=== PATIENT | female | born 1975 | race Caucasian/White ===

== ENCOUNTER 2017-04-19 20:14 | Emergency (ER) | payer OTHER ==
[~2017-04-19] VITALS: Ht 172.7 cm; Wt 62.1 kg
[2017-04-19 21:21] LABS: BASO # 0.1 x10^3/uL (0.0-0.2); BASO % 1 % (0-3); EOS % 0 % (0-3); HEMOGLOBIN 13.7 g/dL (12.0-15.5); LYMPH # 2.3 x10^3/uL (1.0-4.8); LYMPH % 20 % (24-48); MEAN CORPUSCULAR HEMOGLOBIN 33 pg (25-35); MEAN CORPUSCULAR HGB CONC 34 g/dL (31-37); MEAN CORPUSCULAR VOLUME 97 fL (79-100); MONO % 4 % (0-9); NEUT % 74 % (31-73); PLATELET COUNT 229 x10^3/uL (140-400); RED BLOOD COUNT 4.11 x10^6/uL (3.50-5.40); RED CELL DISTRIBUTION WIDTH 12.5 % (11.5-14.5); WHITE BLOOD COUNT 11.5 x10^3/uL (4.0-11.0)
[2017-04-19 21:38] LABS: ALBUMIN 4.2 g/dL (3.4-5.0); ALBUMIN/GLOBULIN RATIO 1.5 (1.0-1.7); CALCIUM 8.5 mg/dL (8.5-10.1); CREATININE 0.9 mg/dL (0.6-1.0); GFR 69.3; TOTAL BILIRUBIN 0.8 mg/dL (0.2-1.0)
[2017-04-19 21:40] LABS: POTASSIUM 2.9 mmol/L (3.5-5.1)
[2017-04-19] MEDS ORDERED: POTASSIUM CHLORIDE 20 MEQ TABLET.ER. PO ONE (21:45)
--- NOTE | 2017-04-19 21:47 | RAD ---
CT scan of the head without contrast 04/19/2017 Clinical History: Syncope. Technique: Unenhanced, contiguous, 5 mm axial sections were obtained through the head. One or more of the following individualized dose reduction techniques were utilized for this study: 1. Automated exposure control. 2. Adjustment of the mA and/or kV according to patient size. 3. Use of iterative reconstruction technique. Findings: The ventricles and sulci are within normal limits in size and configuration. No focal area of abnormal attenuation is seen involving the brain parenchyma. No extra-axial fluid collection is seen. No skull fracture is seen. Impression: Negative study. Electronically signed by: Charlie Ramirez MD (04/19/2017 9:43 PM) [facility]
--- NOTE | 2017-04-19 22:17 | PHYS DOC ---
Past Medical History Past Medical History: Asthma Past Surgical History: No Surgical History Alcohol Use: Heavy Drug Use: None Adult General Chief Complaint Chief Complaint: SYNCOPE HPI HPI Patient is a 42 year old female who presents here today secondary to syncopal episode. Family reports that she was drinking alcohol today proximally 6-8 beers and passed out while she was sitting in a chair and hit her head on the concrete. Patient denies any history of hypertension diabetes liver longer kidney pals. Patient reports she does have a history of asthma. Patient denies any history of coronary disease or strokes in the past. Patient denies any prior surgeries. Patient reports she does smoke and occasionally drinks no drugs. Patient's last period was approximately 2 weeks ago. Patient has any fevers shakes chills nausea vomiting diarrhea chest pain terns breath abdominal pain dysuria frequency or urgency. Patient denies any C-spine L-spine or T- spine tenderness. Family reports that she fell down and hit her head and became lucid approximately 10 seconds after she hit her head. Patient reports she currently feels back to baseline and is requesting a CAT scan. Review of Systems Review of Systems Constitutional: Denies fever or chills Eyes: Denies change in visual acuity, redness, or eye pain All other review systems are negative except as documented in the history of present illness portion. Current Medications Current Medications Current Medications Medications (Trade) Dose Ordered Sig/Alysia Start Time Stop Time Status Last Admin Dose Admin Potassium Chloride (Klor-Con) 40 meq 1X ONCE 04/19/17 21:45 04/19/17 21:46 DC Allergies Allergies Allergies Coded Allergies Type Severity Reaction Last Updated Verified amoxicillin Allergy Intermediate Nausea and Vomiting 04/19/17 Yes clavulanic acid Allergy Intermediate Nausea and Vomiting 04/19/17 Yes Physical Exam Physical Exam Constitutional: Well developed, well nourished, no acute distress, non-toxic appearance. [] HENT: Normocephalic, atraumatic, bilateral external ears normal, oropharynx moist, no oral exudates, nose normal. [] Eyes: PERRLA, EOMI, conjunctiva normal, no discharge. [] Neck: Normal range of motion, no tenderness, supple, no stridor. [] Cardiovascular:Heart rate regular rhythm, no murmur [] Lungs & Thorax: Bilateral breath sounds clear to auscultation [] Abdomen: Bowel sounds normal, soft, no tenderness, no masses, no pulsatile masses. [] Skin: Warm, dry, no erythema, no rash. [] Back: No tenderness, no CVA tenderness. [] Extremities: No tenderness, no cyanosis, no clubbing, ROM intact, no edema. [] Neurologic: Alert and oriented X 3, normal motor function, normal sensory function, no focal deficits noted. [] Psychologic: Affect normal, judgement normal, mood normal. [] Current Patient Data Vital Signs Vital Signs Date Time Temp Pulse Resp B/P (MAP) Pulse Ox O2 Delivery O2 Flow Rate FiO2 04/19/17 20:47 98 16 113/63 (80) 97 04/19/17 20:17 97.5 Room Air 97.5 Lab Values Laboratory Tests Test 04/19/17 20:30 White Blood Count 11.5 x10^3/uL (4.0-11.0) H Red Blood Count 4.11 x10^6/uL (3.50-5.40) Hemoglobin 13.7 g/dL (12.0-15.5) Hematocrit 40.0 % (36.0-47.0) Mean Corpuscular Volume 97 fL (79-100) Mean Corpuscular Hemoglobin 33 pg (25-35) Mean Corpuscular Hemoglobin Concent 34 g/dL (31-37) Red Cell Distribution Width 12.5 % (11.5-14.5) Platelet Count 229 x10^3/uL (140-400) Neutrophils (%) (Auto) 74 % (31-73) H Lymphocytes (%) (Auto) 20 % (24-48) L Monocytes (%) (Auto) 4 % (0-9) Eosinophils (%) (Auto) 0 % (0-3) Basophils (%) (Auto) 1 % (0-3) Neutrophils # (Auto) 8.5 x10^3uL (1.8-7.7) H Lymphocytes # (Auto) 2.3 x10^3/uL (1.0-4.8) Monocytes # (Auto) 0.5 x10^3/uL (0.0-1.1) Eosinophils # (Auto) 0.0 x10^3/uL (0.0-0.7) Basophils # (Auto) 0.1 x10^3/uL (0.0-0.2) Sodium Level 134 mmol/L (136-145) L Potassium Level 2.9 mmol/L (3.5-5.1) *L Chloride Level 97 mmol/L (98-107) L Carbon Dioxide Level 22 mmol/L (21-32) Anion Gap 15 (6-14) H Blood Urea Nitrogen 6 mg/dL (7-20) L Creatinine 0.9 mg/dL (0.6-1.0) Estimated GFR (Cockcroft-Gault) 69.3 BUN/Creatinine Ratio 7 (6-20) Glucose Level 87 mg/dL (70-99) Calcium Level 8.5 mg/dL (8.5-10.1) Total Bilirubin 0.8 mg/dL (0.2-1.0) Aspartate Amino Transferase (AST) 16 U/L (15-37) Alanine Aminotransferase (ALT) 18 U/L (14-59) Alkaline Phosphatase 38 U/L (46-116) L Troponin I Quantitative < 0.017 ng/mL (0.000-0.055) Total Protein 7.0 g/dL (6.4-8.2) Albumin 4.2 g/dL (3.4-5.0) Albumin/Globulin Ratio 1.5 (1.0-1.7) Ethyl Alcohol Level 257 mg/dL (0-10) H Laboratory Tests 04/19/17 20:30 Laboratory Tests 04/19/17 20:30 EKG EKG [] Radiology/Procedures Radiology/Procedures []EKG reveals normal sinus rhythm at [address]-T wave abnormalities with no evidence of STEMI. Interpreted by NIKKO Menchaca CT scan of the head reveals no acute pathology. Course & Med Decision Making Course & Med Decision Making Pertinent Labs and Imaging studies reviewed. (See chart for details) []This is a 42-year-old female who presents here today after syncopal episode most likely secondary to alcohol intoxication. Patient's workup in ER has been unremarkable except for hypokalemia. Patient was repleted in the ED with by mouth potassium. Patient is CT scan of her head which was normal. Patient's CBC and chemistry were also unremarkable other than hypokalemia. Patient's alcohol level was elevated. Patient will be discharged home in stable condition with family who are sober and feel comfortable taking her home and will be we'll observe her at home. Kvng Disclaimer Dragon Disclaimer This electronic medical record was generated, in whole or in part, using a voice recognition dictation system. Departure Departure Impression: Primary Impression: Alcohol intoxication Additional Impressions: Head trauma Hypokalemia Disposition: HOME, SELF-CARE Condition: STABLE Referrals: NEREYDA CLAY MD (PCP) Problem Qualifiers ENMA HUNTER MD Apr 19, 2017 22:17
[2017-04-19 23:00] VITALS: BP 103/60
--- NOTE | 2017-04-20 12:48 | EKG ---
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
== END 2017-04-19 23:11 | disposition home or self-care (01) ==
LOC: ER 20:14
DX: S09.90XA Unspecified injury of head, initial encounter (principal); E87.6 Hypokalemia; F10.129 Alcohol abuse with intoxication, unspecified; J45.909 Unspecified asthma, uncomplicated; Y90.8 Blood alcohol level of 240 mg/100 ml or more; Z88.8 Allergy status to other drugs, medicaments and biological substances; Z88.1 Allergy status to other antibiotic agents; W07.XXXA Fall from chair, initial encounter; Y93.89 Activity, other specified; Y92.89 Other specified places as the place of occurrence of the external cause; Y99.8 Other external cause status
CPT/HCPCS: 36415; 70450; 80053; 84484; 85025; 93005; 99285; G0480

== ENCOUNTER → 2017-05-14 | Outpatient (CLI) | payer OTHER ==
[2017-04-19 23:00] VITALS: BP 103/60
--- NOTE | 2017-05-14 16:35 | CARD ---
APPROVED REPORT EXAM: Two-dimensional and M-mode echocardiogram with Doppler and color Doppler. Other Information Quality : Good INDICATION Syncope 2D DIMENSIONS Left Atrium(2D)3.0 (1.6-4.0cm)IVSd1.0 (0.7-1.1cm) Aortic Root(2D)2.6 (2.0-3.7cm)LVDd4.4 (3.9-5.9cm) LVOT Diameter1.9 (1.8-2.4cm)PWd1.0 (0.7-1.1cm) LVDs3.0 (2.5-4.0cm)FS (%) 32.2 % SV53.8 mlLVEF(%)60.5 (>50%) Aortic Valve AoV Peak Marcos.141.3cm/sAoV VTI29.0cm AO Peak GR.8.0mmHgLVOT Peak Marcos.123.2cm/s AO Mean GR.5mmHgAVA (VMAX)2.60cm2 PETER (VTI)2.50cm2 Mitral Valve MV E Heqfedmx22.5cm/sMV DECEL NTCC529qj MV A Yqwbtuit65.3cm/sE/A Ratio1.3 Tricuspid Valve TR P. Tpkjlyos868xk/sRAP CDEOOVRC3jmWj TR Peak Gr.65lcUyXKNF23usUa LEFT VENTRICLE The left ventricle is normal size. There is normal left ventricular wall thickness. Left ventricle sy stolic function is normal. The Ejection Fraction is 55-60%. There is normal LV segmental wall motion. The left ventricular diastolic function and filling is normal for age. RIGHT VENTRICLE The right ventricle is normal size. The right ventricular systolic function is normal. ATRIA The left atrium size is normal. The right atrium size is normal. The interatrial septum is intact wit h no evidence for an atrial septal defect or patent foramen ovale as noted on 2-D or Doppler imaging. AORTIC VALVE The aortic valve is normal in structure and function. Doppler and Color Flow revealed no significant aortic regurgitation. There is no significant aortic valvular stenosis. MITRAL VALVE The mitral valve is normal in structure and function. There is no evidence of mitral valve prolapse. There is no mitral valve stenosis. Doppler and Color Flow revealed no mitral valve regurgitation note d. TRICUSPID VALVE The tricuspid valve is normal in structure and function. Doppler and Color Flow revealed mild tricusp id regurgitation. PULMONIC VALVE The pulmonary valve is normal in structure and function. Doppler and Color Flow revealed no pulmonic valvular regurgitation. There is no pulmonic valvular stenosis. GREAT VESSELS The aortic root is normal in size. The ascending aorta is normal in size. The IVC is normal in size a nd collapses >50% with inspiration. PERICARDIAL EFFUSION There is no pleural effusion. There is no evidence of significant pericardial effusion. Critical Notification Critical Value: No <Conclusion> Left ventricle systolic function is normal. The Ejection Fraction is 55-60%. There is normal LV segmental wall motion. Doppler and Color Flow revealed mild tricuspid regurgitation. There is no evidence of significant pericardial effusion.
== END | disposition home or self-care (01) ==
LOC: ECHO 09:48
PROVIDERS: ATTEND Family Medicine
DX: I07.1 Rheumatic tricuspid insufficiency (principal); R55 Syncope and collapse
CPT/HCPCS: 93306

== ENCOUNTER → 2019-06-09 | Day surgery (SDC) | payer OTHER ==
[~2019-06-09] MED LIST: ALBU2.5V8 INH; BUDE10.2 IH; CETI10TA22 PO; IV RINGERS,LACTATED 1000ML 1,000 ML IV SCH; LIDOCAINE 1% PF 2 ML VIAL. ID PRN; LIDOCAINE 2% PF 5 ML VIAL. ONE; MIDAZOLAM HCL/PF 2 MG/2 ML VIAL. IV PRN; PROPOFOL 40 ML IV ONE; fentaNYL PF VIAL 100 MCG/2 ML VIAL IV PRN
[2019-06-09 08:27] VITALS: BP 104/57
--- NOTE | 2019-06-10 15:07 | PATHOLOGY ---
[facility] Accession Number: [id number] . 01 Material submitted: . rectosigmoid junction - BIOPSY RECTO-SIGMOID MASS . 01 Clinical history: . Abnormal CT scan, diarrhea, rectal bleeding . 02 Diagnosis: Colorectal biopsies, rectosigmoid mass: - ADENOCARCINOMA, MODERATELY DIFFERENTIATED. . (JPM:michael; 06/10/2019) S 06/10/2019 0919 Local . 02 Comment: Sections of the rectosigmoid mass biopsy reveal multiple segments of colonic mucosa. There focally appear to be malignant glands infiltrating a reactive desmoplastic stroma. The remaining biopsy segments reveal colonic glands showing focal hyperplastic changes with focally admixed dysplastic glands showing high-grade dysplasia. The morphologic findings are supportive of the diagnosis of a moderately differentiated colorectal adenocarcinoma. The case is also examined by Dr. Lundberg, who concurs with the diagnosis. (JPM:michael; 06/10/2019) . 02 Electronically signed: . Maximus Chahal MD, Pathologist NPI- [id number] . 01 Gross description: . The specimen is received in formalin, labeled "Indu Contreras, biopsy recto-sigmoid mass", are few irregular fragments of florez soft tissue measuring 0.5 x 0.4 x 0.1 cm in aggregate. Entirely submitted in A1. ([facility]; 06/09/2019) [facility] 06/09/2019 1838 Local . 02 Pathologist provided ICD-10: C19 . 02 CPT . 357712 Specimen Comment: A courtesy copy of this report has been sent to [phone], [phone] Specimen Comment: [id number] Specimen Comment: Report sent to / DR CARDONA Performed at: [address] [place] [address] [address], [place], [place] [id number] MD Miguel Angel Radford MD Phone: [phone] Performed at: [address] [id number] MD Maximus Chahal MD Phone: [phone]
== END ==
LOC: ENDOS 06:25
PROVIDERS: ATTEND Internal Medicine Gastroenterology
DX: K92.1 Melena (principal); C19 Malignant neoplasm of rectosigmoid junction; K64.0 First degree hemorrhoids; J45.909 Unspecified asthma, uncomplicated; K21.9 Gastro-esophageal reflux disease without esophagitis; F15.90 Other stimulant use, unspecified, uncomplicated; Z88.1 Allergy status to other antibiotic agents; Z88.8 Allergy status to other drugs, medicaments and biological substances; Z72.89 Other problems related to lifestyle; Z98.51 Tubal ligation status
CPT/HCPCS: 45331; 45335; 81025; 88305; J2001; J2704

== ENCOUNTER 2019-06-21 05:38 | Inpatient (IN) | payer OTHER ==
[~2019-06-21] VITALS: Ht 172.7 cm; Wt 66.5 kg
[~2019-06-21 05:38] MED LIST changes: +FLUT9.9S NS; -IV RINGERS,LACTATED 1000ML 1,000 ML IV SCH; -LIDOCAINE 1% PF 2 ML VIAL. ID PRN; -LIDOCAINE 2% PF 5 ML VIAL. ONE; -MIDAZOLAM HCL/PF 2 MG/2 ML VIAL. IV PRN; -PROPOFOL 40 ML IV ONE; -fentaNYL PF VIAL 100 MCG/2 ML VIAL IV PRN
[2019-06-21] MEDS ORDERED: ACETAMINOPHEN 500 MG TABLET PO PRN (06:00)
[2019-06-21] MEDS ORDERED: ceFAZolin 1GM IVPB FOR OMNI 1 GM/50 ML BAG IV ONE (07:00)
[2019-06-21] MEDS ORDERED: ONDANSETRON PF 4 MG/2 ML VIAL. IV PRN (07:00)
[2019-06-21] MEDS ORDERED: fentaNYL PF VIAL 100 MCG/2 ML VIAL IV PRN (07:00)
[2019-06-21] MEDS ORDERED: PROCHLORPERAZINE 10 MG/2 ML VIAL. IV PRN (07:00)
[2019-06-21] MEDS ORDERED: LIDOCAINE 1% PF 2 ML VIAL. ID PRN (07:00)
[2019-06-21] MEDS ORDERED: IV RINGERS,LACTATED 1000ML 1,000 ML IV SCH (07:00)
[2019-06-21] MEDS ORDERED: ONDANSETRON PF 4 MG/2 ML VIAL. ONE (07:20)
[2019-06-21] MEDS ORDERED: FAMOTIDINE 20 MG/2 ML VIAL ONE (07:20)
[2019-06-21] MEDS ORDERED: PROPOFOL 20 ML IV ONE (07:20)
[2019-06-21] MEDS ORDERED: DEXAMETHASONE SOD PHOS 4 MG/ML VIAL ONE (07:20)
[2019-06-21] MEDS ORDERED: fentaNYL PF VIAL 100 MCG/2 ML VIAL ONE ×3 (07:21→09:48)
[2019-06-21] MEDS ORDERED: MIDAZOLAM HCL/PF 2 MG/2 ML VIAL. ONE (07:21)
[2019-06-21] MEDS ORDERED: ROCURONIUM 50 MG/5 ML VIAL. ONE (07:21)
[2019-06-21] MEDS ORDERED: KETAMINE HCL IN NACL, ISO-OSM 50 MG/5 ML SYRINGE ONE (07:56)
[2019-06-21] MEDS ORDERED: NEOSTIGMINE METHYLSULFATE 5 MG/5 ML SYRINGE. ONE (08:57)
[2019-06-21] MEDS ORDERED: GLYCOPYRROLATE 1 MG/5 ML VIAL. ONE (08:58)
--- NOTE | 2019-06-21 09:20 | PDOC4 ---
Operative Note Operative Note Date: 06/21/2019 Preoperative diagnosis colorectal cancer rectosigmoid junction Postoperative diagnosis: Same Procedure: Sigmoid colon resection with low anterior stapled anastomosis Surgeon: Merrick Telephoto Installer surgeon: Michael Dictation: Patient is a 44-year-old female who underwent colonoscopy for rectal bleeding was found to have a nearly obstructing colon mass at the rectosigmoid junction biopsy showing adenocarcinoma of the colon. The procedure of sigmoid colon resection with anastomosis was explained to the patient in detail risks benefits were also discussed including bleeding infection inability to heal anastomosis with leakage with possible necessary second operation. Alternatives to this procedure also discussed with the patient who seemed to understand and gave both verbal and written consent had procedure performed. Patient was taken to the operating room placed in supine position general anesthesia was initiated once patient was sleep and intubated she is placed in low lithotomy positioning her peritoneum was prepped and draped usual sterile fashion using Betadine solution and her abdomen was prepped and draped in usual sterile fashion using ChloraPrep. A midline incision was made from the pubic symphysis to just below the umbilicus is carried down through the subcutaneous tissue using electrocautery divided hemostasis down to the fascia fashion was opened with cautery and the peritoneum was further open electrocautery. On examining the abd omen the tumor could be felt right at the rectosigmoid junction just beneath the peritoneal reflection no metastatic disease was grossly visualized. Bookwalter was placed in the left colon was freed up from the left abdominal wall along the white line of Toldt with electrocautery. The left ureter was visualized and protected laterally the impact LigaSure was used to ligate and transect the posterior attachments to the rectum. A contour stapler was used to staple and transect the proximal colon. The distal rectosigmoid area was freed up from its attachments anteriorly laterally and posteriorly the right ureter was also visualized and protected laterally once there was plenty of length distal to the tumor a contour stapler again was used to staple and transect the distal rectum. Specimen sent for pathology. At this point Dr. Rodriguez went below to the peritoneum and a pursestring was placed on the proximal colon as well as a 29 mm anvil within the proximal colon and the pursestring suture was then tied. Using a EEA stapler this was placed through the rectum and the ample with the proximal colon was placed onto the EEA stapler this was tightened and fired. There were 2 good [address]nuts completely circumferential. Dr. Rodriguez then placed a proctoscope and insufflated the rectum and sigmoid colon there were no bubbles noted within the saline solution within the abdomen this was then suctioned dry. The abdomen again was irrigated and suctioned dry and the peritoneum was closed with a 2-0 running Vicryl suture and the fascia was closed with a looped 0 PDS. The subcutaneous layers closed running 2-0 Vicryl and the skin was approximate for septic and a Monocryl Mastisol Steri-Strips and island dressing were applied. Patient was awakened and bated operating room taken to recovery in stable condition all sponge instrument needle counts listed as correct estimated blood loss 20 mL ANDRES RIVERA MD Jun 21, 2019 09:20
[2019-06-21] MEDS ORDERED: SEVOFLURANE > 120 MINUTES. IH ONE (09:21)
[2019-06-21] MEDS ORDERED: oxyCODONE/APAP 5/325 1 TAB TABLET PO PRN (09:30)
[2019-06-21] MEDS ORDERED: 0.9 % SODIUM CHLORIDE 10 ML DISP.SYRIN. IV PRN (09:30)
[2019-06-21] MEDS: fentaNYL PF VIAL 100 MCG/2 ML VIAL IV PRN ×2 (09:53→10:07)
[2019-06-21] MEDS ORDERED: MORPHINE SULFATE 2 MG/ML VIAL. ONE (10:15)
[2019-06-21] MEDS: MORPHINE SULFATE 2 MG/ML VIAL. IV PRN ×6 (10:19→22:54)
[2019-06-21] MEDS ORDERED: HYDROmorphone 2 MG/ML VIAL ONE (10:36)
[2019-06-21] MEDS: HYDROmorphone 2 MG/ML VIAL IV PRN ×3 (10:40→11:03)
[2019-06-21] MEDS: IV DEXTROSE 5%-LACT RINGERS 1,000 ML IV SCH ×2 (11:52→23:48)
[2019-06-21] MEDS: KETOROLAC 15 MG/ML VIAL. IV SCH ×3 (11:52→23:48)
[2019-06-21 12:24] VITALS: BP 100/45
[2019-06-21 12:45] VITALS: BP 100/49
[2019-06-21] MEDS ORDERED: ceFAZolin SODIUM 1 GM in IV DEXTROSE 5% 50 ML IV SCH (14:00)
[2019-06-21 15:00] VITALS: BP 100/45
[2019-06-21] MEDS: ceFAZolin SODIUM IV Push 1 GM VIAL. IVP SCH ×2 (16:23→23:48)
[2019-06-21 19:00] VITALS: BP 98/41
[2019-06-21 23:00] VITALS: BP 90/40
[2019-06-21 23:55] VITALS: BP 92/54
[2019-06-22 03:00] VITALS: BP 90/48
[2019-06-22] MEDS: MORPHINE SULFATE 2 MG/ML VIAL. IV PRN ×4 (04:01→16:01)
[2019-06-22 04:11] LABS: BASO % 0 % (0-3); EOS % 0 % (0-3); HEMOGLOBIN 10.9 g/dL (12.0-15.5); LYMPH # 1.5 x10^3/uL (1.0-4.8); LYMPH % 18 % (24-48); MEAN CORPUSCULAR HEMOGLOBIN 33 pg (25-35); MEAN CORPUSCULAR HGB CONC 34 g/dL (31-37); MEAN CORPUSCULAR VOLUME 96 fL (79-100); MONO # 0.5 x10^3/uL (0.0-1.1); MONO % 6 % (0-9); NEUT % 75 % (31-73); PLATELET COUNT 209 x10^3/uL (140-400); RED BLOOD COUNT 3.33 x10^6/uL (3.50-5.40); RED CELL DISTRIBUTION WIDTH 12.3 % (11.5-14.5)
[2019-06-22] MEDS: KETOROLAC 15 MG/ML VIAL. IV SCH ×3 (06:13→17:23)
[2019-06-22 07:00] VITALS: BP 94/51
[2019-06-22] MEDS: ceFAZolin SODIUM IV Push 1 GM VIAL. IVP SCH (07:24)
--- NOTE | 2019-06-22 09:12 | PDOC ---
DONALD JHAVERI PILOT SUPERVISOR 06/22/19 0912: SURGICAL PROGRESS NOTE Subjective no flatus hungry, pain Vital Signs Vital Signs Date Time Temp Pulse Resp B/P (MAP) Pulse Ox O2 Delivery O2 Flow Rate FiO2 06/22/19 07:56 16 Room Air 06/22/19 07:00 98.1 67 94/51 (65) 96 98.1 06/22/19 03:00 2.0 I&O Intake and Output 06/22/19 07:00 Intake Total 2655 ml Output Total 580 ml Balance 2075 ml Intake IV Total 2655 ml Output Urine Total 550 ml Estimated Blood Loss 30 ml PATIENT HAS A NIETO: Yes (dc today) General: Alert, Oriented X3, Cooperative Abdomen: Soft, Other (dressing dry) Labs Laboratory Tests Test 06/21/19 06:08 06/22/19 03:35 Bedside Urine HCG, Qualitative Hcg negative (Negative) White Blood Count 8.0 x10^3/uL (4.0-11.0) Red Blood Count 3.33 x10^6/uL (3.50-5.40) Hemoglobin 10.9 g/dL (12.0-15.5) Hematocrit 32.0 % (36.0-47.0) Mean Corpuscular Volume 96 fL (79-100) Mean Corpuscular Hemoglobin 33 pg (25-35) Mean Corpuscular Hemoglobin Concent 34 g/dL (31-37) Red Cell Distribution Width 12.3 % (11.5-14.5) Platelet Count 209 x10^3/uL (140-400) Neutrophils (%) (Auto) 75 % (31-73) Lymphocytes (%) (Auto) 18 % (24-48) Monocytes (%) (Auto) 6 % (0-9) Eosinophils (%) (Auto) 0 % (0-3) Basophils (%) (Auto) 0 % (0-3) Neutrophils # (Auto) 6.0 x10^3/uL (1.8-7.7) Lymphocytes # (Auto) 1.5 x10^3/uL (1.0-4.8) Monocytes # (Auto) 0.5 x10^3/uL (0.0-1.1) Eosinophils # (Auto) 0.0 x10^3/uL (0.0-0.7) Basophils # (Auto) 0.0 x10^3/uL (0.0-0.2) Laboratory Tests Test 06/22/19 03:35 White Blood Count 8.0 x10^3/uL (4.0-11.0) Red Blood Count 3.33 x10^6/uL (3.50-5.40) Hemoglobin 10.9 g/dL (12.0-15.5) Hematocrit 32.0 % (36.0-47.0) Mean Corpuscular Volume 96 fL (79-100) Mean Corpuscular Hemoglobin 33 pg (25-35) Mean Corpuscular Hemoglobin Concent 34 g/dL (31-37) Red Cell Distribution Width 12.3 % (11.5-14.5) Platelet Count 209 x10^3/uL (140-400) Neutrophils (%) (Auto) 75 % (31-73) Lymphocytes (%) (Auto) 18 % (24-48) Monocytes (%) (Auto) 6 % (0-9) Eosinophils (%) (Auto) 0 % (0-3) Basophils (%) (Auto) 0 % (0-3) Neutrophils # (Auto) 6.0 x10^3/uL (1.8-7.7) Lymphocytes # (Auto) 1.5 x10^3/uL (1.0-4.8) Monocytes # (Auto) 0.5 x10^3/uL (0.0-1.1) Eosinophils # (Auto) 0.0 x10^3/uL (0.0-0.7) Basophils # (Auto) 0.0 x10^3/uL (0.0-0.2) Assessment/Plan pod#1 sigmoid resection await bowel function dc nieto ambulate add lovenox ANDRES RIVERA MD 06/22/19 1109: SURGICAL PROGRESS NOTE Assessment/Plan Patient doing quite well has not passed any flatus but has active bowel sounds no nausea. Abdomen soft nondistended mildly tender along the incision. Agree with Love assessment and plan we'll start clear liquid diet DONALD JHAVERI APRN Jun 22, 2019 09:12 ANDRES RIVERA MD Jun 22, 2019 11:09
[2019-06-22 11:00] VITALS: BP_SYST 53
[2019-06-22] MEDS: IV DEXTROSE 5%-LACT RINGERS 1,000 ML IV SCH ×2 (11:47→22:03)
--- NOTE | 2019-06-22 13:02 | NUR ---
SW following for discharge planning. Discussed with RN, pt is from home with . RN advised no SW needs at this time. SW will continue to follow.
[2019-06-22] MEDS: ENOXAPARIN 40 MG/0.4 ML SYRINGE. SQ SCH (14:22)
[2019-06-22 15:00] VITALS: BP 92/45
[2019-06-22 19:15] VITALS: BP 80/38
[2019-06-22] MEDS: oxyCODONE/APAP 5/325 1 TAB TABLET PO PRN (22:02)
[2019-06-22] MEDS: ONDANSETRON PF 4 MG/2 ML VIAL. IV PRN (22:02)
[2019-06-22 23:07] VITALS: BP 95/56
[2019-06-23] MEDS: KETOROLAC 15 MG/ML VIAL. IV SCH ×2 (00:03→05:26)
[2019-06-23 02:46] VITALS: BP 87/42
[2019-06-23] MEDS: ONDANSETRON PF 4 MG/2 ML VIAL. IV PRN ×2 (06:53→20:21)
[2019-06-23 07:00] VITALS: BP 98/62
--- NOTE | 2019-06-23 08:10 | NUR ---
SW following. Pt from home. RN advised no SW needs at this time. SW will continue to follow.
[2019-06-23] MEDS: oxyCODONE/APAP 5/325 1 TAB TABLET PO PRN ×4 (08:50→22:51)
--- NOTE | 2019-06-23 09:41 | PDOC ---
DONALD JHAVERI BEHAVIORAL GENETICIST 06/23/19 0941: SURGICAL PROGRESS NOTE Subjective + flatus some nausea last night pain managed Vital Signs Vital Signs Date Time Temp Pulse Resp B/P (MAP) Pulse Ox O2 Delivery O2 Flow Rate FiO2 06/23/19 08:50 16 Room Air 06/23/19 07:00 98.1 74 98/62 (74) 95 98.1 I&O Intake and Output 06/23/19 07:00 Intake Total 480 ml Balance 480 ml Intake Oral 480 ml # Voids 3 General: Alert, Oriented X3, Cooperative Abdomen: Soft, Other (ND) Labs Laboratory Tests Test 06/22/19 03:35 White Blood Count 8.0 x10^3/uL (4.0-11.0) Red Blood Count 3.33 x10^6/uL (3.50-5.40) Hemoglobin 10.9 g/dL (12.0-15.5) Hematocrit 32.0 % (36.0-47.0) Mean Corpuscular Volume 96 fL (79-100) Mean Corpuscular Hemoglobin 33 pg (25-35) Mean Corpuscular Hemoglobin Concent 34 g/dL (31-37) Red Cell Distribution Width 12.3 % (11.5-14.5) Platelet Count 209 x10^3/uL (140-400) Neutrophils (%) (Auto) 75 % (31-73) Lymphocytes (%) (Auto) 18 % (24-48) Monocytes (%) (Auto) 6 % (0-9) Eosinophils (%) (Auto) 0 % (0-3) Basophils (%) (Auto) 0 % (0-3) Neutrophils # (Auto) 6.0 x10^3/uL (1.8-7.7) Lymphocytes # (Auto) 1.5 x10^3/uL (1.0-4.8) Monocytes # (Auto) 0.5 x10^3/uL (0.0-1.1) Eosinophils # (Auto) 0.0 x10^3/uL (0.0-0.7) Basophils # (Auto) 0.0 x10^3/uL (0.0-0.2) Assessment/Plan s/p resection advance diet continue ambulating ok to shower ANDRES RIVERA MD 11/27/19 1110: SURGICAL PROGRESS NOTE Assessment/Plan Patient examined she is doing quite well resting comfortably in bed passing flatus today no nausea minimal pain. Wounds clean dry and intact. Agree with Love assessment and plan for advancing diet DONALD JHAVERI APRN Jun 23, 2019 09:41 ANDRES RIVERA MD Jun 23, 2019 11:10
[2019-06-23 11:00] VITALS: BP 104/52
[2019-06-23] MEDS: IV DEXTROSE 5%-LACT RINGERS 1,000 ML IV SCH (14:40)
[2019-06-23 15:00] VITALS: BP 102/66
[2019-06-23] MEDS: ENOXAPARIN 40 MG/0.4 ML SYRINGE. SQ SCH (17:54)
[2019-06-23 19:00] VITALS: BP 110/61
[2019-06-23 23:00] VITALS: BP 95/60
[2019-06-24 03:09] VITALS: BP 98/54
[2019-06-24] MEDS: IV DEXTROSE 5%-LACT RINGERS 1,000 ML IV SCH (04:00)
[2019-06-24] MEDS: oxyCODONE/APAP 5/325 1 TAB TABLET PO PRN ×2 (04:40→12:05)
[2019-06-24 07:00] VITALS: BP 90/50
[2019-06-24 10:59] VITALS: BP 106/64
[2019-06-24] MEDS: ONDANSETRON PF 4 MG/2 ML VIAL. IV PRN ×2 (12:06→18:21)
--- NOTE | 2019-06-24 13:02 | PDOC ---
PROGRESS NOTES Subjective Subjective doing well, asking for different pain med Objective Objective Vital Signs Date Time Temp Pulse Resp B/P (MAP) Pulse Ox O2 Delivery O2 Flow Rate FiO2 06/24/19 12:05 16 Room Air 06/24/19 10:59 98.4 70 106/64 (78) 97 98.4 06/23/19 19:17 2.0 Intake and Output 06/24/19 07:00 Intake Total 320 ml Balance 320 ml Intake Oral 320 ml # Voids 3 Physical Exam Abdomen: Soft, No tenderness Assessment Assessment Rectal cancer Plan Plan of Care Advance diet, change to [place] Comment Review of Relevant I have reviewed the following items gail (where applicable) has been applied. Medications Current Medications Ondansetron HCl (Zofran) 4 mg PRN Q6HRS PRN IV NAUSEA/VOMITING; Start 06/21/19 at 07:00; Stop 06/22/19 at 06:59; Status DC Fentanyl Citrate (Fentanyl 2ml Vial) 25 mcg PRN Q5MIN PRN IV MILD PAIN 1-3; Start 06/21/19 at 07:00; Stop 06/22/19 at 06:59; Status DC Fentanyl Citrate (Fentanyl 2ml Vial) 50 mcg PRN Q5MIN PRN IV MODERATE TO SEVERE PAIN Last administered on 06/21/19at 10:07; Start 06/21/19 at 07:00; Stop 06/22/19 at 06:59; Status DC Morphine Sulfate (Morphine Sulfate) 1 mg PRN Q10MIN PRN IV SEVERE PAIN 7-10 Last administered on 06/21/19at 10:35; Start 06/21/19 at 07:00; Stop 06/22/19 at 06:59; Status DC Ringer's Solution 1,000 ml @ 30 mls/hr Q24H IV Last administered on 06/21/19at 06:26; Start 06/21/19 at 07:00; Stop 06/21/19 at 18:59; Status DC Lidocaine HCl (Xylocaine-Mpf 1% 2ml Vial) 2 ml PRN 1X PRN ID PRIOR TO IV START; Start 06/21/19 at 07:00; Stop 06/22/19 at 06:59; Status DC Hydromorphone HCl (Dilaudid) 0.5 mg PRN Q10MIN PRN IV SEV PAIN, Second choice Last administered on 06/21/19at 11:03; Start 06/21/19 at 07:00; Stop 06/22/19 at 06:59; Status DC Prochlorperazine Edisylate (Compazine) 5 mg PACU PRN PRN IV NAUSEA, MRX1; Start 06/21/19 at 07:00; Stop 06/22/19 at 06:59; Status DC Acetaminophen (Tylenol) 1,000 mg 1X PREOP PRN PO PRIOR TO PROCEDURE Last administered on 06/21/19at 06:33; Start 06/21/19 at 06:00; Stop 06/21/19 at 15:00; Status DC Cefazolin Sodium 50 ml @ 100 mls/hr 1X PREOP PRN IV PRIOR TO PROCEDURE; Start 06/21/19 at 06:00; Stop 06/21/19 at 18:00; Status DC Propofol 20 ml @ As Directed STK-MED ONCE IV ; Start 06/21/19 at 07:20; Stop 06/21/19 at 07:21; Status DC Famotidine (Pepcid Vial) 20 mg STK-MED ONCE .ROUTE ; Start 06/21/19 at 07:20; Stop 06/21/19 at 07:21; Status DC Ondansetron HCl (Zofran) 4 mg STK-MED ONCE .ROUTE ; Start 06/21/19 at 07:20; Stop 06/21/19 at 07:21; Status DC Dexamethasone Sodium Phosphate (Decadron) 4 mg STK-MED ONCE .ROUTE ; Start 06/21/19 at 07:20; Stop 06/21/19 at 07:21; Status DC Rocuronium [place] (Zemuron) 50 mg STK-MED ONCE .ROUTE ; Start 06/21/19 at 07:21; Stop 06/21/19 at 07:21; Status DC Fentanyl Citrate (Fentanyl 2ml Vial) 100 mcg STK-MED ONCE .ROUTE ; Start 06/21/19 at 07:21; Stop 06/21/19 at 07:21; Status DC Midazolam HCl (Versed) 2 mg STK-MED ONCE .ROUTE ; Start 06/21/19 at 07:21; Stop 06/21/19 at 07:21; Status DC Ketamine HCl (Ketamine) 50 mg STK-MED ONCE .ROUTE ; Start 06/21/19 at 07:56; Stop 06/21/19 at 07:56; Status DC Cefazolin Sodium (Ancef 1gm Ivpb For Omni) 1 gm STK-MED ONCE IV ; Start 06/21/19 at 07:00; Stop 06/21/19 at 08:47; Status DC Neostigmine Methylsulfate (Neostigmine Methylsulfate) 5 mg STK-MED ONCE .ROUTE ; Start 06/21/19 at 08:57; Stop 06/21/19 at 08:58; Status DC Glycopyrrolate (Robinul) 1 mg STK-MED ONCE .ROUTE ; Start 06/21/19 at 08:58; Stop 06/21/19 at 08:58; Status DC Fentanyl Citrate (Fentanyl 2ml Vial) 100 mcg STK-MED ONCE .ROUTE ; Start 06/21/19 at 09:19; Stop 06/21/19 at 09:19; Status DC Sevoflurane (Ultane) 90 ml STK-MED ONCE IH ; Start 06/21/19 at 09:21; Stop 06/21/19 at 09:22; Status DC Sodium Chloride (Normal Saline Flush) 3 ml QSHIFT PRN IV AFTER MEDS AND BLOOD DRAWS; Start 06/21/19 at 09:30 Morphine Sulfate (Morphine Sulfate) 2 mg PRN Q3HRS PRN IV PAIN Last administered on 06/22/19at 16:01; Start 06/21/19 at 09:30 Oxycodone/ Acetaminophen (Percocet 5/325) 1 tab PRN Q4HRS PRN PO MILD PAIN, 1ST CHOICE Last administered on 06/24/19at 12:05; Start 06/21/19 at 09:30 Oxycodone/ Acetaminophen (Percocet 5/325) 2 tab PRN Q4HRS PRN PO MODERATE PAIN, SEVERE PAIN Last administered on 06/22/19at 14:22; Start 06/21/19 at 09:30 Ketorolac Tromethamine (Toradol 15mg Vial) 15 mg Q6HRS IV Last administered on 06/23/19at 05:26; Start 06/21/19 at 12:00; Stop 06/23/19 at 11:59; Status DC Ondansetron HCl (Zofran) 4 mg PRN Q6HRS PRN IV NAUSEA, 1ST CHOICE Last administered on 06/24/19at 12:06; Start 06/21/19 at 09:30 Dextrose/Lactated Ringer's 1,000 ml @ 75 mls/hr [id number] IV Last administered on 06/22/19at 22:03; Start 06/21/19 at 09:20 Cefazolin Sodium 1 gm/Dextrose 50 ml @ 100 mls/hr Q8HRS IV ; Start 06/21/19 at 14:00; Stop 06/23/19 at 06:00; Status UNV Fentanyl Citrate (Fentanyl 2ml Vial) 100 mcg STK-MED ONCE .ROUTE ; Start 06/21/19 at 09:48; Stop 06/21/19 at 09:49; Status DC Morphine Sulfate (Morphine Sulfate) 2 mg STK-MED ONCE .ROUTE ; Start 06/21/19 at 10:15; Stop 06/21/19 at 10:16; Status DC Hydromorphone HCl (Dilaudid) 2 mg STK-MED ONCE .ROUTE ; Start 06/21/19 at 10:36; Stop 06/21/19 at 10:36; Status DC Cefazolin Sodium (Ancef) 1 gm Q8H IVP Last administered on 06/22/19at 07:24; Start 06/21/19 at 15:45; Stop 06/22/19 at 07:46; Status DC Enoxaparin Sodium (Lovenox 40mg Syringe) 40 mg Q24H SQ Last administered on 06/23/19at 17:54; Start 06/22/19 at 15:00 Active Scripts Active Reported Flonase Allergy Relief (Fluticasone Propionate) 9.9 Ml [place].susp 1 Sprays NS DAILY Proair Hfa (Albuterol Sulfate) 8.5 Gm Hfa.aer.ad 1 Puff INH PRN Q6HRS PRN Zyrtec (Cetirizine Hcl) 10 Mg Tablet 10 Mg PO DAILY Symbicort 160-4.5 Mcg Inhaler (Budesonide/Formoterol Fumarate) 10.2 Gm Hfa.aer.ad 1 Puff IH DAILY Vitals/I & O Vital Sign - Last 24 Hours 06/23/19 06/23/19 06/23/19 06/23/19 13:26 15:00 17:54 18:44 Temp 97.9 97.9 Pulse 60 Resp 16 16 B/P (MAP) 102/66 (78) Pulse Ox 96 96 96 O2 Delivery Room Air Room Air Room Air Room Air O2 Flow Rate 2.0 2.0 06/23/19 06/23/19 06/23/19 06/23/19 19:00 19:17 20:00 22:51 Temp 97.5 97.5 Pulse 70 Resp 18 20 B/P (MAP) 110/61 (77) Pulse Ox 95 96 96 O2 Delivery Room Air Room Air Room Air Room Air O2 Flow Rate 2.0 06/23/19 06/23/19 06/24/19 06/24/19 23:00 23:51 03:09 04:40 Temp 97.9 97.5 97.9 97.5 Pulse 69 78 Resp 18 20 18 20 B/P (MAP) 95/60 (72) 98/54 (69) Pulse Ox 93 93 94 94 O2 Delivery Room Air Room Air Room Air Room Air 06/24/19 06/24/19 06/24/19 06/24/19 05:40 07:00 08:00 10:59 Temp 98.3 98.4 98.3 98.4 Pulse 74 70 Resp 20 16 16 B/P (MAP) 90/50 (63) 106/64 (78) Pulse Ox 95 97 O2 Delivery Room Air Room Air Room Air Room Air 06/24/19 12:05 Resp 16 O2 Delivery Room Air Intake and Output 06/23/19 06/23/19 06/24/19 15:00 23:00 07:00 Intake Total 320 ml Balance 320 ml DEVI WOLF MD Jun 24, 2019 13:02
[2019-06-24] MEDS ORDERED: HYDROcodone/APAP 5/325MG 1 TAB TABLET PO PRN (13:15)
[2019-06-24] MEDS: ENOXAPARIN 40 MG/0.4 ML SYRINGE. SQ SCH (15:11)
[2019-06-24 15:19] VITALS: BP 93/51
[2019-06-24 19:00] VITALS: BP 108/68
[2019-06-24] MEDS: HYDROcodone/APAP 5/325MG 1 TAB TABLET PO PRN (19:43)
[2019-06-24 23:00] VITALS: BP 87/47
[2019-06-25 03:00] VITALS: BP 92/45
[2019-06-25 04:59] LABS: HEMATOCRIT 31.8 % (36.0-47.0); HEMOGLOBIN 11.1 g/dL (12.0-15.5)
[2019-06-25 05:26] LABS: CREATININE 0.9 mg/dL (0.6-1.0); GFR 68.7
[2019-06-25] MEDS: HYDROcodone/APAP 5/325MG 1 TAB TABLET PO PRN (06:32)
[2019-06-25 07:15] VITALS: BP 111/57
[2019-06-25 11:08] VITALS: BP 95/49
--- NOTE | 2019-06-25 12:06 | PATHOLOGY ---
[facility] Accession Number: [id number] . 01 Material submitted: . PART A: sigmoid colon - SIGMOID COLON PART B: colon - ANASTAMOSIS RINGS . 02 Frozen section diagnosis: . INTRAOPERATIVE CONSULTATION WITH GROSS IMPRESSION (Maximus Chahal MD) . A. 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 . . The results are displayed to Dr. Sin in the pathology area. The specimen is fixed in formalin prior to additional sectioning. (JPM:michael; 06/21/2019) . . Intraoperative consultation performed at [facility], [address] [place] [address], [place] [address]. . . GROSS DESCRIPTION: A. The specimen is received fresh for intraoperative consultation and is designated, "sigmoid colon". This consists of a segment of sigmoid colon and proximal rectum with attached mesocolon and perirectal soft tissues. The segment measures 14 cm in length. The segment is stapled closed at both ends. The distal portion of the specimen measures up to 7.0 cm in width. The proximal mesocolon measures up to 3.5 cm in depth. There is a puckered area of the serosal surface of the distal sigmoid colon which is approximately 4.5 cm from the distal serosal surface. There is focal tattooing of the distal serosal surface. The segment is opened along the antimesocolic aspect. There is a circumferential, centrally ulcerated, pink to reddish florez tumor mass which measures up to 5.5 cm in length. The mass is approximately 3.5 cm from the distal margin. There may be an area of tumor undermining the mucosa distally which is approximately 2.5 cm from the distal margin. The tumor involves the distal sigmoid colon and rectosigmoid junction, where it appears to invade through the muscular wall into the mesocolic/perirectal soft tissues. The remainder of the colonic mucosa is pink to perez-florez. No additional polyps or tumor masses are identified. (JPM:michael; 06/21/2019) VIVIAN/MINDY . 02 Diagnosis: A. Sigmoid colon and proximal rectum with attached mesocolic and mesorectal soft tissues, low anterior colon resection: - INVASIVE COLORECTAL ADENOCARCINOMA, MODERATELY TO FOCALLY POORLY DIFFERENTIATED, FORMING A CIRCUMFERENTIAL, CENTRALLY ULCERATED, OBSTRUCTING TUMOR MASS OF THE DISTAL SIGMOID COLON AND RECTOSIGMOID JUNCTION MEASURING 5.5 CM IN GREATEST DIMENSION, WITH TUMOR INVASION THROUGH MUSCULAR WALL INTO SUBSEROSAL AND MESOCOLIC/MESORECTAL SOFT TISSUES AND WITH FOCAL PRESENCE OF TUMOR AT INKED SEROSAL SURFACE. - METASTATIC ADENOCARCINOMA INVOLVING 6 OF 10 MESOCOLIC/MESORECTAL LYMPH NODES (6/10). - Extranodal tumor implants of mesocolon/mesorectum, multiple. - Proximal, distal, and mesocolic/mesorectal margins of resection negative for tumor. - Focal submucosal lymphovascular tumor invasion. - Lymphovascular tumor invasion of mesocolon/mesorectum. - Focal perineural tumor invasion. . B. Segments (2) of colorectal tissue, anastomosis rings: - Focal submucosal tattooing - negative for tumor. (JPM:michael:db; 06/23/2019) . . Surgical Pathology Cancer Case Summary . COLON AND RECTUM Procedure ___ Low anterior resection . Tumor Site ___ Rectosigmoid region + Tumor Location + ___ Straddles the anterior peritoneal reflection . Tumor Size Greatest dimension: 5.5 cm . Macroscopic Tumor Perforation ___ Not identified + Macroscopic Intactness of Mesorectum + ___ Complete . Histologic Type ___ Adenocarcinoma . Histologic Grade ___ Other: Moderately to focally poorly differentiated . Tumor Extension ___ Tumor invades the visceral peritoneum . Margins ___ All margins are uninvolved by invasive carcinoma, high-grade dysplasia, intramucosal adenocarcinoma, and adenoma Margins examined: Proximal, distal, and mesocolic/mesorectal margins + Distance of invasive carcinoma from closest margin: 2.5 cm + Specify closest margin: Distal (rectal) margin . Treatment Effect ___ No known presurgical therapy . Lymphovascular Invasion ___ Present + ___ Small vessel lymphovascular invasion + ___ Large vessel (venous) invasion + ___ Intramural + ___ Extramural . Perineural Invasion ___ Present + Type of Polyp in Which Invasive Carcinoma Arose + ___ Tubular adenoma . Tumor Deposits ___ Present Specify number of deposits: Multiple . Regional Lymph Nodes Number of Lymph Nodes Involved: 6 Number of Lymph Nodes Examined: 10 . Pathologic Stage Classification (pTNM, AJCC 8th Edition) Primary Tumor (pT) ___ pT4a: Tumor invades through the visceral peritoneum Regional Lymph Nodes (pN) ___ pN2a: Four to six regional lymph nodes are positive + Additional Pathologic Findings + ___ None identified (JPM/db; 06/25/2019) QMS 06/25/2019 1112 Local . 02 Electronically signed: . Maximus Chahal MD, Pathologist NPI- [id number] . 01 Gross description: . A. SEE GROSS DESCRIPTION DICTATED BY THE PATHOLOGIST LOCATED UNDER THE FROZEN SECTION HEADING. Representatively submitted as follows: A1. Proximal margin en face. A2-A3. Distal margin en face. A4. Mesocolic margin. A5. Mass to puckered serosa (inked blue). A6. Mass, maximum height. A7. Mass with ulcerated focus. A8. Mass to proximal uninvolved parenchyma. A9. Mass to distal uninvolved parenchyma. A10. Proximal and distal uninvolved parenchyma (distal = inked black) A11. Three possible lymph nodes candidates, bisected and differentially inked (black, blue and green) A12. Three possible lymph nodes candidates, bisected and differentially inked (black, blue and green) A13. Six possible lymph nodes candidates, intact. A14. Six possible lymph nodes candidates, intact. A15. Possible matted lymph nodes. A16. Indurated focus with possible lymph node, serially sectioned A17. Indurated focus with possible matted lymph nodes, serially sectioned . B. The specimen is received in formalin, labeled "Ben, Indu, anastomosis rings", consists of 2 florez-pink mucosal covered donuts measuring 1.4 x 1.3 x 0.7 cm, trisected and entirely submitted in B1 and 1.5 x 1.5 x 1.3 cm, serially sectioned and entirely submitted in B2-B3. ([facility]; 06/22/2019) [facility] 06/25/2019 0940 [facility] . 02 Pathologist provided ICD-10: C19, C77.2 . 02 CPT . 662847, [id number], [id number] Specimen Comment: A courtesy copy of this report has been sent to [phone] Specimen Comment: Report sent to Performed at: 01 [facility] [address], [place] [id number] MD Miguel Angel Radford MD Phone: [phone] Performed at: 02 [facility] [address] [place], [place] [id number] MD Maximus Chahal MD Phone: [phone]
--- NOTE | 2019-06-25 12:29 | PDOC ---
PROGRESS NOTES Subjective Subjective doing well, +bowel function, taking PO Objective Objective Vital Signs Date Time Temp Pulse Resp B/P (MAP) Pulse Ox O2 Delivery O2 Flow Rate FiO2 06/25/19 11:08 97.7 69 18 95/49 (64) 96 Room Air 97.7 06/23/19 19:17 2.0 Intake and Output 06/25/19 07:00 Intake Total 350 ml Balance 350 ml Intake Oral 50 ml IV Total 300 ml # Voids 2 Physical Exam Abdomen: No tenderness Assessment Assessment S/P LAR Plan Plan of Care Discharge Comment Review of Relevant I have reviewed the following items gail (where applicable) has been applied. Labs Laboratory Tests Test 06/25/19 04:15 Hemoglobin 11.1 g/dL (12.0-15.5) Hematocrit 31.8 % (36.0-47.0) Mean Corpuscular Hemoglobin Concent 35 g/dL (31-37) Creatinine 0.9 mg/dL (0.6-1.0) Estimated GFR (Cockcroft-Gault) 68.7 Laboratory Tests Test 06/25/19 04:15 Hemoglobin 11.1 g/dL (12.0-15.5) Hematocrit 31.8 % (36.0-47.0) Mean Corpuscular Hemoglobin Concent 35 g/dL (31-37) Creatinine 0.9 mg/dL (0.6-1.0) Estimated GFR (Cockcroft-Gault) 68.7 Medications Current Medications Ondansetron HCl (Zofran) 4 mg PRN Q6HRS PRN IV NAUSEA/VOMITING; Start 06/21/19 at 07:00; Stop 06/22/19 at 06:59; Status DC Fentanyl Citrate (Fentanyl 2ml Vial) 25 mcg PRN Q5MIN PRN IV MILD PAIN 1-3; Start 06/21/19 at 07:00; Stop 06/22/19 at 06:59; Status DC Fentanyl Citrate (Fentanyl 2ml Vial) 50 mcg PRN Q5MIN PRN IV MODERATE TO SEVERE PAIN Last administered on 06/21/19at 10:07; Start 06/21/19 at 07:00; Stop 06/22/19 at 06:59; Status DC Morphine Sulfate (Morphine Sulfate) 1 mg PRN Q10MIN PRN IV SEVERE PAIN 7-10 Last administered on 06/21/19at 10:35; Start 06/21/19 at 07:00; Stop 06/22/19 at 06:59; Status DC Ringer's Solution 1,000 ml @ 30 mls/hr Q24H IV Last administered on 06/21/19at 06:26; Start 06/21/19 at 07:00; Stop 06/21/19 at 18:59; Status DC Lidocaine HCl (Xylocaine-Mpf 1% 2ml Vial) 2 ml PRN 1X PRN ID PRIOR TO IV START; Start 06/21/19 at 07:00; Stop 06/22/19 at 06:59; Status DC Hydromorphone HCl (Dilaudid) 0.5 mg PRN Q10MIN PRN IV SEV PAIN, Second choice Last administered on 06/21/19at 11:03; Start 06/21/19 at 07:00; Stop 06/22/19 at 06:59; Status DC Prochlorperazine Edisylate (Compazine) 5 mg PACU PRN PRN IV NAUSEA, MRX1; Start 06/21/19 at 07:00; Stop 06/22/19 at 06:59; Status DC Acetaminophen (Tylenol) 1,000 mg 1X PREOP PRN PO PRIOR TO PROCEDURE Last administered on 06/21/19at 06:33; Start 06/21/19 at 06:00; Stop 06/21/19 at 15:00; Status DC Cefazolin Sodium 50 ml @ 100 mls/hr 1X PREOP PRN IV PRIOR TO PROCEDURE; Start 06/21/19 at 06:00; Stop 06/21/19 at 18:00; Status DC Propofol 20 ml @ As Directed STK-MED ONCE IV ; Start 06/21/19 at 07:20; Stop 06/21/19 at 07:21; Status DC Famotidine (Pepcid Vial) 20 mg STK-MED ONCE .ROUTE ; Start 06/21/19 at 07:20; Stop 06/21/19 at 07:21; Status DC Ondansetron HCl (Zofran) 4 mg STK-MED ONCE .ROUTE ; Start 06/21/19 at 07:20; Stop 06/21/19 at 07:21; Status DC Dexamethasone Sodium Phosphate (Decadron) 4 mg STK-MED ONCE .ROUTE ; Start 06/21/19 at 07:20; Stop 06/21/19 at 07:21; Status DC Rocuronium [place] (Zemuron) 50 mg STK-MED ONCE .ROUTE ; Start 06/21/19 at 07:21; Stop 06/21/19 at 07:21; Status DC Fentanyl Citrate (Fentanyl 2ml Vial) 100 mcg STK-MED ONCE .ROUTE ; Start 06/21/19 at 07:21; Stop 06/21/19 at 07:21; Status DC Midazolam HCl (Versed) 2 mg STK-MED ONCE .ROUTE ; Start 06/21/19 at 07:21; Stop 06/21/19 at 07:21; Status DC Ketamine HCl (Ketamine) 50 mg STK-MED ONCE .ROUTE ; Start 06/21/19 at 07:56; Stop 06/21/19 at 07:56; Status DC Cefazolin Sodium (Ancef 1gm Ivpb For Omni) 1 gm STK-MED ONCE IV ; Start 06/21/19 at 07:00; Stop 06/21/19 at 08:47; Status DC Neostigmine Methylsulfate (Neostigmine Methylsulfate) 5 mg STK-MED ONCE .ROUTE ; Start 06/21/19 at 08:57; Stop 06/21/19 at 08:58; Status DC Glycopyrrolate (Robinul) 1 mg STK-MED ONCE .ROUTE ; Start 06/21/19 at 08:58; Stop 06/21/19 at 08:58; Status DC Fentanyl Citrate (Fentanyl 2ml Vial) 100 mcg STK-MED ONCE .ROUTE ; Start 06/21/19 at 09:19; Stop 06/21/19 at 09:19; Status DC Sevoflurane (Ultane) 90 ml STK-MED ONCE IH ; Start 06/21/19 at 09:21; Stop 06/21/19 at 09:22; Status DC Sodium Chloride (Normal Saline Flush) 3 ml QSHIFT PRN IV AFTER MEDS AND BLOOD DRAWS; Start 06/21/19 at 09:30 Morphine Sulfate (Morphine Sulfate) 2 mg PRN Q3HRS PRN IV PAIN Last administered on 06/22/19at 16:01; Start 06/21/19 at 09:30 Oxycodone/ Acetaminophen (Percocet 5/325) 1 tab PRN Q4HRS PRN PO MILD PAIN, 1ST CHOICE Last administered on 06/24/19at 12:05; Start 06/21/19 at 09:30; Stop 06/24/19 at 13:04; Status DC Oxycodone/ Acetaminophen (Percocet 5/325) 2 tab PRN Q4HRS PRN PO MODERATE PAIN, SEVERE PAIN Last administered on 06/22/19at 14:22; Start 06/21/19 at 09:30; Stop 06/24/19 at 13:04; Status DC Ketorolac Tromethamine (Toradol 15mg Vial) 15 mg Q6HRS IV Last administered on 06/23/19at 05:26; Start 06/21/19 at 12:00; Stop 06/23/19 at 11:59; Status DC Ondansetron HCl (Zofran) 4 mg PRN Q6HRS PRN IV NAUSEA, 1ST CHOICE Last administered on 06/24/19at 18:21; Start 06/21/19 at 09:30 Dextrose/Lactated Ringer's 1,000 ml @ 75 mls/hr [id number] Last administered on 06/22/19at 22:03; Start 06/21/19 at 09:20; Stop 06/24/19 at 13:05; Status DC Cefazolin Sodium 1 gm/Dextrose 50 ml @ 100 mls/hr Q8HRS IV ; Start 06/21/19 at 14:00; Stop 06/23/19 at 06:00; Status UNV Fentanyl Citrate (Fentanyl 2ml Vial) 100 mcg STK-MED ONCE .ROUTE ; Start 06/21/19 at 09:48; Stop 06/21/19 at 09:49; Status DC Morphine Sulfate (Morphine Sulfate) 2 mg STK-MED ONCE .ROUTE ; Start 06/21/19 at 10:15; Stop 06/21/19 at 10:16; Status DC Hydromorphone HCl (Dilaudid) 2 mg STK-MED ONCE .ROUTE ; Start 06/21/19 at 10:36; Stop 06/21/19 at 10:36; Status DC Cefazolin Sodium (Ancef) 1 gm Q8H IVP Last administered on 06/22/19at 07:24; Start 06/21/19 at 15:45; Stop 06/22/19 at 07:46; Status DC Enoxaparin Sodium (Lovenox 40mg Syringe) 40 mg Q24H SQ Last administered on 06/24/19at 15:11; Start 06/22/19 at 15:00 Acetaminophen/ Hydrocodone Bitart (Lortab 5/325) 1 tab PRN Q4HRS PRN PO MODERATE PAIN Last administered on 06/25/19at 06:32; Start 06/24/19 at 13:15 Acetaminophen/ Hydrocodone Bitart (Lortab 5/325) 2 tab PRN Q4HRS PRN PO SEVERE PAIN; Start 06/24/19 at 13:15 Active Scripts Active Reported Flonase Allergy Relief (Fluticasone Propionate) 9.9 Ml [place].susp 1 Sprays NS DAILY Proair Hfa (Albuterol Sulfate) 8.5 Gm Hfa.aer.ad 1 Puff INH PRN Q6HRS PRN Zyrtec (Cetirizine Hcl) 10 Mg Tablet 10 Mg PO DAILY Symbicort 160-4.5 Mcg Inhaler (Budesonide/Formoterol Fumarate) 10.2 Gm Hfa.aer.ad 1 Puff IH DAILY Vitals/I & O Vital Sign - Last 24 Hours 06/24/19 06/24/19 06/24/19 06/24/19 15:19 19:00 19:43 20:00 Temp 97.7 97.7 97.7 97.7 Pulse 74 67 Resp 16 18 20 B/P (MAP) 93/51 (65) 108/68 (81) Pulse Ox 98 94 O2 Delivery Room Air Room Air Room Air Room Air 06/24/19 06/24/19 06/25/19 06/25/19 20:43 23:00 03:00 06:32 Temp 98.0 98.1 98.0 98.1 Pulse 73 68 Resp 18 18 B/P (MAP) 87/47 (60) 92/45 (61) Pulse Ox 92 92 O2 Delivery Room Air Room Air Room Air Room Air 06/25/19 06/25/19 06/25/19 06/25/19 07:15 07:24 07:26 11:08 Temp 97.5 97.7 97.5 97.7 Pulse 66 69 Resp 20 18 B/P (MAP) 111/57 (75) 95/49 (64) Pulse Ox 95 92 96 O2 Delivery Room Air Room Air Room Air Room Air Intake and Output 06/24/19 06/24/19 06/25/19 15:00 23:00 07:00 Intake Total 350 ml 0 ml Balance 350 ml 0 ml DEVI WOLF MD Jun 25, 2019 12:29
--- NOTE | 2019-06-25 12:31 | DISCH ---
DISCHARGE INSTRUCTIONS Condition on Discharge Condition on Discharge: Stable Activity After Discharge Activity Instructions for Disc: Other, see below (no lifting over 20 lbs) Driving Instructions after Dis: Other, see below (no driving while taking pain meds) Diet after Discharge Diet after Discharge: Regular Wound Incision Care Wound/Incision Care: Other, see below Other wound/incision instructi: may remove bandange Follow-Up Follow up with: Dr. Sin in 1-2 weeks [phone] Follow Up With: Primary Care Physician within 1 week. DEVI WOLF MD Jun 25, 2019 12:31
--- NOTE | 2019-06-25 12:40 | NUR ---
Discharge Note: ROMELIA MONTIEL Discharge instructions and discharge home medications reviewed with Patient and spouse and a copy given. All questions have been answered and understanding verbalized. The following instructions and handouts were given: surgical incision care, medications, follow up appointments, colon resection after care, etc. Discontinued lines and drains: IV line in hand removed, catheter tip intact. Patient discharged to home with self care with , wheelchair used for mobility to discharge vehicle.
== END 2019-06-25 12:40 | disposition home or self-care (01) | DRG 330 ==
LOC: OPSVCIP 05:38 → 4 NORTH 11:09
PROVIDERS: ADMIT Surgery; ATTEND Surgery
PROC: 0DTN0ZZ Resection of Sigmoid Colon, Open Approach (ICD-10-PCS; principal; 2019-06-21 07:30)
DX: C20 Malignant neoplasm of rectum (principal); C18.9 Malignant neoplasm of colon, unspecified; Z79.899 Other long term (current) drug therapy; J45.909 Unspecified asthma, uncomplicated; Z88.8 Allergy status to other drugs, medicaments and biological substances
CPT/HCPCS: 36415; 81025; 82565; 85014; 85018; 85025; A7015; C1769; J0690; J1100; J1170; J1650; J1885; J2250; J2270; J2405; J2704; J2710; J3010; J3490; J7120; G0378

== ENCOUNTER → 2019-07-07 | Outpatient (CLI) | payer OTHER ==
[2019-06-25 11:08] VITALS: BP 95/49
[~2019-07-07] MED LIST changes: +ONDA4TAB7 PO; +PANT40TA77 PO
[2019-07-07 15:02] LABS: BASO % 1 % (0-3); EOS % 0 % (0-3); HEMATOCRIT 41.6 % (36.0-47.0); HEMOGLOBIN 14.5 g/dL (12.0-15.5); LYMPH # 0.6 x10^3/uL (1.0-4.8); LYMPH % 12 % (24-48); MEAN CORPUSCULAR HEMOGLOBIN 33 pg (25-35); MEAN CORPUSCULAR HGB CONC 35 g/dL (31-37); MEAN CORPUSCULAR VOLUME 94 fL (79-100); MONO # 0.2 x10^3/uL (0.0-1.1); MONO % 4 % (0-9); NEUT # 4.5 x10^3/uL (1.8-7.7); NEUT % 84 % (31-73); PLATELET COUNT 360 x10^3/uL (140-400); RED BLOOD COUNT 4.41 x10^6/uL (3.50-5.40); RED CELL DISTRIBUTION WIDTH 12.3 % (11.5-14.5); WHITE BLOOD COUNT 5.4 x10^3/uL (4.0-11.0)
[2019-07-07 15:25] LABS: CALCIUM 9.2 mg/dL (8.5-10.1); CREATININE 0.9 mg/dL (0.6-1.0); GFR 68.7
== END ==
LOC: LAB 14:07
PROVIDERS: ATTEND Surgery
DX: Z09 Encounter for follow-up examination after completed treatment for conditions other than malignant neoplasm (principal); J45.909 Unspecified asthma, uncomplicated; K21.9 Gastro-esophageal reflux disease without esophagitis; Z87.891 Personal history of nicotine dependence
CPT/HCPCS: 36415; 80048; 85025

== ENCOUNTER 2019-07-09 05:48 | Inpatient (IN) | payer OTHER ==
[~2019-07-09] VITALS: Ht 172.7 cm; Wt 61.7 kg
[~2019-07-09 05:48] MED LIST changes: -ONDA4TAB7 PO; -PANT40TA77 PO
[2019-07-09] MEDS ORDERED: ONDANSETRON PF 4 MG/2 ML VIAL. IV ONE (06:15)
[2019-07-09] MEDS ORDERED: IV NORMAL SALINE 1000ML BAG 1,000 ML IV SCH (06:15)
--- NOTE | 2019-07-09 06:15 | PHYS DOC ---
Past Medical History Past Medical History: Asthma Past Surgical History: No Surgical History Alcohol Use: Heavy Drug Use: None Adult General Chief Complaint Chief Complaint: NAUSEA/VOMITING/DIARRHA HPI HPI Patient is a 44-year-old female who presents with complaint of nausea and vomiting. 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 Patient states that initially her postop course it been going well but then she started developing vomiting over the last few days. She last saw Dr. Sin on Friday and he had prescribed a PPI for what he felt was reflux. Patient states it hasn't been helping and she had taken some Zofran that she states really has not helped her to keep anything down. She denies any abdominal pain associated with vomiting.[] Review of Systems Review of Systems Constitutional: Denies fever or chills [] Respiratory: Denies cough or shortness of breath [] Cardiovascular: No additional information not addressed in HPI [] GI: Denies abdominal pain. Complains of nausea and vomiting without diarrhea [] Integument: Denies rash or skin lesions [] Neurologic: Denies headache, focal weakness or sensory changes [] All other systems were reviewed and found to be within normal limits, except as documented in this note. Current Medications Current Medications Current Medications Medications (Trade) Dose Ordered Sig/Alysia Start Time Stop Time Status Last Admin Dose Admin Diphenhydramine HCl (Benadryl) 25 mg 1X ONCE 07/09/19 08:30 07/09/19 08:31 DC 07/09/19 08:33 25 MG Info (CONTRAST GIVEN -- Rx MONITORING) 1 each PRN DAILY PRN 07/09/19 07:30 07/11/19 07:29 Iohexol (Omnipaque 240 Mg/ml) 30 ml 1X ONCE 07/09/19 07:30 07/09/19 07:31 DC 07/09/19 08:20 30 ML Iohexol (Omnipaque 300 Mg/ml) 75 ml 1X ONCE 07/09/19 07:30 07/09/19 07:31 DC 07/09/19 08:20 75 ML Metoclopramide HCl (Reglan Vial) 10 mg 1X ONCE 07/09/19 08:30 07/09/19 08:31 DC 07/09/19 08:34 10 MG Ondansetron HCl (Zofran) 4 mg 1X ONCE 07/09/19 06:15 07/09/19 06:16 DC 07/09/19 06:18 4 MG Sodium Chloride 1,000 ml @ 1,000 mls/hr Q1H 07/09/19 06:15 07/09/19 07:14 DC 07/09/19 06:18 1,000 MLS/HR Allergies Allergies Allergies Coded Allergies Type Severity Reaction Last Updated Verified amoxicillin Adverse Reaction Intermediate Nausea and Vomiting 06/21/19 Yes clavulanic acid Adverse Reaction Intermediate Nausea and Vomiting 06/21/19 Yes erythromycin base Adverse Reaction Intermediate Nausea and Vomiting 06/21/19 Yes Physical Exam Physical Exam Constitutional: Well developed, well nourished, no acute distress, non-toxic appearance. [] HENT: Normocephalic, atraumatic, bilateral external ears normal, oropharynx ja st, no oral exudates, nose normal. [] Eyes: PERRLA, EOMI, conjunctiva normal, no discharge. [] Neck: Normal range of motion, no tenderness, supple, no stridor. [] Cardiovascular: Regular rate and rhythm[] Lungs & Thorax: Bilateral breath sounds clear to auscultation [] Abdomen: Bowel sounds normal, soft, with mild epigastric tenderness. [] Skin: Warm, dry, no erythema, no rash. [] Extremities: No tenderness, no cyanosis, no clubbing, ROM intact, no edema. [] Neurologic: Alert and oriented X 3, no focal deficits noted. [] Current Patient Data Vital Signs Vital Signs Date Time Temp Pulse Resp B/P (MAP) Pulse Ox O2 Delivery O2 Flow Rate FiO2 07/09/19 07:00 54 18 125/96 (106) 98 Room Air 07/09/19 05:55 98.2 98.2 Lab Values Laboratory Tests Test 07/09/19 06:02 07/09/19 07:24 White Blood Count 6.4 x10^3/uL (4.0-11.0) Red Blood Count 4.44 x10^6/uL (3.50-5.40) Hemoglobin 14.4 g/dL (12.0-15.5) Hematocrit 41.6 % (36.0-47.0) Mean Corpuscular Volume 94 fL (79-100) Mean Corpuscular Hemoglobin 33 pg (25-35) Mean Corpuscular Hemoglobin Concent 35 g/dL (31-37) Red Cell Distribution Width 11.8 % (11.5-14.5) Platelet Count 355 x10^3/uL (140-400) Neutrophils (%) (Auto) 83 % (31-73) H Lymphocytes (%) (Auto) 12 % (24-48) L Monocytes (%) (Auto) 5 % (0-9) Eosinophils (%) (Auto) 0 % (0-3) Basophils (%) (Auto) 0 % (0-3) Neutrophils # (Auto) 5.3 x10^3/uL (1.8-7.7) Lymphocytes # (Auto) 0.8 x10^3/uL (1.0-4.8) L Monocytes # (Auto) 0.3 x10^3/uL (0.0-1.1) Eosinophils # (Auto) 0.0 x10^3/uL (0.0-0.7) Basophils # (Auto) 0.0 x10^3/uL (0.0-0.2) Sodium Level 136 mmol/L (136-145) Potassium Level 3.3 mmol/L (3.5-5.1) L Chloride Level 98 mmol/L (98-107) Carbon Dioxide Level 28 mmol/L (21-32) Anion Gap 10 (6-14) Blood Urea Nitrogen 10 mg/dL (7-20) Creatinine 1.0 mg/dL (0.6-1.0) Estimated GFR (Cockcroft-Gault) 60.8 BUN/Creatinine Ratio 10 (6-20) Glucose Level 120 mg/dL (70-99) H Calcium Level 9.2 mg/dL (8.5-10.1) Total Bilirubin 0.9 mg/dL (0.2-1.0) Aspartate Amino Transferase (AST) 10 U/L (15-37) L Alanine Aminotransferase (ALT) 14 U/L (14-59) Alkaline Phosphatase 50 U/L (46-116) Total Protein 7.9 g/dL (6.4-8.2) Albumin 4.5 g/dL (3.4-5.0) Albumin/Globulin Ratio 1.3 (1.0-1.7) Lipase 100 U/L (73-393) Urine Collection Type Unknown Urine Color Donna Urine Clarity Clear Urine pH 5.5 Urine Specific [place] >=1.030 Urine Protein 30 mg/dL (NEG-TRACE) Urine Glucose (UA) Negative mg/dL (NEG) Urine Ketones (Stick) >=80 mg/dL (NEG) Urine Blood Large (NEG) Urine Nitrite Negative (NEG) Urine Bilirubin Small (NEG) Urine Urobilinogen Dipstick 1.0 mg/dL (0.2 mg/dL) Urine Leukocyte Esterase Negative (NEG) Urine RBC 0 /HPF (0-2) Urine WBC 1-4 /HPF (0-4) Urine Squamous Epithelial Cells Mod /LPF Urine Bacteria 0 /HPF (0-FEW) Urine Mucus Marked /LPF Laboratory Tests 07/09/19 06:02 Laboratory Tests 07/09/19 06:02 EKG EKG [] Radiology/Procedures Radiology/Procedures [] Impressions: PROCEDURE: CT ABD PELV W/ORAL&IV CONTRAST Examination: CT ABD PELV W/ORAL IV CONTRAST History: Postoperative vomiting, colon resection 2 weeks ago Comparison/Correlation: 04/19/2019 CT abdomen and pelvis with contrast Findings: Axial images of the abdomen and pelvis were obtained following IV and oral contrast. Sagittal and coronal reformatted images were provided. Small hiatal hernia is present. Liver is unremarkable. Spleen is normal. Pancreas is normal. Pelvis unremarkable. Kidneys are normal. Moderate quantity of stool is present throughout the colon. No extraluminal gas or bowel obstruction. Urinary bladder is unremarkable. Radiopaque densities are noted along the distribution of the fallopian tubes bilaterally corresponding to reported history of tubal ligation. Scarring of the abdominal wall infraumbilical region noted. Small umbilical hernia containing omental fat. Small amount of fluid in the presacral region is present. Suture material is identified involving the rectum. Diverticulosis of the colon is present. There is no bowel obstruction. Contrast is noted throughout small bowel. No inflammatory findings about the cecum identified. Minimal retrolisthesis of L4 in relation L5 is present. Mild disc space narrowing at this level with vacuum phenomenon. Impression: Small umbilical hernia containing omental fat. Small amount of fluid in the presacral region noted. No bowel obstruction or suspicious inflammatory findings. PQRS Compliance Statement: One or more of the following individualized dose reduction techniques were utilized for this examination: 1. Automated exposure control 2. Adjustment of the mA and/or kV according to patient size 3. Use of iterative reconstruction technique Electronically signed by: Justino Wallis MD (07/09/2019 8:46 AM) [facility] DICTATED and SIGNED BY: JUSTINO WALLIS MD DATE: 07/09/19 0846 Course & Med Decision Making Course & Med Decision Making Pertinent Labs and Imaging studies reviewed. (See chart for details) [] Dragon Disclaimer Dragon Disclaimer This electronic medical record was generated, in whole or in part, using a voice recognition dictation system. Departure Departure Referrals: LATESHA CARDONA MD (PCP) AVILA VILA Jr. DO Jul 09, 2019 06:15
[2019-07-09 06:42] LABS: BASO % 0 % (0-3); EOS % 0 % (0-3); HEMATOCRIT 41.6 % (36.0-47.0); HEMOGLOBIN 14.4 g/dL (12.0-15.5); LYMPH # 0.8 x10^3/uL (1.0-4.8); LYMPH % 12 % (24-48); MEAN CORPUSCULAR HEMOGLOBIN 33 pg (25-35); MEAN CORPUSCULAR HGB CONC 35 g/dL (31-37); MEAN CORPUSCULAR VOLUME 94 fL (79-100); MONO # 0.3 x10^3/uL (0.0-1.1); MONO % 5 % (0-9); NEUT # 5.3 x10^3/uL (1.8-7.7); NEUT % 83 % (31-73); PLATELET COUNT 355 x10^3/uL (140-400); RED BLOOD COUNT 4.44 x10^6/uL (3.50-5.40); RED CELL DISTRIBUTION WIDTH 11.8 % (11.5-14.5); WHITE BLOOD COUNT 6.4 x10^3/uL (4.0-11.0)
[2019-07-09 06:49] LABS: CALCIUM 9.2 mg/dL (8.5-10.1); GFR 60.8; POTASSIUM 3.3 mmol/L (3.5-5.1)
[2019-07-09 06:55] LABS: ALBUMIN 4.5 g/dL (3.4-5.0); ALBUMIN/GLOBULIN RATIO 1.3 (1.0-1.7); TOTAL BILIRUBIN 0.9 mg/dL (0.2-1.0); TOTAL PROTEIN 7.9 g/dL (6.4-8.2)
[2019-07-09] MEDS ORDERED: CONTRAST GIVEN. MC PRN (07:30)
[2019-07-09] MEDS ORDERED: IOHEXOL 300 MG/ML 100ML VIAL. IV ONE (07:30)
[2019-07-09] MEDS ORDERED: IOHEXOL 240 MG/ML 50ML VIAL. PO ONE (07:30)
[2019-07-09 07:42] LABS: BILIRUBIN,URINE SMALL (NEG); CLARITY,URINE CLEAR; COLOR,URINE AMBER; NITRITE,URINE NEGATIVE (NEG); PH,URINE 5.5; PROTEIN,URINE 30 mg/dL (NEG-TRACE)
[2019-07-09 08:08] LABS: BACTERIA,URINE 0 /HPF (0-FEW); RBC,URINE 0 /HPF (0-2); SQUAMOUS EPITHELIAL CELL,UR MOD /LPF
[2019-07-09] MEDS ORDERED: METOCLOPRAMIDE HCL 10 MG/2 ML VIAL. IVP ONE (08:30)
[2019-07-09] MEDS ORDERED: diphenhydrAMINE 50 MG/ML VIAL IVP ONE (08:30)
--- NOTE | 2019-07-09 08:49 | RAD ---
Examination: CT ABD PELV W/ORAL IV CONTRAST History: Postoperative vomiting, colon resection 2 weeks ago Comparison/Correlation: 04/19/2019 CT abdomen and pelvis with contrast Findings: Axial images of the abdomen and pelvis were obtained following IV and oral contrast. Sagittal and coronal reformatted images were provided. Small hiatal hernia is present. Liver is unremarkable. Spleen is normal. Pancreas is normal. Pelvis unremarkable. Kidneys are normal. Moderate quantity of stool is present throughout the colon. No extraluminal gas or bowel obstruction. Urinary bladder is unremarkable. Radiopaque densities are noted along the distribution of the fallopian tubes bilaterally corresponding to reported history of tubal ligation. Scarring of the abdominal wall infraumbilical region noted. Small umbilical hernia containing omental fat. Small amount of fluid in the presacral region is present. Suture material is identified involving the rectum. Diverticulosis of the colon is present. There is no bowel obstruction. Contrast is noted throughout small bowel. No inflammatory findings about the cecum identified. Minimal retrolisthesis of L4 in relation L5 is present. Mild disc space narrowing at this level with vacuum phenomenon. Impression: Small umbilical hernia containing omental fat. Small amount of fluid in the presacral region noted. No bowel obstruction or suspicious inflammatory findings. PQRS Compliance Statement: One or more of the following individualized dose reduction techniques were utilized for this examination: 1. Automated exposure control 2. Adjustment of the mA and/or kV according to patient size 3. Use of iterative reconstruction technique Electronically signed by: Justino Acosta MD (07/09/2019 8:46 AM) [facility]
[2019-07-09] MEDS ORDERED: ONDANSETRON PF 4 MG/2 ML VIAL. IV PRN (09:30)
[2019-07-09 10:30] VITALS: BP 127/73
--- NOTE | 2019-07-09 11:12 | PDOC1 ---
History and Physical Date of Admission Date of Admission DATE: 07/09/19 TIME: 11:12 Identification/Chief Complaint Chief Complaint SEEN IN ER , 44 YR OLD wf with partial colectomy that was performed by Dr. 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 Patient states that initially her postop course it been going well but then she started developing vomiting over the last few days. She last saw Dr. Sin on Friday and he had prescribed a PPI for what he felt was reflux. states ppi hasn't been helping and she had taken some Zofran that she states really has not helped her to keep anything down. She denies any abdominal pain associated with vomiting.[] iv reglan helped in ER Past Medical History Heme/Onc: Cancer Infectious disease: No pertinent hx Renal/: No pertinent hx Family History Family History: High Cholestrol Social History Smoke: No ALCOHOL: none Drugs: None Current Medications Current Medications Current Medications Sodium Chloride 1,000 ml @ 1,000 mls/hr Q1H IV Last administered on 07/09/19at 06:18; Start 07/09/19 at 06:15; Stop 07/09/19 at 07:14; Status DC Ondansetron HCl (Zofran) 4 mg 1X ONCE IV Last administered on 07/09/19at 06:18; Start 07/09/19 at 06:15; Stop 07/09/19 at 06:16; Status DC Iohexol (Omnipaque 240 Mg/ml) 30 ml 1X ONCE PO Last administered on 07/09/19at 08:20; Start 07/09/19 at 07:30; Stop 07/09/19 at 07:31; Status DC Iohexol (Omnipaque 300 Mg/ml) 75 ml 1X ONCE IV Last administered on 07/09/19at 08:20; Start 07/09/19 at 07:30; Stop 07/09/19 at 07:31; Status DC Info (CONTRAST GIVEN -- Rx MONITORING) 1 each PRN DAILY PRN MC SEE COMMENTS; Start 07/09/19 at 07:30; Stop 07/11/19 at 07:29 Metoclopramide HCl (Reglan Vial) 10 mg 1X ONCE IVP Last administered on 07/09/19at 08:34; Start 07/09/19 at 08:30; Stop 07/09/19 at 08:31; Status DC Diphenhydramine HCl (Benadryl) 25 mg 1X ONCE IVP Last administered on 07/09/19at 08:33; Start 07/09/19 at 08:30; Stop 07/09/19 at 08:31; Status DC Ondansetron HCl (Zofran) 4 mg PRN Q8HRS PRN IV NAUSEA/VOMITING; Start 07/09/19 at 09:30; Stop 07/10/19 at 09:29 Sodium Chloride 1,000 ml @ 125 mls/hr Q8H IV ; Start 07/09/19 at 09:29; Stop 07/10/19 at 09:28 Active Scripts Active Reported Flonase Allergy Relief (Fluticasone Propionate) 9.9 Ml [place].susp 1 Sprays NS DAILY Proair Hfa (Albuterol Sulfate) 8.5 Gm Hfa.aer.ad 1 Puff INH PRN Q6HRS PRN Zyrtec (Cetirizine Hcl) 10 Mg Tablet 10 Mg PO DAILY Symbicort 160-4.5 Mcg Inhaler (Budesonide/Formoterol Fumarate) 10.2 Gm Hfa.aer.ad 1 Puff IH DAILY Allergies Allergies: Coded Allergies: amoxicillin (Verified Adverse Reaction, Intermediate, Nausea and Vomiting, 06/21/19) clavulanic acid (Verified Adverse Reaction, Intermediate, Nausea and Vomiting, 06/21/19) erythromycin base (Verified Adverse Reaction, Intermediate, Nausea and Vomiting, 06/21/19) ROS Review of System Review of Systems Review of Systems Constitutional: Denies fever or chills [] Respiratory: Denies cough or shortness of breath [] Cardiovascular: No additional information not addressed in HPI [] GI: Denies abdominal pain. Complains of nausea and vomiting without diarrhea [] Integument: Denies rash or skin lesions [] Neurologic: Denies headache, focal weakness or sensory changes [] 14 PT systems were reviewed and found to be within normal limits, except as documented Respiratory: No: Cough, Hemoptysis, Orthopnea, Pleuritic Pain, Shortness of breath, SOB with excertion, Sputum Changes, Stridor, Tachypnea, Wheezing, Other Gastrointestinal: Yes Nausea, Yes Vomiting Genitourinary: No Dysuria, No Frequency, No Incontinence, No Hematuria, No Retention, No Discharge, No Urgency, No Pain, No Flank Pain, No Other, No , No , No , No , No , No , No Musculoskeletal: No Gait Disturbance, No Joint Pain, No Joint Stiffness, No Joint Swelling, No Muscle Pain, No Muscular Weakness, No Pain In:, No Swelling In:, No Other Skin: No Dry Skin, No Eczema, No Hair Changes, No Lumps, No Mole Changes, No Mottling, No Nail Changes, No Pruritus, No Rash, No Skin Lesion Changes, No Other, No Acne Physical Exam Physical Exam Physical Exam Physical Exam Constitutional: Well developed, well nourished, no acute distress, non-toxic appearance. [] HENT: Normocephalic, atraumatic, bilateral external ears normal, oropharynx mo ist, no oral exudates, nose normal. [] Eyes: PERRLA, EOMI, conjunctiva normal, no discharge. [] Neck: Normal range of motion, no tenderness, supple, no stridor. [] Cardiovascular: Regular rate and rhythm[] Lungs & Thorax: Bilateral breath sounds clear to auscultation [] Abdomen: Bowel sounds normal, soft, with mild epigastric tenderness. [] Skin: Warm, dry, no erythema, no rash. [] Extremities: No tenderness, no cyanosis, no clubbing, ROM intact, no edema. [] Neurologic: Alert and oriented X 3, no focal deficits noted. [] General: Alert, Oriented X3, Cooperative, No acute distress HEENT: EOMI Lungs: Clear to auscultation, Normal air movement Heart: RRR Breasts: Not examined Abdomen: Normal bowel sounds, Soft, Other (INCISION DRY, INTACT) Rectal Exam: not examined Extremities: No cyanosis, No edema Neuro: Normal speech, Cranial nerves 3-12 NL Psych/Mental Status: Mental status NL, Mood NL Vitals Vitals Vital Signs Date Time Temp Pulse Resp B/P (MAP) Pulse Ox O2 Delivery O2 Flow Rate FiO2 07/09/19 09:54 124/73 (90) 07/09/19 08:00 52 18 100 Room Air 07/09/19 05:55 98.2 98.2 Labs Labs Laboratory Tests Test 07/09/19 06:02 07/09/19 07:24 White Blood Count 6.4 x10^3/uL (4.0-11.0) Red Blood Count 4.44 x10^6/uL (3.50-5.40) Hemoglobin 14.4 g/dL (12.0-15.5) Hematocrit 41.6 % (36.0-47.0) Mean Corpuscular Volume 94 fL (79-100) Mean Corpuscular Hemoglobin 33 pg (25-35) Mean Corpuscular Hemoglobin Concent 35 g/dL (31-37) Red Cell Distribution Width 11.8 % (11.5-14.5) Platelet Count 355 x10^3/uL (140-400) Neutrophils (%) (Auto) 83 % (31-73) Lymphocytes (%) (Auto) 12 % (24-48) Monocytes (%) (Auto) 5 % (0-9) Eosinophils (%) (Auto) 0 % (0-3) Basophils (%) (Auto) 0 % (0-3) Neutrophils # (Auto) 5.3 x10^3/uL (1.8-7.7) Lymphocytes # (Auto) 0.8 x10^3/uL (1.0-4.8) Monocytes # (Auto) 0.3 x10^3/uL (0.0-1.1) Eosinophils # (Auto) 0.0 x10^3/uL (0.0-0.7) Basophils # (Auto) 0.0 x10^3/uL (0.0-0.2) Sodium Level 136 mmol/L (136-145) Potassium Level 3.3 mmol/L (3.5-5.1) Chloride Level 98 mmol/L (98-107) Carbon Dioxide Level 28 mmol/L (21-32) Anion Gap 10 (6-14) Blood Urea Nitrogen 10 mg/dL (7-20) Creatinine 1.0 mg/dL (0.6-1.0) Estimated GFR (Cockcroft-Gault) 60.8 BUN/Creatinine Ratio 10 (6-20) Glucose Level 120 mg/dL (70-99) Calcium Level 9.2 mg/dL (8.5-10.1) Total Bilirubin 0.9 mg/dL (0.2-1.0) Aspartate Amino Transf (AST/SGOT) 10 U/L (15-37) Alanine Aminotransferase (ALT/SGPT) 14 U/L (14-59) Alkaline Phosphatase 50 U/L (46-116) Total Protein 7.9 g/dL (6.4-8.2) Albumin 4.5 g/dL (3.4-5.0) Albumin/Globulin Ratio 1.3 (1.0-1.7) Lipase 100 U/L (73-393) Urine Collection Type Unknown Urine Color Donna Urine Clarity Clear Urine pH 5.5 Urine Specific [place] >=1.030 Urine Protein 30 mg/dL (NEG-TRACE) Urine Glucose (UA) Negative mg/dL (NEG) Urine Ketones (Stick) >=80 mg/dL (NEG) Urine Blood Large (NEG) Urine Nitrite Negative (NEG) Urine Bilirubin Small (NEG) Urine Urobilinogen Dipstick 1.0 mg/dL (0.2 mg/dL) Urine Leukocyte Esterase Negative (NEG) Urine RBC 0 /HPF (0-2) Urine WBC 1-4 /HPF (0-4) Urine Squamous Epithelial Cells Mod /LPF Urine Bacteria 0 /HPF (0-FEW) Urine Mucus Marked /LPF Laboratory Tests Test 07/09/19 06:02 07/09/19 07:24 White Blood Count 6.4 x10^3/uL (4.0-11.0) Red Blood Count 4.44 x10^6/uL (3.50-5.40) Hemoglobin 14.4 g/dL (12.0-15.5) Hematocrit 41.6 % (36.0-47.0) Mean Corpuscular Volume 94 fL (79-100) Mean Corpuscular Hemoglobin 33 pg (25-35) Mean Corpuscular Hemoglobin Concent 35 g/dL (31-37) Red Cell Distribution Width 11.8 % (11.5-14.5) Platelet Count 355 x10^3/uL (140-400) Neutrophils (%) (Auto) 83 % (31-73) Lymphocytes (%) (Auto) 12 % (24-48) Monocytes (%) (Auto) 5 % (0-9) Eosinophils (%) (Auto) 0 % (0-3) Basophils (%) (Auto) 0 % (0-3) Neutrophils # (Auto) 5.3 x10^3/uL (1.8-7.7) Lymphocytes # (Auto) 0.8 x10^3/uL (1.0-4.8) Monocytes # (Auto) 0.3 x10^3/uL (0.0-1.1) Eosinophils # (Auto) 0.0 x10^3/uL (0.0-0.7) Basophils # (Auto) 0.0 x10^3/uL (0.0-0.2) Sodium Level 136 mmol/L (136-145) Potassium Level 3.3 mmol/L (3.5-5.1) Chloride Level 98 mmol/L (98-107) Carbon Dioxide Level 28 mmol/L (21-32) Anion Gap 10 (6-14) Blood Urea Nitrogen 10 mg/dL (7-20) Creatinine 1.0 mg/dL (0.6-1.0) Estimated GFR (Cockcroft-Gault) 60.8 BUN/Creatinine Ratio 10 (6-20) Glucose Level 120 mg/dL (70-99) Calcium Level 9.2 mg/dL (8.5-10.1) Total Bilirubin 0.9 mg/dL (0.2-1.0) Aspartate Amino Transf (AST/SGOT) 10 U/L (15-37) Alanine Aminotransferase (ALT/SGPT) 14 U/L (14-59) Alkaline Phosphatase 50 U/L (46-116) Total Protein 7.9 g/dL (6.4-8.2) Albumin 4.5 g/dL (3.4-5.0) Albumin/Globulin Ratio 1.3 (1.0-1.7) Lipase 100 U/L (73-393) Urine Collection Type Unknown Urine Color Donna Urine Clarity Clear Urine pH 5.5 Urine Specific [place] >=1.030 Urine Protein 30 mg/dL (NEG-TRACE) Urine Glucose (UA) Negative mg/dL (NEG) Urine Ketones (Stick) >=80 mg/dL (NEG) Urine Blood Large (NEG) Urine Nitrite Negative (NEG) Urine Bilirubin Small (NEG) Urine Urobilinogen Dipstick 1.0 mg/dL (0.2 mg/dL) Urine Leukocyte Esterase Negative (NEG) Urine RBC 0 /HPF (0-2) Urine WBC 1-4 /HPF (0-4) Urine Squamous Epithelial Cells Mod /LPF Urine Bacteria 0 /HPF (0-FEW) Urine Mucus Marked /LPF Images Images PATIENT: ROMELIA MONTIEL LACCOUNT: [id number] : 1975 LOCATION: ER AGE: 44 SEX: F EXAM STATUS: REG ER ORD. PHYSICIAN: AVILA VILA Jr. DO REASON: postop vomiting, COLO RESECTION [id number] AGO PROCEDURE: CT ABD PELV W/ORAL&IV CONTRAST Examination: CT ABD PELV W/ORAL IV CONTRAST History: Postoperative vomiting, colon resection 2 weeks ago Comparison/Correlation: 04/19/2019 CT abdomen and pelvis with contrast Findings: Axial images of the abdomen and pelvis were obtained following IV and oral contrast. Sagittal and coronal reformatted images were provided. Small hiatal hernia is present. Liver is unremarkable. Spleen is normal. Pancreas is normal. Pelvis unremarkable. Kidneys are normal. Moderate quantity of stool is present throughout the colon. No extraluminal gas or bowel obstruction. Urinary bladder is unremarkable. Radiopaque densities are noted along the distribution of the fallopian tubes bilaterally corresponding to reported history of tubal ligation. Scarring of the abdominal wall infraumbilical region noted. Small umbilical hernia containing omental fat. Small amount of fluid in the presacral region is present. Suture material is identified involving the rectum. Diverticulosis of the colon is present. There is no bowel obstruction. Contrast is noted throughout small bowel. No inflammatory findings about the cecum identified. Minimal retrolisthesis of L4 in relation L5 is present. Mild disc space narrowing at this level with vacuum phenomenon. Impression: Small umbilical hernia containing omental fat. Small amount of fluid in the presacral region noted. No bowel obstruction or suspicious inflammatory findings. PQRS Compliance Statement: One or more of the following individualized dose reduction techniques were utilized for this examination: 1. Automated exposure control 2. Adjustment of the mA and/or kV according to patient size 3. Use of iterative reconstruction technique [facility] Accession Number: [id number] . 01 Material submitted: . PART A: sigmoid colon - SIGMOID COLON PART B: colon - ANASTAMOSIS RINGS . 02 Frozen section diagnosis: . INTRAOPERATIVE CONSULTATION WITH GROSS IMPRESSION (Maximus Chahal MD) . A. 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 . . The results are displayed to Dr. Sin in the pathology area. The specimen is fixed in formalin prior to additional sectioning. (JPM:michael; 06/21/2019) . 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 Small amount of fluid in the presacral region noted. ON CT 07/09No bowel obstruction or suspicious inflammatory findings. hypokalemia PLAN ADMIT IV FLUID SUPPORT IV ANTIEMETICS CONSULT DR SIN CONSULT GI replace lytes dvt prophylaxis iv protonix ANDRES IRVIN MD Jul 09, 2019 11:12
[2019-07-09] MEDS ORDERED: PROCHLORPERAZINE 10 MG/2 ML VIAL. IV ONE (13:30)
[2019-07-09] MEDS: IV NORMAL SALINE 1000ML BAG 1,000 ML IV SCH ×4 (13:37→22:57)
[2019-07-09] MEDS: METOCLOPRAMIDE HCL 10 MG/2 ML VIAL. IVP PRN ×2 (13:37→19:40)
[2019-07-09] MEDS ORDERED: DOCUSATE SODIUM 100 MG CAPSULE. PO PRN (14:00)
[2019-07-09] MEDS ORDERED: cloNIDine HCL 0.1 MG TABLET PO PRN (14:00)
[2019-07-09] MEDS ORDERED: ALBUTEROL SULFATE 2.5 MG/3 ML NEBU. NEB PRN (14:00)
[2019-07-09] MEDS ORDERED: ACETAMINOPHEN 325 MG TABLET. PO PRN (14:00)
[2019-07-09] MEDS ORDERED: 0.9 % SODIUM CHLORIDE 10 ML DISP.SYRIN. IV PRN (14:00)
[2019-07-09] MEDS ORDERED: guaiFENesin ORAL 200 MG/10 ML LIQUID. PO PRN (14:00)
[2019-07-09] MEDS ORDERED: LORazepam 0.5 MG TABLET PO PRN (14:00)
[2019-07-09] MEDS ORDERED: POTASSIUM CHL 20MEQ PREMIX 50 ML IV SCH (14:15)
[2019-07-09] MEDS: PANTOPRAZOLE IV PUSH 40 MG VIAL. IVP SCH (14:33)
[2019-07-09] MEDS: POTASSIUM CHLORIDE 10MEQ 100 ML IV SCH ×4 (14:33→17:35)
[2019-07-09 15:00] VITALS: BP 113/70
[2019-07-09] MEDS: PROCHLORPERAZINE 10 MG/2 ML VIAL. IV PRN ×2 (16:48→22:57)
--- NOTE | 2019-07-09 17:03 | PDOC2 ---
CONSULT Date of Consult Date of Consult DATE: 07/09/19 TIME: 17:00 Reason for Consult Reason for Consult: N/V s/p colon cancer resection Past Medical History Heme/Onc: Cancer Infectious disease: No pertinent hx Renal/: No pertinent hx Family History Family History: High Cholestrol Social History No ALCOHOL: none Drugs: None Current Problem List Problem List Problems Medical Problems: (1) Intractable nausea and vomiting Status: Acute Current Medications Current Medications Current Medications Sodium Chloride 1,000 ml @ 1,000 mls/hr Q1H IV Last administered on 07/09/19at 06:18; Start 07/09/19 at 06:15; Stop 07/09/19 at 07:14; Status DC Ondansetron HCl (Zofran) 4 mg 1X ONCE IV Last administered on 07/09/19at 06:18; Start 07/09/19 at 06:15; Stop 07/09/19 at 06:16; Status DC Iohexol (Omnipaque 240 Mg/ml) 30 ml 1X ONCE PO Last administered on 07/09/19at 08:20; Start 07/09/19 at 07:30; Stop 07/09/19 at 07:31; Status DC Iohexol (Omnipaque 300 Mg/ml) 75 ml 1X ONCE IV Last administered on 07/09/19at 08:20; Start 07/09/19 at 07:30; Stop 07/09/19 at 07:31; Status DC Info (CONTRAST GIVEN -- Rx MONITORING) 1 each PRN DAILY PRN MC SEE COMMENTS; Start 07/09/19 at 07:30; Stop 07/11/19 at 07:29 Metoclopramide HCl (Reglan Vial) 10 mg 1X ONCE IVP Last administered on 07/09/19at 08:34; Start 07/09/19 at 08:30; Stop 07/09/19 at 08:31; Status DC Diphenhydramine HCl (Benadryl) 25 mg 1X ONCE IVP Last administered on 07/09/19at 08:33; Start 07/09/19 at 08:30; Stop 07/09/19 at 08:31; Status DC Ondansetron HCl (Zofran) 4 mg PRN Q8HRS PRN IV NAUSEA/VOMITING; Start 07/09/19 at 09:30; Stop 07/10/19 at 09:29 Sodium Chloride 1,000 ml @ 125 mls/hr Q8H IV Last administered on 07/09/19at 13:37; Start 07/09/19 at 09:29; Stop 07/10/19 at 09:28 Metoclopramide HCl (Reglan Vial) 10 mg PRN Q6HRS PRN IVP NAUSEA/VOMITING Last administered on 07/09/19at 13:37; Start 07/09/19 at 13:30 Prochlorperazine Edisylate (Compazine) 5 mg PRN Q6HRS ONCE IV ; Start 07/09/19 at 13:30; Stop 07/09/19 at 13:43; Status DC Prochlorperazine Edisylate (Compazine) 5 mg PRN Q6HRS PRN IV NAUSEA/VOMITING Last administered on 07/09/19at 16:48; Start 07/09/19 at 13:45 Sodium Chloride (Normal Saline Flush) 3 ml QSHIFT PRN IV AFTER MEDS AND BLOOD DRAWS; Start 07/09/19 at 14:00 Sodium Chloride 1,000 ml @ 100 mls/hr Q10H IV ; Start 07/09/19 at 13:59 Ondansetron HCl (Zofran) 4 mg PRN Q4HRS PRN IV NAUSEA/VOMITING; Start 07/09/19 at 14:00 Acetaminophen (Tylenol) 650 mg PRN Q4HRS PRN PO TEMP OVER 100.4F OR MILD PAIN; Start 07/09/19 at 14:00 Clonidine HCl (Catapres) 0.1 mg PRN Q6HRS PRN PO SBP>160 OR DBP>90; Start 07/09/19 at 14:00 Docusate Sodium (Colace) 100 mg PRN BID PRN PO HARD STOOLS; Start 07/09/19 at 14:00 Albuterol Sulfate (Ventolin Neb Soln) 2.5 mg PRN Q4HRS PRN NEB SHORTNESS OF BREATH; Start 07/09/19 at 14:00 Guaifenesin (Robitussin) 200 mg PRN Q4HRS PRN PO COUGH; Start 07/09/19 at 14:00 Lorazepam (Ativan) 0.5 mg PRN Q4HRS PRN PO ANXIETY / AGITATION; Start 07/09/19 at 14:00 Enoxaparin Sodium (Lovenox 40mg Syringe) 40 mg DAILY SQ ; Start 07/10/19 at 09:00 Potassium Chloride/Water 50 ml @ 50 mls/hr Q1H IV ; Start 07/09/19 at 14:15; Stop 07/09/19 at 16:14; Status UNV Pantoprazole Sodium (PROTONIX VIAL for IV PUSH) 40 mg DAILYAC IVP Last administered on 07/09/19at 14:33; Start 07/09/19 at 14:15 Potassium Chloride/Water 100 ml @ 100 mls/hr Q1H IV Last administered on 07/09/19at 16:50; Start 07/09/19 at 14:30; Stop 07/09/19 at 18:29 Active Scripts Active Reported Flonase Allergy Relief (Fluticasone Propionate) 9.9 Ml [place].susp 1 Sprays NS DAILY Proair Hfa (Albuterol Sulfate) 8.5 Gm Hfa.aer.ad 1 Puff INH PRN Q6HRS PRN Zyrtec (Cetirizine Hcl) 10 Mg Tablet 10 Mg PO DAILY Symbicort 160-4.5 Mcg Inhaler (Budesonide/Formoterol Fumarate) 10.2 Gm Hfa.aer.ad 1 Puff IH DAILY Allergies Allergies: Coded Allergies: amoxicillin (Verified Adverse Reaction, Intermediate, Nausea and Vomiting, 06/21/19) clavulanic acid (Verified Adverse Reaction, Intermediate, Nausea and Vomiting, 06/21/19) erythromycin base (Verified Adverse Reaction, Intermediate, Nausea and Vomiting, 06/21/19) Vitals VITALS Vital Signs Date Time Temp Pulse Resp B/P (MAP) Pulse Ox O2 Delivery O2 Flow Rate FiO2 07/09/19 15:00 98.4 60 18 113/70 (84) 97 Room Air 98.4 Labs Labs Laboratory Tests Test 07/09/19 06:02 07/09/19 07:24 White Blood Count 6.4 x10^3/uL (4.0-11.0) Red Blood Count 4.44 x10^6/uL (3.50-5.40) Hemoglobin 14.4 g/dL (12.0-15.5) Hematocrit 41.6 % (36.0-47.0) Mean Corpuscular Volume 94 fL (79-100) Mean Corpuscular Hemoglobin 33 pg (25-35) Mean Corpuscular Hemoglobin Concent 35 g/dL (31-37) Red Cell Distribution Width 11.8 % (11.5-14.5) Platelet Count 355 x10^3/uL (140-400) Neutrophils (%) (Auto) 83 % (31-73) Lymphocytes (%) (Auto) 12 % (24-48) Monocytes (%) (Auto) 5 % (0-9) Eosinophils (%) (Auto) 0 % (0-3) Basophils (%) (Auto) 0 % (0-3) Neutrophils # (Auto) 5.3 x10^3/uL (1.8-7.7) Lymphocytes # (Auto) 0.8 x10^3/uL (1.0-4.8) Monocytes # (Auto) 0.3 x10^3/uL (0.0-1.1) Eosinophils # (Auto) 0.0 x10^3/uL (0.0-0.7) Basophils # (Auto) 0.0 x10^3/uL (0.0-0.2) Sodium Level 136 mmol/L (136-145) Potassium Level 3.3 mmol/L (3.5-5.1) Chloride Level 98 mmol/L (98-107) Carbon Dioxide Level 28 mmol/L (21-32) Anion Gap 10 (6-14) Blood Urea Nitrogen 10 mg/dL (7-20) Creatinine 1.0 mg/dL (0.6-1.0) Estimated GFR (Cockcroft-Gault) 60.8 BUN/Creatinine Ratio 10 (6-20) Glucose Level 120 mg/dL (70-99) Calcium Level 9.2 mg/dL (8.5-10.1) Total Bilirubin 0.9 mg/dL (0.2-1.0) Aspartate Amino Transf (AST/SGOT) 10 U/L (15-37) Alanine Aminotransferase (ALT/SGPT) 14 U/L (14-59) Alkaline Phosphatase 50 U/L (46-116) Total Protein 7.9 g/dL (6.4-8.2) Albumin 4.5 g/dL (3.4-5.0) Albumin/Globulin Ratio 1.3 (1.0-1.7) Lipase 100 U/L (73-393) Urine Collection Type Unknown Urine Color Donna Urine Clarity Clear Urine pH 5.5 Urine Specific [place] >=1.030 Urine Protein 30 mg/dL (NEG-TRACE) Urine Glucose (UA) Negative mg/dL (NEG) Urine Ketones (Stick) >=80 mg/dL (NEG) Urine Blood Large (NEG) Urine Nitrite Negative (NEG) Urine Bilirubin Small (NEG) Urine Urobilinogen Dipstick 1.0 mg/dL (0.2 mg/dL) Urine Leukocyte Esterase Negative (NEG) Urine RBC 0 /HPF (0-2) Urine WBC 1-4 /HPF (0-4) Urine Squamous Epithelial Cells Mod /LPF Urine Bacteria 0 /HPF (0-FEW) Urine Mucus Marked /LPF Laboratory Tests Test 07/09/19 06:02 07/09/19 07:24 White Blood Count 6.4 x10^3/uL (4.0-11.0) Red Blood Count 4.44 x10^6/uL (3.50-5.40) Hemoglobin 14.4 g/dL (12.0-15.5) Hematocrit 41.6 % (36.0-47.0) Mean Corpuscular Volume 94 fL (79-100) Mean Corpuscular Hemoglobin 33 pg (25-35) Mean Corpuscular Hemoglobin Concent 35 g/dL (31-37) Red Cell Distribution Width 11.8 % (11.5-14.5) Platelet Count 355 x10^3/uL (140-400) Neutrophils (%) (Auto) 83 % (31-73) Lymphocytes (%) (Auto) 12 % (24-48) Monocytes (%) (Auto) 5 % (0-9) Eosinophils (%) (Auto) 0 % (0-3) Basophils (%) (Auto) 0 % (0-3) Neutrophils # (Auto) 5.3 x10^3/uL (1.8-7.7) Lymphocytes # (Auto) 0.8 x10^3/uL (1.0-4.8) Monocytes # (Auto) 0.3 x10^3/uL (0.0-1.1) Eosinophils # (Auto) 0.0 x10^3/uL (0.0-0.7) Basophils # (Auto) 0.0 x10^3/uL (0.0-0.2) Sodium Level 136 mmol/L (136-145) Potassium Level 3.3 mmol/L (3.5-5.1) Chloride Level 98 mmol/L (98-107) Carbon Dioxide Level 28 mmol/L (21-32) Anion Gap 10 (6-14) Blood Urea Nitrogen 10 mg/dL (7-20) Creatinine 1.0 mg/dL (0.6-1.0) Estimated GFR (Cockcroft-Gault) 60.8 BUN/Creatinine Ratio 10 (6-20) Glucose Level 120 mg/dL (70-99) Calcium Level 9.2 mg/dL (8.5-10.1) Total Bilirubin 0.9 mg/dL (0.2-1.0) Aspartate Amino Transf (AST/SGOT) 10 U/L (15-37) Alanine Aminotransferase (ALT/SGPT) 14 U/L (14-59) Alkaline Phosphatase 50 U/L (46-116) Total Protein 7.9 g/dL (6.4-8.2) Albumin 4.5 g/dL (3.4-5.0) Albumin/Globulin Ratio 1.3 (1.0-1.7) Lipase 100 U/L (73-393) Urine Collection Type Unknown Urine Color Donna Urine Clarity Clear Urine pH 5.5 Urine Specific [place] >=1.030 Urine Protein 30 mg/dL (NEG-TRACE) Urine Glucose (UA) Negative mg/dL (NEG) Urine Ketones (Stick) >=80 mg/dL (NEG) Urine Blood Large (NEG) Urine Nitrite Negative (NEG) Urine Bilirubin Small (NEG) Urine Urobilinogen Dipstick 1.0 mg/dL (0.2 mg/dL) Urine Leukocyte Esterase Negative (NEG) Urine RBC 0 /HPF (0-2) Urine WBC 1-4 /HPF (0-4) Urine Squamous Epithelial Cells Mod /LPF Urine Bacteria 0 /HPF (0-FEW) Urine Mucus Marked /LPF Assessment/Plan Assessment/Plan N/V- s/p colon resection, most likely secondary to obstipation. Hypothyroidism possible as well with bradycardia and family history with her mother. PUD with gastric outlet obstruction less likely.jeannette TFTS ADAT Miralax/amitiza as prokinetic therapy Full note dictated DEVI BURGOS MD Jul 09, 2019 17:03
[2019-07-09] MEDS: LUBIPROSTONE 24 MCG CAPSULE PO SCH (17:35)
[2019-07-09] MEDS: POLYETHYLENE GLYCOL 3350 17 GM PACKET. PO SCH (17:35)
[2019-07-09 19:00] VITALS: BP 124/61
[2019-07-09 23:07] VITALS: BP 123/64
--- NOTE | 2019-07-10 01:46 | CONS ---
DATE OF CONSULTATION: 07/09/2019 GASTROINTESTINAL CONSULTATION REASON FOR CONSULTATION: Nausea, vomiting, status post partial colectomy. HISTORY OF PRESENT ILLNESS: A 44-year-old female whose past medical history is for asthma as well as stage 3 colon cancer, status post resection, became nauseated over the past several days after being released home and actually tolerating p.o. for a period of time. She was started on PPI therapy without significant improvement in her reflux and nausea. She states she has not had a bowel movement in the past 4-[address] scan of the abdomen and pelvis was nonrevealing for obstruction, mass or abscess. Consultations thereby requested. PAST MEDICAL HISTORY: Asthma, history of colon cancer. ALLERGIES: AMOXICILLIN, CLAVULANIC ACID AND ERYTHROMYCIN. MEDICATIONS: Presently include Lovenox, pantoprazole, Ativan, albuterol, clonidine, Reglan and ondansetron. SOCIAL HISTORY: She does not smoke or drink at this time. FAMILY HISTORY: Noncontributory. REVIEW OF SYSTEMS: Per records. PHYSICAL EXAMINATION: VITAL SIGNS: Temperature is 98.4, pulse 60, respirations 18 and blood pressure 113/70. HEENT: Normocephalic, atraumatic head. LUNGS: Clear. CARDIOVASCULAR: Reveals an S1, S2 without S3, S4 or appreciable murmur. ABDOMEN: Reveals a soft abdomen with hypoactive bowel sounds, without appreciable hepatosplenomegaly. Intact surgical incision. No point tenderness. EXTREMITIES: Reveals no cyanosis, clubbing or edema. LABORATORY STUDIES: Sodium 136, potassium 3.3, chloride 90, BUN 10, creatinine 1.0, glucose is 120, calcium is 9.2, total bilirubin 0.9, AST of 10, ALT of 14, alkaline phosphatase of 50, total protein 7.9, amylase 4.5 and lipase is 100. Hemoglobin 14.4, hematocrit 41.5, white count 6.4 and platelet count 355,000. CT scan reveals small umbilical hernia, small amount of fluid in the presacral region. No bowel obstruction or suspicious inflammatory findings, but had diverticulosis. IMPRESSION AND PLAN: Nausea and vomiting, status post partial colectomy. The differential includes obstipation with constipation, hypothyroidism with bradycardia, peptic ulcer disease and gastric outlet obstruction. Therefore, I recommend thyroid function tests, MiraLax and Amitiza pending the thyroid function tests and if there is no improvement, then further evaluation and possible upper endoscopy would be pursued at a later time. DEVI BURGOS MD DR: MARCIN/miguel JOB#: [id number] / [id number] ANDRES Ribeiro MD
[2019-07-10 03:11] VITALS: BP 125/69
[2019-07-10] MEDS: METOCLOPRAMIDE HCL 10 MG/2 ML VIAL. IVP PRN ×2 (04:48→17:26)
[2019-07-10 06:51] LABS: CALCIUM 8.3 mg/dL (8.5-10.1); CREATININE 0.8 mg/dL (0.6-1.0); GFR 78.7; POTASSIUM 3.4 mmol/L (3.5-5.1)
[2019-07-10 07:00] VITALS: BP 113/69
[2019-07-10 07:00] LABS: BASO % 1 % (0-3); EOS % 0 % (0-3); HEMATOCRIT 35.6 % (36.0-47.0); HEMOGLOBIN 12.5 g/dL (12.0-15.5); LYMPH # 1.4 x10^3/uL (1.0-4.8); LYMPH % 30 % (24-48); MEAN CORPUSCULAR HEMOGLOBIN 33 pg (25-35); MEAN CORPUSCULAR HGB CONC 35 g/dL (31-37); MEAN CORPUSCULAR VOLUME 93 fL (79-100); MONO # 0.4 x10^3/uL (0.0-1.1); MONO % 8 % (0-9); NEUT % 62 % (31-73); PLATELET COUNT 290 x10^3/uL (140-400); RED BLOOD COUNT 3.84 x10^6/uL (3.50-5.40); RED CELL DISTRIBUTION WIDTH 12.1 % (11.5-14.5); WHITE BLOOD COUNT 4.8 x10^3/uL (4.0-11.0)
[2019-07-10] MEDS: IV NORMAL SALINE 1000ML BAG 1,000 ML IV SCH ×2 (08:49→19:59)
[2019-07-10] MEDS: PANTOPRAZOLE IV PUSH 40 MG VIAL. IVP SCH (08:49)
[2019-07-10] MEDS: ENOXAPARIN 40 MG/0.4 ML SYRINGE. SQ SCH (08:50)
[2019-07-10] MEDS: POLYETHYLENE GLYCOL 3350 17 GM PACKET. PO SCH (09:00)
--- NOTE | 2019-07-10 09:44 | PDOC2 ---
CONSULT Date of Consult Date of Consult DATE: 07/10/19 TIME: 09:41 Reason for Consult Reason for Consult: abd pain, constipation Referring Physician Referring Physician: Dr. Morales Identification/Chief Complaint Chief Complaint abd pain, constipation Source Source: Chart review, Patient History of Present Illness Reason for Visit: 44 yo F s/p recent colectomy for colon cancer. Did well and went home. Presented with abd pain. Treated with laxatives last night and feels much better today. Hungry. Past Medical History Heme/Onc: Cancer Infectious disease: No pertinent hx Renal/: No pertinent hx Past Surgical History Past Surgical History: Colon Resection Family History Family History: High Cholestrol Social History No ALCOHOL: none Drugs: None Current Problem List Problem List Problems Medical Problems: (1) Intractable nausea and vomiting Status: Acute Current Medications Current Medications Current Medications Sodium Chloride 1,000 ml @ 1,000 mls/hr Q1H IV Last administered on 07/09/19at 06:18; Start 07/09/19 at 06:15; Stop 07/09/19 at 07:14; Status DC Ondansetron HCl (Zofran) 4 mg 1X ONCE IV Last administered on 07/09/19at 06:18; Start 07/09/19 at 06:15; Stop 07/09/19 at 06:16; Status DC Iohexol (Omnipaque 240 Mg/ml) 30 ml 1X ONCE PO Last administered on 07/09/19at 08:20; Start 07/09/19 at 07:30; Stop 07/09/19 at 07:31; Status DC Iohexol (Omnipaque 300 Mg/ml) 75 ml 1X ONCE IV Last administered on 07/09/19at 08:20; Start 07/09/19 at 07:30; Stop 07/09/19 at 07:31; Status DC Info (CONTRAST GIVEN -- Rx MONITORING) 1 each PRN DAILY PRN MC SEE COMMENTS; Start 07/09/19 at 07:30; Stop 07/11/19 at 07:29 Metoclopramide HCl (Reglan Vial) 10 mg 1X ONCE IVP Last administered on 07/09/19at 08:34; Start 07/09/19 at 08:30; Stop 07/09/19 at 08:31; Status DC Diphenhydramine HCl (Benadryl) 25 mg 1X ONCE IVP Last administered on 07/09/19at 08:33; Start 07/09/19 at 08:30; Stop 07/09/19 at 08:31; Status DC Ondansetron HCl (Zofran) 4 mg PRN Q8HRS PRN IV NAUSEA/VOMITING; Start 07/09/19 at 09:30; Stop 07/10/19 at 09:29; Status DC Sodium Chloride 1,000 ml @ 125 mls/hr Q8H IV Last administered on 07/09/19at 13:37; Start 07/09/19 at 09:29; Stop 07/09/19 at 22:33; Status DC Metoclopramide HCl (Reglan Vial) 10 mg PRN Q6HRS PRN IVP NAUSEA/VOMITING Last administered on 07/10/19at 04:48; Start 07/09/19 at 13:30 Prochlorperazine Edisylate (Compazine) 5 mg PRN Q6HRS ONCE IV ; Start 07/09/19 at 13:30; Stop 07/09/19 at 13:43; Status DC Prochlorperazine Edisylate (Compazine) 5 mg PRN Q6HRS PRN IV NAUSEA/VOMITING Last administered on 07/09/19at 22:57; Start 07/09/19 at 13:45 Sodium Chloride (Normal Saline Flush) 3 ml QSHIFT PRN IV AFTER MEDS AND BLOOD DRAWS; Start 07/09/19 at 14:00 Sodium Chloride 1,000 ml @ 100 mls/hr Q10H IV Last administered on 07/10/19at 08:49; Start 07/09/19 at 13:59 Ondansetron HCl (Zofran) 4 mg PRN Q4HRS PRN IV NAUSEA/VOMITING; Start 07/09/19 at 14:00 Acetaminophen (Tylenol) 650 mg PRN Q4HRS PRN PO TEMP OVER 100.4F OR MILD PAIN; Start 07/09/19 at 14:00 Clonidine HCl (Catapres) 0.1 mg PRN Q6HRS PRN PO SBP>160 OR DBP>90; Start 07/09/19 at 14:00 Docusate Sodium (Colace) 100 mg PRN BID PRN PO HARD STOOLS; Start 07/09/19 at 14:00 Albuterol Sulfate (Ventolin Neb Soln) 2.5 mg PRN Q4HRS PRN NEB SHORTNESS OF BREATH; Start 07/09/19 at 14:00 Guaifenesin (Robitussin) 200 mg PRN Q4HRS PRN PO COUGH; Start 07/09/19 at 14:00 Lorazepam (Ativan) 0.5 mg PRN Q4HRS PRN PO ANXIETY / AGITATION; Start 07/09/19 at 14:00 Enoxaparin Sodium (Lovenox 40mg Syringe) 40 mg DAILY SQ Last administered on 07/10/19at 08:50; Start 07/10/19 at 09:00 Potassium Chloride/Water 50 ml @ 50 mls/hr Q1H IV ; Start 07/09/19 at 14:15; Stop 07/09/19 at 16:14; Status UNV Pantoprazole Sodium (PROTONIX VIAL for IV PUSH) 40 mg DAILYAC IVP Last administered on 07/10/19at 08:49; Start 07/09/19 at 14:15 Potassium Chloride/Water 100 ml @ 100 mls/hr Q1H IV Last administered on 07/09/19at 17:35; Start 07/09/19 at 14:30; Stop 07/09/19 at 18:29; Status DC Lubiprostone (Amitiza) 24 mcg BIDWMEALS PO Last administered on 07/09/19at 17:35; Start 07/09/19 at 17:00 Polyethylene Glycol (miraLAX PACKET) 17 gm DAILY PO Last administered on 07/09/19at 17:35; Start 07/09/19 at 17:00 Active Scripts Active Reported Flonase Allergy Relief (Fluticasone Propionate) 9.9 Ml [place].susp 1 Sprays NS DAILY Proair Hfa (Albuterol Sulfate) 8.5 Gm Hfa.aer.ad 1 Puff INH PRN Q6HRS PRN Zyrtec (Cetirizine Hcl) 10 Mg Tablet 10 Mg PO DAILY Symbicort 160-4.5 Mcg Inhaler (Budesonide/Formoterol Fumarate) 10.2 Gm Hfa.aer.ad 1 Puff IH DAILY Allergies Allergies: Coded Allergies: amoxicillin (Verified Adverse Reaction, Intermediate, Nausea and Vomiting, 06/21/19) clavulanic acid (Verified Adverse Reaction, Intermediate, Nausea and Vomiting, 06/21/19) erythromycin base (Verified Adverse Reaction, Intermediate, Nausea and Vomiting, 06/21/19) ROS Gastrointestinal: Yes Abdominal Pain, Yes Constipation Physical Exam General: Alert, Oriented X3, Cooperative, No acute distress HEENT: Atraumatic Lungs: Normal air movement Abdomen: Soft, No tenderness, Other (well healed incision) Extremities: No clubbing, No cyanosis Skin: No rashes, No breakdown Neuro: Normal speech, Sensation intact Psych/Mental Status: Mental status NL, Mood NL Vitals VITALS Vital Signs Date Time Temp Pulse Resp B/P (MAP) Pulse Ox O2 Delivery O2 Flow Rate FiO2 07/10/19 07:00 98.3 62 20 113/69 (84) 97 Room Air 98.3 Labs Labs Laboratory Tests Test 07/09/19 06:02 07/09/19 07:24 07/10/19 05:10 White Blood Count 6.4 x10^3/uL (4.0-11.0) 4.8 x10^3/uL (4.0-11.0) Red Blood Count 4.44 x10^6/uL (3.50-5.40) 3.84 x10^6/uL (3.50-5.40) Hemoglobin 14.4 g/dL (12.0-15.5) 12.5 g/dL (12.0-15.5) Hematocrit 41.6 % (36.0-47.0) 35.6 % (36.0-47.0) Mean Corpuscular Volume 94 fL (79-100) 93 fL (79-100) Mean Corpuscular Hemoglobin 33 pg (25-35) 33 pg (25-35) Mean Corpuscular Hemoglobin Concent 35 g/dL (31-37) 35 g/dL (31-37) Red Cell Distribution Width 11.8 % (11.5-14.5) 12.1 % (11.5-14.5) Platelet Count 355 x10^3/uL (140-400) 290 x10^3/uL (140-400) Neutrophils (%) (Auto) 83 % (31-73) 62 % (31-73) Lymphocytes (%) (Auto) 12 % (24-48) 30 % (24-48) Monocytes (%) (Auto) 5 % (0-9) 8 % (0-9) Eosinophils (%) (Auto) 0 % (0-3) 0 % (0-3) Basophils (%) (Auto) 0 % (0-3) 1 % (0-3) Neutrophils # (Auto) 5.3 x10^3/uL (1.8-7.7) 3.0 x10^3/uL (1.8-7.7) Lymphocytes # (Auto) 0.8 x10^3/uL (1.0-4.8) 1.4 x10^3/uL (1.0-4.8) Monocytes # (Auto) 0.3 x10^3/uL (0.0-1.1) 0.4 x10^3/uL (0.0-1.1) Eosinophils # (Auto) 0.0 x10^3/uL (0.0-0.7) 0.0 x10^3/uL (0.0-0.7) Basophils # (Auto) 0.0 x10^3/uL (0.0-0.2) 0.0 x10^3/uL (0.0-0.2) Sodium Level 136 mmol/L (136-145) 136 mmol/L (136-145) Potassium Level 3.3 mmol/L (3.5-5.1) 3.4 mmol/L (3.5-5.1) Chloride Level 98 mmol/L (98-107) 102 mmol/L (98-107) Carbon Dioxide Level 28 mmol/L (21-32) 23 mmol/L (21-32) Anion Gap 10 (6-14) 11 (6-14) Blood Urea Nitrogen 10 mg/dL (7-20) 5 mg/dL (7-20) Creatinine 1.0 mg/dL (0.6-1.0) 0.8 mg/dL (0.6-1.0) Estimated GFR (Cockcroft-Gault) 60.8 78.7 BUN/Creatinine Ratio 10 (6-20) Glucose Level 120 mg/dL (70-99) 83 mg/dL (70-99) Calcium Level 9.2 mg/dL (8.5-10.1) 8.3 mg/dL (8.5-10.1) Total Bilirubin 0.9 mg/dL (0.2-1.0) Aspartate Amino Transf (AST/SGOT) 10 U/L (15-37) Alanine Aminotransferase (ALT/SGPT) 14 U/L (14-59) Alkaline Phosphatase 50 U/L (46-116) Total Protein 7.9 g/dL (6.4-8.2) Albumin 4.5 g/dL (3.4-5.0) Albumin/Globulin Ratio 1.3 (1.0-1.7) Lipase 100 U/L (73-393) Thyroid Stimulating Hormone (TSH) 0.525 uIU/mL (0.358-3.74) Thyroxine (T4) 8.9 ug/dL (4.5-12.0) Urine Collection Type Unknown Urine Color Donna Urine Clarity Clear Urine pH 5.5 Urine Specific [place] >=1.030 Urine Protein 30 mg/dL (NEG-TRACE) Urine Glucose (UA) Negative mg/dL (NEG) Urine Ketones (Stick) >=80 mg/dL (NEG) Urine Blood Large (NEG) Urine Nitrite Negative (NEG) Urine Bilirubin Small (NEG) Urine Urobilinogen Dipstick 1.0 mg/dL (0.2 mg/dL) Urine Leukocyte Esterase Negative (NEG) Urine RBC 0 /HPF (0-2) Urine WBC 1-4 /HPF (0-4) Urine Squamous Epithelial Cells Mod /LPF Urine Bacteria 0 /HPF (0-FEW) Urine Mucus Marked /LPF Laboratory Tests Test 07/10/19 05:10 White Blood Count 4.8 x10^3/uL (4.0-11.0) Red Blood Count 3.84 x10^6/uL (3.50-5.40) Hemoglobin 12.5 g/dL (12.0-15.5) Hematocrit 35.6 % (36.0-47.0) Mean Corpuscular Volume 93 fL (79-100) Mean Corpuscular Hemoglobin 33 pg (25-35) Mean Corpuscular Hemoglobin Concent 35 g/dL (31-37) Red Cell Distribution Width 12.1 % (11.5-14.5) Platelet Count 290 x10^3/uL (140-400) Neutrophils (%) (Auto) 62 % (31-73) Lymphocytes (%) (Auto) 30 % (24-48) Monocytes (%) (Auto) 8 % (0-9) Eosinophils (%) (Auto) 0 % (0-3) Basophils (%) (Auto) 1 % (0-3) Neutrophils # (Auto) 3.0 x10^3/uL (1.8-7.7) Lymphocytes # (Auto) 1.4 x10^3/uL (1.0-4.8) Monocytes # (Auto) 0.4 x10^3/uL (0.0-1.1) Eosinophils # (Auto) 0.0 x10^3/uL (0.0-0.7) Basophils # (Auto) 0.0 x10^3/uL (0.0-0.2) Sodium Level 136 mmol/L (136-145) Potassium Level 3.4 mmol/L (3.5-5.1) Chloride Level 102 mmol/L (98-107) Carbon Dioxide Level 23 mmol/L (21-32) Anion Gap 11 (6-14) Blood Urea Nitrogen 5 mg/dL (7-20) Creatinine 0.8 mg/dL (0.6-1.0) Estimated GFR (Cockcroft-Gault) 78.7 Glucose Level 83 mg/dL (70-99) Calcium Level 8.3 mg/dL (8.5-10.1) Images Images CT with stool but no obstruction Assessment/Plan Assessment/Plan Constipation appears resolved. will trial full liquids. Thanks for consult! VICKI FRANCO MD Jul 10, 2019 09:44
[2019-07-10] MEDS: LUBIPROSTONE 24 MCG CAPSULE PO SCH ×2 (10:49→17:00)
[2019-07-10 11:00] VITALS: BP 115/74
--- NOTE | 2019-07-10 14:32 | PDOC ---
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 Small amount of fluid in the presacral region noted. ON CT 07/09No bowel obstruction or suspicious inflammatory findings. hypokalemia History of Present Illness History of Present Illness IV FLUID SUPPORT IV ANTIEMETICS CONSULT DR RIVERA CONSULT GI replace lytes dvt prophylaxis iv protonix Vitals Vitals Vital Signs Date Time Temp Pulse Resp B/P (MAP) Pulse Ox O2 Delivery O2 Flow Rate FiO2 07/10/19 11:00 98.0 74 20 115/74 (88) 96 Room Air 98.0 Physical Exam General: Alert, Oriented X3, Cooperative, No acute distress Abdomen: Soft, No tenderness, Other (well healed incision) Extremities: No clubbing, No cyanosis Skin: No rashes, No breakdown Labs LABS Laboratory Tests Test 07/10/19 05:10 White Blood Count 4.8 x10^3/uL (4.0-11.0) Red Blood Count 3.84 x10^6/uL (3.50-5.40) Hemoglobin 12.5 g/dL (12.0-15.5) Hematocrit 35.6 % (36.0-47.0) Mean Corpuscular Volume 93 fL (79-100) Mean Corpuscular Hemoglobin 33 pg (25-35) Mean Corpuscular Hemoglobin Concent 35 g/dL (31-37) Red Cell Distribution Width 12.1 % (11.5-14.5) Platelet Count 290 x10^3/uL (140-400) Neutrophils (%) (Auto) 62 % (31-73) Lymphocytes (%) (Auto) 30 % (24-48) Monocytes (%) (Auto) 8 % (0-9) Eosinophils (%) (Auto) 0 % (0-3) Basophils (%) (Auto) 1 % (0-3) Neutrophils # (Auto) 3.0 x10^3/uL (1.8-7.7) Lymphocytes # (Auto) 1.4 x10^3/uL (1.0-4.8) Monocytes # (Auto) 0.4 x10^3/uL (0.0-1.1) Eosinophils # (Auto) 0.0 x10^3/uL (0.0-0.7) Basophils # (Auto) 0.0 x10^3/uL (0.0-0.2) Sodium Level 136 mmol/L (136-145) Potassium Level 3.4 mmol/L (3.5-5.1) Chloride Level 102 mmol/L (98-107) Carbon Dioxide Level 23 mmol/L (21-32) Anion Gap 11 (6-14) Blood Urea Nitrogen 5 mg/dL (7-20) Creatinine 0.8 mg/dL (0.6-1.0) Estimated GFR (Cockcroft-Gault) 78.7 Glucose Level 83 mg/dL (70-99) Calcium Level 8.3 mg/dL (8.5-10.1) Assessment and Plan Assessmemt and Plan Problems Medical Problems: (1) Intractable nausea and vomiting Status: Acute Comment Review of Relevant I have reviewed the following items gail (where applicable) has been applied. Labs Laboratory Tests Test 07/09/19 06:02 07/09/19 07:24 07/10/19 05:10 White Blood Count 6.4 x10^3/uL (4.0-11.0) 4.8 x10^3/uL (4.0-11.0) Red Blood Count 4.44 x10^6/uL (3.50-5.40) 3.84 x10^6/uL (3.50-5.40) Hemoglobin 14.4 g/dL (12.0-15.5) 12.5 g/dL (12.0-15.5) Hematocrit 41.6 % (36.0-47.0) 35.6 % (36.0-47.0) Mean Corpuscular Volume 94 fL (79-100) 93 fL (79-100) Mean Corpuscular Hemoglobin 33 pg (25-35) 33 pg (25-35) Mean Corpuscular Hemoglobin Concent 35 g/dL (31-37) 35 g/dL (31-37) Red Cell Distribution Width 11.8 % (11.5-14.5) 12.1 % (11.5-14.5) Platelet Count 355 x10^3/uL (140-400) 290 x10^3/uL (140-400) Neutrophils (%) (Auto) 83 % (31-73) 62 % (31-73) Lymphocytes (%) (Auto) 12 % (24-48) 30 % (24-48) Monocytes (%) (Auto) 5 % (0-9) 8 % (0-9) Eosinophils (%) (Auto) 0 % (0-3) 0 % (0-3) Basophils (%) (Auto) 0 % (0-3) 1 % (0-3) Neutrophils # (Auto) 5.3 x10^3/uL (1.8-7.7) 3.0 x10^3/uL (1.8-7.7) Lymphocytes # (Auto) 0.8 x10^3/uL (1.0-4.8) 1.4 x10^3/uL (1.0-4.8) Monocytes # (Auto) 0.3 x10^3/uL (0.0-1.1) 0.4 x10^3/uL (0.0-1.1) Eosinophils # (Auto) 0.0 x10^3/uL (0.0-0.7) 0.0 x10^3/uL (0.0-0.7) Basophils # (Auto) 0.0 x10^3/uL (0.0-0.2) 0.0 x10^3/uL (0.0-0.2) Sodium Level 136 mmol/L (136-145) 136 mmol/L (136-145) Potassium Level 3.3 mmol/L (3.5-5.1) 3.4 mmol/L (3.5-5.1) Chloride Level 98 mmol/L (98-107) 102 mmol/L (98-107) Carbon Dioxide Level 28 mmol/L (21-32) 23 mmol/L (21-32) Anion Gap 10 (6-14) 11 (6-14) Blood Urea Nitrogen 10 mg/dL (7-20) 5 mg/dL (7-20) Creatinine 1.0 mg/dL (0.6-1.0) 0.8 mg/dL (0.6-1.0) Estimated GFR (Cockcroft-Gault) 60.8 78.7 BUN/Creatinine Ratio 10 (6-20) Glucose Level 120 mg/dL (70-99) 83 mg/dL (70-99) Calcium Level 9.2 mg/dL (8.5-10.1) 8.3 mg/dL (8.5-10.1) Total Bilirubin 0.9 mg/dL (0.2-1.0) Aspartate Amino Transf (AST/SGOT) 10 U/L (15-37) Alanine Aminotransferase (ALT/SGPT) 14 U/L (14-59) Alkaline Phosphatase 50 U/L (46-116) Total Protein 7.9 g/dL (6.4-8.2) Albumin 4.5 g/dL (3.4-5.0) Albumin/Globulin Ratio 1.3 (1.0-1.7) Lipase 100 U/L (73-393) Thyroid Stimulating Hormone (TSH) 0.525 uIU/mL (0.358-3.74) Thyroxine (T4) 8.9 ug/dL (4.5-12.0) Urine Collection Type Unknown Urine Color Donna Urine Clarity Clear Urine pH 5.5 Urine Specific [place] >=1.030 Urine Protein 30 mg/dL (NEG-TRACE) Urine Glucose (UA) Negative mg/dL (NEG) Urine Ketones (Stick) >=80 mg/dL (NEG) Urine Blood Large (NEG) Urine Nitrite Negative (NEG) Urine Bilirubin Small (NEG) Urine Urobilinogen Dipstick 1.0 mg/dL (0.2 mg/dL) Urine Leukocyte Esterase Negative (NEG) Urine RBC 0 /HPF (0-2) Urine WBC 1-4 /HPF (0-4) Urine Squamous Epithelial Cells Mod /LPF Urine Bacteria 0 /HPF (0-FEW) Urine Mucus Marked /LPF Laboratory Tests Test 07/10/19 05:10 White Blood Count 4.8 x10^3/uL (4.0-11.0) Red Blood Count 3.84 x10^6/uL (3.50-5.40) Hemoglobin 12.5 g/dL (12.0-15.5) Hematocrit 35.6 % (36.0-47.0) Mean Corpuscular Volume 93 fL (79-100) Mean Corpuscular Hemoglobin 33 pg (25-35) Mean Corpuscular Hemoglobin Concent 35 g/dL (31-37) Red Cell Distribution Width 12.1 % (11.5-14.5) Platelet Count 290 x10^3/uL (140-400) Neutrophils (%) (Auto) 62 % (31-73) Lymphocytes (%) (Auto) 30 % (24-48) Monocytes (%) (Auto) 8 % (0-9) Eosinophils (%) (Auto) 0 % (0-3) Basophils (%) (Auto) 1 % (0-3) Neutrophils # (Auto) 3.0 x10^3/uL (1.8-7.7) Lymphocytes # (Auto) 1.4 x10^3/uL (1.0-4.8) Monocytes # (Auto) 0.4 x10^3/uL (0.0-1.1) Eosinophils # (Auto) 0.0 x10^3/uL (0.0-0.7) Basophils # (Auto) 0.0 x10^3/uL (0.0-0.2) Sodium Level 136 mmol/L (136-145) Potassium Level 3.4 mmol/L (3.5-5.1) Chloride Level 102 mmol/L (98-107) Carbon Dioxide Level 23 mmol/L (21-32) Anion Gap 11 (6-14) Blood Urea Nitrogen 5 mg/dL (7-20) Creatinine 0.8 mg/dL (0.6-1.0) Estimated GFR (Cockcroft-Gault) 78.7 Glucose Level 83 mg/dL (70-99) Calcium Level 8.3 mg/dL (8.5-10.1) Medications Current Medications Sodium Chloride 1,000 ml @ 1,000 mls/hr Q1H IV Last administered on 07/09/19at 06:18; Start 07/09/19 at 06:15; Stop 07/09/19 at 07:14; Status DC Ondansetron HCl (Zofran) 4 mg 1X ONCE IV Last administered on 07/09/19at 06:18; Start 07/09/19 at 06:15; Stop 07/09/19 at 06:16; Status DC Iohexol (Omnipaque 240 Mg/ml) 30 ml 1X ONCE PO Last administered on 07/09/19at 08:20; Start 07/09/19 at 07:30; Stop 07/09/19 at 07:31; Status DC Iohexol (Omnipaque 300 Mg/ml) 75 ml 1X ONCE IV Last administered on 07/09/19at 08:20; Start 07/09/19 at 07:30; Stop 07/09/19 at 07:31; Status DC Info (CONTRAST GIVEN -- Rx MONITORING) 1 each PRN DAILY PRN MC SEE COMMENTS; Start 07/09/19 at 07:30; Stop 07/11/19 at 07:29 Metoclopramide HCl (Reglan Vial) 10 mg 1X ONCE IVP Last administered on 07/09/19at 08:34; Start 07/09/19 at 08:30; Stop 07/09/19 at 08:31; Status DC Diphenhydramine HCl (Benadryl) 25 mg 1X ONCE IVP Last administered on 07/09/19at 08:33; Start 07/09/19 at 08:30; Stop 07/09/19 at 08:31; Status DC Ondansetron HCl (Zofran) 4 mg PRN Q8HRS PRN IV NAUSEA/VOMITING; Start 07/09/19 at 09:30; Stop 07/10/19 at 09:29; Status DC Sodium Chloride 1,000 ml @ 125 mls/hr Q8H IV Last administered on 07/09/19at 13:37; Start 07/09/19 at 09:29; Stop 07/09/19 at 22:33; Status DC Metoclopramide HCl (Reglan Vial) 10 mg PRN Q6HRS PRN IVP NAUSEA/VOMITING Last administered on 07/10/19at 04:48; Start 07/09/19 at 13:30 Prochlorperazine Edisylate (Compazine) 5 mg PRN Q6HRS ONCE IV ; Start 07/09/19 at 13:30; Stop 07/09/19 at 13:43; Status DC Prochlorperazine Edisylate (Compazine) 5 mg PRN Q6HRS PRN IV NAUSEA/VOMITING Last administered on 07/09/19at 22:57; Start 07/09/19 at 13:45 Sodium Chloride (Normal Saline Flush) 3 ml QSHIFT PRN IV AFTER MEDS AND BLOOD DRAWS; Start 07/09/19 at 14:00 Sodium Chloride 1,000 ml @ 100 mls/hr Q10H IV Last administered on 07/10/19at 08:49; Start 07/09/19 at 13:59 Ondansetron HCl (Zofran) 4 mg PRN Q4HRS PRN IV NAUSEA/VOMITING; Start 07/09/19 at 14:00 Acetaminophen (Tylenol) 650 mg PRN Q4HRS PRN PO TEMP OVER 100.4F OR MILD PAIN; Start 07/09/19 at 14:00 Clonidine HCl (Catapres) 0.1 mg PRN Q6HRS PRN PO SBP>160 OR DBP>90; Start 07/09/19 at 14:00 Docusate Sodium (Colace) 100 mg PRN BID PRN PO HARD STOOLS; Start 07/09/19 at 14:00 Albuterol Sulfate (Ventolin Neb Soln) 2.5 mg PRN Q4HRS PRN NEB SHORTNESS OF BREATH; Start 07/09/19 at 14:00 Guaifenesin (Robitussin) 200 mg PRN Q4HRS PRN PO COUGH; Start 07/09/19 at 14:00 Lorazepam (Ativan) 0.5 mg PRN Q4HRS PRN PO ANXIETY / AGITATION; Start 07/09/19 at 14:00 Enoxaparin Sodium (Lovenox 40mg Syringe) 40 mg DAILY SQ Last administered on 07/10/19at 08:50; Start 07/10/19 at 09:00 Potassium Chloride/Water 50 ml @ 50 mls/hr Q1H IV ; Start 07/09/19 at 14:15; Stop 07/09/19 at 16:14; Status UNV Pantoprazole Sodium (PROTONIX VIAL for IV PUSH) 40 mg DAILYAC IVP Last administered on 07/10/19at 08:49; Start 07/09/19 at 14:15 Potassium Chloride/Water 100 ml @ 100 mls/hr Q1H IV Last administered on 07/09/19at 17:35; Start 07/09/19 at 14:30; Stop 07/09/19 at 18:29; Status DC Lubiprostone (Amitiza) 24 mcg BIDWMEALS PO Last administered on 07/10/19at 10:49; Start 07/09/19 at 17:00 Polyethylene Glycol (miraLAX PACKET) 17 gm DAILY PO Last administered on 07/09/19at 17:35; Start 07/09/19 at 17:00 Active Scripts Active Reported Flonase Allergy Relief (Fluticasone Propionate) 9.9 Ml [place].susp 1 Sprays NS DAILY Proair Hfa (Albuterol Sulfate) 8.5 Gm Hfa.aer.ad 1 Puff INH PRN Q6HRS PRN Zyrtec (Cetirizine Hcl) 10 Mg Tablet 10 Mg PO DAILY Symbicort 160-4.5 Mcg Inhaler (Budesonide/Formoterol Fumarate) 10.2 Gm Hfa.aer.ad 1 Puff IH DAILY Vitals/I & O Vital Sign - Last 24 Hours 07/09/19 07/09/19 07/09/19 07/09/19 15:00 19:00 19:20 23:07 Temp 98.4 98.6 98.1 98.4 98.6 98.1 Pulse 60 57 58 Resp 18 20 20 B/P (MAP) 113/70 (84) 124/61 (82) 123/64 (83) Pulse Ox 97 97 97 O2 Delivery Room Air Room Air Room Air Room Air 07/10/19 07/10/19 07/10/19 07/10/19 03:11 07:00 08:00 11:00 Temp 98.2 98.3 98.0 98.2 98.3 98.0 Pulse 62 62 74 Resp 20 20 20 B/P (MAP) 125/69 (87) 113/69 (84) 115/74 (88) Pulse Ox 96 97 96 O2 Delivery Room Air Room Air Room Air Room Air Intake and Output 07/09/19 07/09/19 07/10/19 15:00 23:00 07:00 Intake Total 1000 ml 1100 ml 0 ml Balance 1000 ml 1100 ml [address] MD Jul 10, 2019 14:32
--- NOTE | 2019-07-10 14:47 | PDOC ---
Subjective: Subjective: Amitiza upset her stomach )not given with food). She had a BM. Tolerated yogurt without emesis today Objective: Vital Signs: Vital Signs Date Time Temp Pulse Resp B/P (MAP) Pulse Ox O2 Delivery O2 Flow Rate FiO2 07/10/19 11:00 98.0 74 20 115/74 (88) 96 Room Air 98.0 Labs: Laboratory Tests Test 07/10/19 05:10 White Blood Count 4.8 x10^3/uL (4.0-11.0) Red Blood Count 3.84 x10^6/uL (3.50-5.40) Hemoglobin 12.5 g/dL (12.0-15.5) Hematocrit 35.6 % (36.0-47.0) Mean Corpuscular Volume 93 fL (79-100) Mean Corpuscular Hemoglobin 33 pg (25-35) Mean Corpuscular Hemoglobin Concent 35 g/dL (31-37) Red Cell Distribution Width 12.1 % (11.5-14.5) Platelet Count 290 x10^3/uL (140-400) Neutrophils (%) (Auto) 62 % (31-73) Lymphocytes (%) (Auto) 30 % (24-48) Monocytes (%) (Auto) 8 % (0-9) Eosinophils (%) (Auto) 0 % (0-3) Basophils (%) (Auto) 1 % (0-3) Neutrophils # (Auto) 3.0 x10^3/uL (1.8-7.7) Lymphocytes # (Auto) 1.4 x10^3/uL (1.0-4.8) Monocytes # (Auto) 0.4 x10^3/uL (0.0-1.1) Eosinophils # (Auto) 0.0 x10^3/uL (0.0-0.7) Basophils # (Auto) 0.0 x10^3/uL (0.0-0.2) Sodium Level 136 mmol/L (136-145) Potassium Level 3.4 mmol/L (3.5-5.1) Chloride Level 102 mmol/L (98-107) Carbon Dioxide Level 23 mmol/L (21-32) Anion Gap 11 (6-14) Blood Urea Nitrogen 5 mg/dL (7-20) Creatinine 0.8 mg/dL (0.6-1.0) Estimated GFR (Cockcroft-Gault) 78.7 Glucose Level 83 mg/dL (70-99) Calcium Level 8.3 mg/dL (8.5-10.1) Physical Exam: Physical Exam: HEENT: Normocephalic, atraumatic head. LUNGS: Clear. CARDIOVASCULAR: Reveals an S1, S2 without S3, S4 or appreciable murmur. ABDOMEN: Reveals a soft abdomen with hypoactive bowel sounds, without appreciable hepatosplenomegaly. Intact surgical incision. No point tenderness. EXTREMITIES: Reveals no cyanosis, clubbing or edema. Assessment & Plan: Assessment : 1)Nausea and vomiting - normal TFTs 2) Colon cancer status post partial colectomy. Plan: 1)COnintue AMitiza- give with food 2) SHENA FRANKLIN MD Jul 10, 2019 14:47
[2019-07-10 15:10] VITALS: BP 129/75
[2019-07-10 19:00] VITALS: BP 152/75
[2019-07-10] MEDS: ONDANSETRON PF 4 MG/2 ML VIAL. IV PRN (22:10)
[2019-07-10 23:00] VITALS: BP 129/56
[2019-07-11 03:00] VITALS: BP 128/65
[2019-07-11] MEDS: ONDANSETRON PF 4 MG/2 ML VIAL. IV PRN (04:36)
[2019-07-11] MEDS: IV NORMAL SALINE 1000ML BAG 1,000 ML IV SCH (06:12)
[2019-07-11 07:00] VITALS: BP 130/60
[2019-07-11] MEDS: POLYETHYLENE GLYCOL 3350 17 GM PACKET. PO SCH (08:40)
[2019-07-11] MEDS: LUBIPROSTONE 24 MCG CAPSULE PO SCH (08:40)
[2019-07-11] MEDS: ENOXAPARIN 40 MG/0.4 ML SYRINGE. SQ SCH (08:40)
[2019-07-11] MEDS: PANTOPRAZOLE IV PUSH 40 MG VIAL. IVP SCH (08:41)
--- NOTE | 2019-07-11 10:02 | PDOC ---
SURGICAL PROGRESS NOTE Subjective nausea earlier tolerated breakfast stool yesterday Vital Signs Vital Signs Date Time Temp Pulse Resp B/P (MAP) Pulse Ox O2 Delivery O2 Flow Rate FiO2 07/11/19 08:00 Room Air 07/11/19 07:00 98.2 55 16 130/60 (83) 96 98.2 I&O Intake and Output 07/11/19 07:00 Intake Total 2800 ml Balance 2800 ml Intake Oral 400 ml IV Total 1200 ml Other 1200 ml # Voids 5 General: Alert, Oriented X3, Cooperative Abdomen: Soft, No tenderness Labs Laboratory Tests Test 07/10/19 05:10 White Blood Count 4.8 x10^3/uL (4.0-11.0) Red Blood Count 3.84 x10^6/uL (3.50-5.40) Hemoglobin 12.5 g/dL (12.0-15.5) Hematocrit 35.6 % (36.0-47.0) Mean Corpuscular Volume 93 fL (79-100) Mean Corpuscular Hemoglobin 33 pg (25-35) Mean Corpuscular Hemoglobin Concent 35 g/dL (31-37) Red Cell Distribution Width 12.1 % (11.5-14.5) Platelet Count 290 x10^3/uL (140-400) Neutrophils (%) (Auto) 62 % (31-73) Lymphocytes (%) (Auto) 30 % (24-48) Monocytes (%) (Auto) 8 % (0-9) Eosinophils (%) (Auto) 0 % (0-3) Basophils (%) (Auto) 1 % (0-3) Neutrophils # (Auto) 3.0 x10^3/uL (1.8-7.7) Lymphocytes # (Auto) 1.4 x10^3/uL (1.0-4.8) Monocytes # (Auto) 0.4 x10^3/uL (0.0-1.1) Eosinophils # (Auto) 0.0 x10^3/uL (0.0-0.7) Basophils # (Auto) 0.0 x10^3/uL (0.0-0.2) Sodium Level 136 mmol/L (136-145) Potassium Level 3.4 mmol/L (3.5-5.1) Chloride Level 102 mmol/L (98-107) Carbon Dioxide Level 23 mmol/L (21-32) Anion Gap 11 (6-14) Blood Urea Nitrogen 5 mg/dL (7-20) Creatinine 0.8 mg/dL (0.6-1.0) Estimated GFR (Cockcroft-Gault) 78.7 Glucose Level 83 mg/dL (70-99) Calcium Level 8.3 mg/dL (8.5-10.1) Problem List Problems Medical Problems: (1) Intractable nausea and vomiting Status: Acute Assessment/Plan constipation improving DONALD JHAVERI APRN Jul 11, 2019 10:02
[2019-07-11] MEDS ORDERED: PANT40TA77 PO (10:13)
[2019-07-11] MEDS ORDERED: ONDA4TAB7 PO (10:13)
[2019-07-11] MEDS ORDERED: ONDANSETRON ODT 4 MG TAB.RAPDIS. PO PRN (11:00)
--- NOTE | 2019-07-11 11:17 | NUR ---
Pt discharged home with self care. Discharge instructions and prescriptions discussed. Pt verbalized understanding. IV removed. Pt ambulated to main entrance and was secured in vehicle with .
--- NOTE | 2019-07-11 15:18 | PDOC3 ---
Discharge Summary Visit Information Date of Admission: Jul 09, 2019 Date of Discharge: Jul 11, 2019 Final Diagnosis acute nausea and vomiting intractable vomiting, viral enteritis, HX RECENT RESECTION FOR ADENOCARCINOMA OF COLON Small umbilical hernia containing omental fat. Small amount of fluid in the presacral region noted. hypokalemia Problems Medical Problems: (1) Intractable nausea and vomiting Status: Acute Brief Hospital Course Allergies Allergies Coded Allergies Type Severity Reaction Last Updated Verified No Known Medication Allergies Allergy Unknown 07/10/19 Yes amoxicillin Adverse Reaction Intermediate Nausea and Vomiting 06/21/19 Yes clavulanic acid Adverse Reaction Intermediate Nausea and Vomiting 06/21/19 Yes erythromycin base Adverse Reaction Intermediate Nausea and Vomiting 06/21/19 Yes Vital Signs Vital Signs Date Time Temp Pulse Resp B/P (MAP) Pulse Ox O2 Delivery O2 Flow Rate FiO2 07/11/19 08:00 Room Air 07/11/19 07:00 98.2 55 16 130/60 (83) 96 98.2 Lab Results Laboratory Tests Test 07/10/19 05:10 White Blood Count 4.8 x10^3/uL (4.0-11.0) Red Blood Count 3.84 x10^6/uL (3.50-5.40) Hemoglobin 12.5 g/dL (12.0-15.5) Hematocrit 35.6 % (36.0-47.0) Mean Corpuscular Volume 93 fL (79-100) Mean Corpuscular Hemoglobin 33 pg (25-35) Mean Corpuscular Hemoglobin Concent 35 g/dL (31-37) Red Cell Distribution Width 12.1 % (11.5-14.5) Platelet Count 290 x10^3/uL (140-400) Neutrophils (%) (Auto) 62 % (31-73) Lymphocytes (%) (Auto) 30 % (24-48) Monocytes (%) (Auto) 8 % (0-9) Eosinophils (%) (Auto) 0 % (0-3) Basophils (%) (Auto) 1 % (0-3) Neutrophils # (Auto) 3.0 x10^3/uL (1.8-7.7) Lymphocytes # (Auto) 1.4 x10^3/uL (1.0-4.8) Monocytes # (Auto) 0.4 x10^3/uL (0.0-1.1) Eosinophils # (Auto) 0.0 x10^3/uL (0.0-0.7) Basophils # (Auto) 0.0 x10^3/uL (0.0-0.2) Sodium Level 136 mmol/L (136-145) Potassium Level 3.4 mmol/L (3.5-5.1) Chloride Level 102 mmol/L (98-107) Carbon Dioxide Level 23 mmol/L (21-32) Anion Gap 11 (6-14) Blood Urea Nitrogen 5 mg/dL (7-20) Creatinine 0.8 mg/dL (0.6-1.0) Estimated GFR (Cockcroft-Gault) 78.7 Glucose Level 83 mg/dL (70-99) Calcium Level 8.3 mg/dL (8.5-10.1) Brief Hospital Course Ms. Contreras is a 44 old female, admit with nausea and vomiting, recent colon cancer surg 2 weeks ago, symptom management done, she felt improved at 2 days. cont current follow with Dr. Sin, to see Dr. Osborne for chemo plans Discharge Information Condition at Discharge: Improved Follow Up: Weeks Disposition/Orders: D/C to Home Scheduled Budesonide/Formoterol Fumarate (Symbicort 160-4.5 Mcg Inhaler) 10.2 Gm Hfa.aer.ad, 1 PUFF IH DAILY for ASTHMA, (Reported) Entered as Reported by: BRANDT BIRD on 06/09/19 0650 Cetirizine Hcl (Zyrtec) 10 Mg Tablet, 10 MG PO DAILY for ASTHMA, (Reported) Entered as Reported by: BRANDT BIRD on 06/09/19 0650 Fluticasone Propionate (Flonase Allergy Relief) 9.9 Ml [place].susp, 1 SPRAYS NS DAILY for allergy control, (Reported) Entered as Reported by: PRIYANKA CHENG on 06/18/19 1406 Ondansetron Hcl (Zofran) 4 Mg Tablet, 1 TAB PO Q8HRS for nausea and vomiting, #10 Prescribed by: ANDREI ST on 07/11/19 1013 Pantoprazole Sodium (Protonix ) 40 Mg Tablet.dr, 40 MG PO DAILYAC for GERD for 30 Days, #30 Prescribed by: ANDREI ST on 07/11/19 1013 Scheduled PRN Albuterol Sulfate (Proair Hfa) 8.5 Gm Hfa.aer.ad, 1 PUFF INH PRN Q6HRS PRN for SHORTNESS OF BREATH, (Reported) Entered as Reported by: BRANDT BIRD on 06/09/19 0650 Patient Instructions Patient Instructions > 30 min face to face done ANDREI ST MD Jul 11, 2019 15:18
[2019-07-11] MEDS ORDERED: POLYETHYLENE GLYCOL 3350 17 GM PACKET. PO SCH (21:00)
== END 2019-07-11 11:20 | disposition home or self-care (01) | DRG 392 ==
LOC: ER 05:48 → 4 NORTH 09:29
PROVIDERS: ADMIT Family Medicine; ATTEND Family Medicine
DX: A08.4 Viral intestinal infection, unspecified (principal); E03.9 Hypothyroidism, unspecified; E87.6 Hypokalemia; J45.909 Unspecified asthma, uncomplicated; K21.9 Gastro-esophageal reflux disease without esophagitis; K42.9 Umbilical hernia without obstruction or gangrene; K44.9 Diaphragmatic hernia without obstruction or gangrene; K57.30 Diverticulosis of large intestine without perforation or abscess without bleeding; Z85.038 Personal history of other malignant neoplasm of large intestine; Z90.49 Acquired absence of other specified parts of digestive tract; Z98.51 Tubal ligation status
CPT/HCPCS: 36415; 74177; 80048; 80053; 81001; 83690; 84436; 84443; 85025; 96361; 96374; 96375; C9113; J0780; J1200; J1650; J2405; J2765; J3480; J7030; Q0162; Q9966; Q9967; 99285-25; G0378

== ENCOUNTER → 2019-07-16 | Outpatient (CLI) | payer OTHER ==
[2019-07-11 07:00] VITALS: BP 130/60
[~2019-07-16] MED LIST changes: +IOHEXOL 300 MG/ML 100ML VIAL. IV ONE; +ONDA4TAB7 PO; +PANT40TA77 PO
--- NOTE | 2019-07-16 15:48 | RAD ---
CT the chest with IV contrast and without comparison for malignant neoplasm of the colon. TECHNIQUE: Contiguous helical 5 mm axial images are obtained from the thoracic inlet to the base of diaphragm following administration of IV contrast. Sagittal and coronal reformations are evaluated. FINDINGS: There are innumerable tiny 1-3 mm randomly distributed lung nodules. These are most likely not malignant given their uniform small size and multiplicity, but warrants surveillance in the current clinical context. The right middle lobe on axial series 2 image #47, there is a small mixed nodule measuring 5 mm in diameter in the right lower lobe on axial series #2, image 38, there is a 8 mm pleural-based mixed nodule which also is likely infectious or inflammatory but warrants surveillance. In the right upper lobe there is a very small area of groundglass opacification peripherally with some associated tree-in-bud nodularity which may represent a focal area of infectious or inflammatory bronchiolitis. This is seen on axial series #2 images 17 through 20. No suspicious mediastinal, hilar, or axillary adenopathy is seen. There is a calcified hilar lymph node consistent with antecedent granulomatous disease. Heart size within normal limits. Visualized upper abdominal organs are grossly unremarkable. IMPRESSION: 1. No compelling CT evidence of metastatic disease. There are innumerable tiny randomly distributed lung nodules. Given their uniformity and multiplicity, and association with calcified right hilar adenopathy, these are almost certainly granulomatous. Nevertheless, in the current clinical context, CT surveillance is warranted. 2. 5 mm mixed nodule in the right middle lung and 8 mm pleural-based mixed nodule in the right lower lung. Follow-up CT scan in 3 months is recommended. 3. Focal area of groundglass opacification and tree-in-bud changes in the right upper lobe anteriorly most likely due to infectious or inflammatory bronchiolitis. PQRS Compliance Statement: One or more of the following individualized dose reduction techniques were utilized for this examination: 1. Automated exposure control 2. Adjustment of the mA and/or kV according to patient size 3. Use of iterative reconstruction technique Electronically signed by: Zia Hernandez MD (07/16/2019 3:45 PM) [facility]
== END | disposition home or self-care (01) ==
LOC: CT 14:53
PROVIDERS: ATTEND Internal Medicine Hematology & Oncology
DX: C18.7 Malignant neoplasm of sigmoid colon (principal); R91.8 Other nonspecific abnormal finding of lung field; R59.0 Localized enlarged lymph nodes
CPT/HCPCS: 71260; Q9967

== ENCOUNTER 2019-07-22 06:25 | Day surgery (SDC) | payer OTHER ==
[~2019-07-22] VITALS: Ht 172.7 cm; Wt 62.5 kg
[~2019-07-22 06:25] MED LIST changes: -CETI10TA22 PO; +CETI10TA24 PO; -IOHEXOL 300 MG/ML 100ML VIAL. IV ONE
[2019-07-22] MEDS ORDERED: IV RINGERS,LACTATED 1000ML 1,000 ML IV SCH (07:00)
[2019-07-22] MEDS ORDERED: fentaNYL PF VIAL 100 MCG/2 ML VIAL IV PRN ×2 (07:00)
[2019-07-22] MEDS ORDERED: PROCHLORPERAZINE 10 MG/2 ML VIAL. IV PRN (07:00)
[2019-07-22] MEDS ORDERED: ONDANSETRON PF 4 MG/2 ML VIAL. IV PRN (07:00)
[2019-07-22] MEDS ORDERED: BUPIVACAINE MPF 0.25% 30 ML VIAL. ONE (07:24)
[2019-07-22] MEDS ORDERED: HEPARIN PF 500 UNIT/5 ML DISP.SYRIN. ONE ×2 (07:24)
[2019-07-22] MEDS ORDERED: HEPARIN for IV BOLUS 10,000 UNIT/10 ML VIAL. ONE (07:24)
[2019-07-22] MEDS ORDERED: MIDAZOLAM HCL/PF 2 MG/2 ML VIAL. ONE (07:46)
[2019-07-22] MEDS ORDERED: SEVOFLURANE 31 TO 60 MINUTES. IH ONE (07:46)
[2019-07-22] MEDS ORDERED: PROPOFOL 20 ML IV ONE (07:46)
[2019-07-22] MEDS ORDERED: ONDANSETRON PF 4 MG/2 ML VIAL. ONE (07:46)
[2019-07-22] MEDS ORDERED: DEXAMETHASONE SOD PHOS 4 MG/ML VIAL ONE (07:46)
[2019-07-22] MEDS ORDERED: LIDOCAINE 2% PF 5 ML VIAL. ONE (07:47)
--- NOTE | 2019-07-22 09:08 | PDOC4 ---
Operative Note Operative Note Date: 07/22/2019 Preoperative diagnosis: Colon cancer Postoperative diagnosis: Same Procedure: Port-A-Cath placement left side Specimen: None Surgeon: Merrick Dictation: Patient is 44-year-old female recently underwent sigmoid colon resection for a nearly obstructing colon mass she is needing long-term venous access for IV chemotherapy. Procedure of Port-A-Cath placement was explained to the patient in detail risk benefits were also discussed including bleeding infection as well as pneumothorax alternatives to this procedure also discussed with the patient who seemed to understand and gave both verbal and written consent to have the procedure performed. Patient was taken to the operating room placed in supine position general anesthesia was initiated once patient was sleep and intubated her neck and chest were prepped and draped usual sterile fashion using ChloraPrep. An area on the left chest in the deltopectoral groove was injected with quarter percent Marcaine with epinephrine incision was made with 11 blade scalpel. This was carried down through the subcutaneous tissue u sing electrocautery to provide hemostasis. The cephalic vein was visualized and controlled proximally distally with Vicryl suture. The vein was partially opened with 11 blade scalpel and a Salinger wire was placed under fluoroscopy into the superior vena cava. Peel-away dilator was then also placed over the wire under fluoroscopy. Dilator was removed catheter was placed through the peel-away below was then removed the port was placed on the back end of the catheter pocket was propagated the subcutaneous space on the left anterior chest and the port was sewn into place with 3-0 Prolene. Port was accessed there is good return of blood flow is easily flushed was then locked with 2 mL of 1000 units per mill of heparin. Wound was then closed in 2 layers deep layer running 3-0 Vicryl and skin was approximate for septic and a Monocryl Mastisol Steri-Strips and island dressings were applied. Patient was awakened and extubated in the operating room taken to recovery in stable condition all sponge instrument needle counts listed as correct estimated blood loss 5 mL ANDRES RIVERA MD Jul 22, 2019 09:08
--- NOTE | 2019-07-22 09:15 | DISCH ---
DISCHARGE INSTRUCTIONS Condition on Discharge Condition on Discharge: Stable Activity After Discharge Activity Instructions for Disc: Activity as tolerated Diet after Discharge Diet after Discharge: Regular Diet Texture: Regular Liquid Texture: Thin Liquid Wound Incision Care Other wound/incision instructi: Jessica shower in 24 hours Contacting the after DC Call your doctor for: If your condition worsens Follow-Up Follow up with: Dr. Rivera in 2 weeks ANDRES RIVERA MD Jul 22, 2019 09:15
[2019-07-22 09:35] VITALS: BP 114/68
[2019-07-22] MEDS ORDERED: HYDROcodone/APAP 5/325MG 1 TAB TABLET PO ONE (09:45)
== END 2019-07-22 09:55 | disposition home or self-care (01) ==
LOC: SURG 06:25
PROVIDERS: ATTEND Surgery
DX: Z45.2 Encounter for adjustment and management of vascular access device (principal); C18.9 Malignant neoplasm of colon, unspecified; J45.909 Unspecified asthma, uncomplicated; K21.9 Gastro-esophageal reflux disease without esophagitis; K57.30 Diverticulosis of large intestine without perforation or abscess without bleeding; Z90.49 Acquired absence of other specified parts of digestive tract; Z98.51 Tubal ligation status; Z72.89 Other problems related to lifestyle
CPT/HCPCS: 36561; 77001; 81025; C1788; J0690; J1100; J1644; J2001; J2250; J2405; J2704; J3490; 36556

== ENCOUNTER → 2019-07-26 | Outpatient (CLI) | payer OTHER ==
[2019-07-22 09:35] VITALS: BP 114/68
[2019-07-26 10:51] LABS: BASO % 1 % (0-3); EOS % 1 % (0-3); HEMATOCRIT 40.5 % (36.0-47.0); HEMOGLOBIN 13.6 g/dL (12.0-15.5); LYMPH # 1.5 x10^3/uL (1.0-4.8); LYMPH % 30 % (24-48); MEAN CORPUSCULAR HEMOGLOBIN 32 pg (25-35); MEAN CORPUSCULAR HGB CONC 34 g/dL (31-37); MEAN CORPUSCULAR VOLUME 96 fL (79-100); MONO # 0.3 x10^3/uL (0.0-1.1); MONO % 6 % (0-9); NEUT # 3.1 x10^3/uL (1.8-7.7); NEUT % 63 % (31-73); PLATELET COUNT 222 x10^3/uL (140-400); RED BLOOD COUNT 4.23 x10^6/uL (3.50-5.40); RED CELL DISTRIBUTION WIDTH 12.9 % (11.5-14.5)
[2019-07-26 11:02] LABS: ALBUMIN 4.1 g/dL (3.4-5.0); ALBUMIN/GLOBULIN RATIO 1.4 (1.0-1.7); CALCIUM 8.8 mg/dL (8.5-10.1); CREATININE 0.9 mg/dL (0.6-1.0); GFR 68.7; POTASSIUM 3.7 mmol/L (3.5-5.1); TOTAL BILIRUBIN 0.7 mg/dL (0.2-1.0); TOTAL PROTEIN 7.1 g/dL (6.4-8.2)
== END | disposition home or self-care (01) ==
LOC: LAB 10:32
PROVIDERS: ATTEND Internal Medicine Hematology & Oncology
DX: C18.7 Malignant neoplasm of sigmoid colon (principal)
CPT/HCPCS: 36415; 80053; 82378; 85025

== ENCOUNTER → 2019-08-09 | Outpatient (CLI) | payer OTHER ==
[2019-07-27 14:13] VITALS: BP 104/62
[2019-08-09 08:59] LABS: BASO % 1 % (0-3); EOS % 2 % (0-3); HEMATOCRIT 40.8 % (36.0-47.0); HEMOGLOBIN 13.9 g/dL (12.0-15.5); LYMPH # 1.2 x10^3/uL (1.0-4.8); LYMPH % 43 % (24-48); MEAN CORPUSCULAR HEMOGLOBIN 32 pg (25-35); MEAN CORPUSCULAR HGB CONC 34 g/dL (31-37); MEAN CORPUSCULAR VOLUME 95 fL (79-100); MONO # 0.2 x10^3/uL (0.0-1.1); MONO % 9 % (0-9); NEUT # 1.2 x10^3/uL (1.8-7.7); NEUT % 45 % (31-73); PLATELET COUNT 209 x10^3/uL (140-400); RED BLOOD COUNT 4.28 x10^6/uL (3.50-5.40); RED CELL DISTRIBUTION WIDTH 13.1 % (11.5-14.5); WHITE BLOOD COUNT 2.7 x10^3/uL (4.0-11.0)
[2019-08-09 09:15] LABS: ALBUMIN 4.1 g/dL (3.4-5.0); ALBUMIN/GLOBULIN RATIO 1.4 (1.0-1.7); CREATININE 0.8 mg/dL (0.6-1.0); GFR 78.7; POTASSIUM 3.7 mmol/L (3.5-5.1); TOTAL BILIRUBIN 0.4 mg/dL (0.2-1.0)
== END | disposition home or self-care (01) ==
LOC: LAB 08:26
PROVIDERS: ATTEND Nurse Practitioner Adult Health
DX: C18.7 Malignant neoplasm of sigmoid colon (principal)
CPT/HCPCS: 36415; 80053; 82378; 85025

== ENCOUNTER → 2020-01-11 | Outpatient (CLI) | payer OTHER ==
[2020-01-04 15:17] VITALS: BP 111/56
[2020-01-11 15:04] LABS: BASO % 1 % (0-3); EOS % 1 % (0-3); HEMATOCRIT 29.4 % (36.0-47.0); HEMOGLOBIN 9.9 g/dL (12.0-15.5); LYMPH # 0.9 x10^3/uL (1.0-4.8); LYMPH % 42 % (24-48); MEAN CORPUSCULAR HEMOGLOBIN 35 pg (25-35); MEAN CORPUSCULAR HGB CONC 34 g/dL (31-37); MEAN CORPUSCULAR VOLUME 103 fL (79-100); MONO # 0.2 x10^3/uL (0.0-1.1); MONO % 11 % (0-9); NEUT % 46 % (31-73); PLATELET COUNT 90 x10^3/uL (140-400); RED BLOOD COUNT 2.86 x10^6/uL (3.50-5.40); RED CELL DISTRIBUTION WIDTH 18.7 % (11.5-14.5); WHITE BLOOD COUNT 2.2 x10^3/uL (4.0-11.0)
[2020-01-11 15:17] LABS: CALCIUM 8.6 mg/dL (8.5-10.1); CREATININE 0.9 mg/dL (0.6-1.0); GFR 68.3; POTASSIUM 3.8 mmol/L (3.5-5.1)
[2020-01-11 15:24] LABS: ALBUMIN 3.7 g/dL (3.4-5.0); DIRECT BILIRUBIN 0.1 mg/dL (0.0-0.2); TOTAL BILIRUBIN 0.5 mg/dL (0.2-1.0); TOTAL PROTEIN 7.1 g/dL (6.4-8.2)
== END | disposition home or self-care (01) ==
LOC: SPEC 13:45
PROVIDERS: ATTEND Physician Assistant
DX: C18.7 Malignant neoplasm of sigmoid colon (principal)
CPT/HCPCS: 36415; 80048; 80076; 83615; 85025

== ENCOUNTER → 2020-01-18 | Outpatient (CLI) | payer OTHER ==
[2020-01-04 15:17] VITALS: BP 111/56
[2020-01-18 10:55] LABS: BASO % 0 % (0-3); EOS % 1 % (0-3); HEMATOCRIT 29.9 % (36.0-47.0); HEMOGLOBIN 10.2 g/dL (12.0-15.5); LYMPH # 0.9 x10^3/uL (1.0-4.8); LYMPH % 37 % (24-48); MEAN CORPUSCULAR HEMOGLOBIN 35 pg (25-35); MEAN CORPUSCULAR HGB CONC 34 g/dL (31-37); MEAN CORPUSCULAR VOLUME 103 fL (79-100); MONO # 0.2 x10^3/uL (0.0-1.1); MONO % 8 % (0-9); NEUT # 1.3 x10^3/uL (1.8-7.7); NEUT % 54 % (31-73); PLATELET COUNT 81 x10^3/uL (140-400); RED BLOOD COUNT 2.89 x10^6/uL (3.50-5.40); RED CELL DISTRIBUTION WIDTH 18.8 % (11.5-14.5); WHITE BLOOD COUNT 2.4 x10^3/uL (4.0-11.0)
[2020-01-18 11:08] LABS: CALCIUM 8.2 mg/dL (8.5-10.1); CREATININE 0.8 mg/dL (0.6-1.0); GFR 78.3; POTASSIUM 4.2 mmol/L (3.5-5.1)
[2020-01-18 11:17] LABS: ALBUMIN 3.6 g/dL (3.4-5.0); DIRECT BILIRUBIN 0.2 mg/dL (0.0-0.2); TOTAL BILIRUBIN 0.7 mg/dL (0.2-1.0); TOTAL PROTEIN 6.8 g/dL (6.4-8.2)
== END | disposition home or self-care (01) ==
LOC: ONCLAB 10:18
PROVIDERS: ATTEND Physician Assistant
DX: C18.7 Malignant neoplasm of sigmoid colon (principal)
CPT/HCPCS: 36415; 80048; 80076; 83615; 85025

== ENCOUNTER → 2020-01-21 | Outpatient (CLI) | payer OTHER ==
[2020-01-04 15:17] VITALS: BP 111/56
--- NOTE | 2020-01-21 17:02 | RAD ---
EXAM: PET W CT SKULL TO MIDTHIGH EXAM DATE: 01/21/2020 INDICATION: Reason: ADENOCARCINOMA OF SIGMOID COLON / Spl. Instructions: / History: RADIOPHARMACEUTICAL: 12.85 mCi of F-18 Fluorodeoxyglucose (FDG) I.V. via the right antecubital fossa. TECHNIQUE: Patient weight: 137 pounds. Following at least four-hour fasting, the patient's blood glucose was 94 mg/dl. Approximately 1 hour after administration of FDG, overlapping emission scanning was performed from the orbital meatal line through the pelvis. A low-dose CT was performed for attenuation correction purposes and anatomic localization. Fused images of PET and CT were reviewed. Any standardized uptake values (SUV) reported are maximum values within a volume region of interest, expressed in gm/ml. COMPARISON: Abdomen and pelvis CT with oral and IV contrast of 07/09/2019, chest CT of 07/16/2019. FINDINGS: PET: In the head and neck, no abnormal FDG uptake is apparent. In the chest, numerous tiny pulmonary nodules reported on recent chest CT are redemonstrated, showing no abnormal FDG uptake. The largest is a spiculated 1.1 cm medial superior segment left lower lobe nodule that shows a max SUV of 1.91 (compared with a background FDG uptake of 1.9 to max SUV). Mild diffuse increased uptake in the thoracic esophagus is also identified to max SUV of 2.51. No abnormal uptake in the mediastinal, hilar or axillary lymph nodes. In the abdomen and pelvis, mild diffuse uptake in the proximal stomach to max SUV of 3.28 is present. In addition, there is asymmetric FDG uptake in the right-sided colon to a max SUV of 4.97. Background activity in the liver measures a max SUV of 2.02. No abnormal FDG uptake at the anastomotic sutures in the low rectum. No abnormal FDG uptake in the bones. CT: In the head and neck, no acute findings are appreciated. In the chest, left chest port from a subclavian approach terminates in the cavoatrial junction. There are numerous tiny pulmonary nodules previously mentioned overall appears similar to prior with evaluation limited by respiratory motion artifact. In the abdomen and pelvis, bilateral Essure devices are present and there is a small amount of pelvic free fluid on the right. No liver masses and no abdominal or pelvic adenopathy. Surgical changes from a previous sigmoid colonic resection with anastomosis near the low rectum are present. No evidence of bowel obstruction, perforation or acute inflammation. IMPRESSION: 1. No evidence of local recurrent status post rectosigmoid colonic resection and anastomosis. 2. There is increased uptake in the ascending colon and in the stomach that could reflect inflammation. Second site of malignancy is considered less likely but not confidently excluded. Electronically signed by: Adrianna Lemon MD (01/21/2020 4:59 PM) [id number]
== END | disposition home or self-care (01) ==
LOC: PETSC 10:03
PROVIDERS: ATTEND Internal Medicine Hematology & Oncology
DX: C18.7 Malignant neoplasm of sigmoid colon (principal); R91.8 Other nonspecific abnormal finding of lung field; Z87.891 Personal history of nicotine dependence
CPT/HCPCS: 78815; A9552

== ENCOUNTER → 2020-02-01 | Outpatient (CLI) | payer OTHER ==
[2020-01-04 15:17] VITALS: BP 111/56
[2020-02-01 14:18] LABS: BASO % 1 % (0-3); EOS % 1 % (0-3); HEMATOCRIT 30.6 % (36.0-47.0); HEMOGLOBIN 10.4 g/dL (12.0-15.5); LYMPH # 0.8 x10^3/uL (1.0-4.8); LYMPH % 39 % (24-48); MEAN CORPUSCULAR HEMOGLOBIN 36 pg (25-35); MEAN CORPUSCULAR HGB CONC 34 g/dL (31-37); MEAN CORPUSCULAR VOLUME 105 fL (79-100); MONO # 0.2 x10^3/uL (0.0-1.1); MONO % 8 % (0-9); NEUT # 1.1 x10^3/uL (1.8-7.7); NEUT % 53 % (31-73); PLATELET COUNT 101 x10^3/uL (140-400); RED BLOOD COUNT 2.93 x10^6/uL (3.50-5.40); RED CELL DISTRIBUTION WIDTH 17.3 % (11.5-14.5)
[2020-02-01 14:31] LABS: CREATININE 0.9 mg/dL (0.6-1.0); GFR 68.3; POTASSIUM 3.9 mmol/L (3.5-5.1)
[2020-02-01 14:37] LABS: ALBUMIN 3.6 g/dL (3.4-5.0); DIRECT BILIRUBIN 0.2 mg/dL (0.0-0.2); TOTAL BILIRUBIN 0.7 mg/dL (0.2-1.0); TOTAL PROTEIN 6.9 g/dL (6.4-8.2)
== END | disposition home or self-care (01) ==
LOC: ONCLAB 13:33
PROVIDERS: ATTEND Physician Assistant
DX: C18.7 Malignant neoplasm of sigmoid colon (principal)
CPT/HCPCS: 36415; 80048; 80076; 82306; 82378; 83615; 85025

== ENCOUNTER → 2020-02-15 | Outpatient (CLI) | payer OTHER ==
[2020-01-04 15:17] VITALS: BP 111/56
[2020-02-15 09:04] LABS: BASO % 1 % (0-3); EOS % 1 % (0-3); HEMATOCRIT 35.5 % (36.0-47.0); LYMPH # 1.1 x10^3/uL (1.0-4.8); LYMPH % 29 % (24-48); MEAN CORPUSCULAR HEMOGLOBIN 36 pg (25-35); MEAN CORPUSCULAR HGB CONC 34 g/dL (31-37); MEAN CORPUSCULAR VOLUME 105 fL (79-100); MONO # 0.3 x10^3/uL (0.0-1.1); MONO % 6 % (0-9); NEUT # 2.5 x10^3/uL (1.8-7.7); NEUT % 63 % (31-73); PLATELET COUNT 154 x10^3/uL (140-400); RED BLOOD COUNT 3.37 x10^6/uL (3.50-5.40); RED CELL DISTRIBUTION WIDTH 15.9 % (11.5-14.5); WHITE BLOOD COUNT 3.9 x10^3/uL (4.0-11.0)
[2020-02-15 09:11] LABS: CALCIUM 8.5 mg/dL (8.5-10.1); CREATININE 0.9 mg/dL (0.6-1.0); GFR 68.3; POTASSIUM 3.8 mmol/L (3.5-5.1)
[2020-02-15 09:17] LABS: ALBUMIN 3.7 g/dL (3.4-5.0); ALBUMIN/GLOBULIN RATIO 1.1 (1.0-1.7); TOTAL BILIRUBIN 0.6 mg/dL (0.2-1.0); TOTAL PROTEIN 7.1 g/dL (6.4-8.2)
== END | disposition home or self-care (01) ==
LOC: ONCLAB 08:39
PROVIDERS: ATTEND Internal Medicine Hematology & Oncology
DX: C18.7 Malignant neoplasm of sigmoid colon (principal)
CPT/HCPCS: 36415; 80053; 85025

== ENCOUNTER → 2020-02-29 | Outpatient (CLI) | payer OTHER ==
[2020-01-04 15:17] VITALS: BP 111/56
[~2020-02-29] MED LIST changes: +CAPE500T PO; -CETI10TA24 PO; +CETI10TA74 PO; +CITA10TA8 PO; +GABA300C18 PO; +LORA10CA PO; +ONDA4TAB12 PO; +PROC10TA57 PO; +vitamin d3 PO
[2020-02-29 09:36] LABS: CREATININE 0.9 mg/dL (0.6-1.0); GFR 68.3; POTASSIUM 3.9 mmol/L (3.5-5.1)
[2020-02-29 09:43] LABS: ALBUMIN 3.4 g/dL (3.4-5.0); ALBUMIN/GLOBULIN RATIO 1.2 (1.0-1.7); TOTAL BILIRUBIN 0.5 mg/dL (0.2-1.0); TOTAL PROTEIN 6.3 g/dL (6.4-8.2)
[2020-02-29 09:55] LABS: BASO % 1 % (0-3); EOS # 0.1 x10^3/uL (0.0-0.7); EOS % 2 % (0-3); HEMATOCRIT 31.9 % (36.0-47.0); HEMOGLOBIN 10.9 g/dL (12.0-15.5); LYMPH # 1.3 x10^3/uL (1.0-4.8); LYMPH % 33 % (24-48); MEAN CORPUSCULAR HEMOGLOBIN 35 pg (25-35); MEAN CORPUSCULAR HGB CONC 34 g/dL (31-37); MEAN CORPUSCULAR VOLUME 104 fL (79-100); MONO # 0.2 x10^3/uL (0.0-1.1); MONO % 7 % (0-9); NEUT # 2.2 x10^3/uL (1.8-7.7); NEUT % 58 % (31-73); PLATELET COUNT 146 x10^3/uL (140-400); RED BLOOD COUNT 3.08 x10^6/uL (3.50-5.40); RED CELL DISTRIBUTION WIDTH 14.2 % (11.5-14.5); WHITE BLOOD COUNT 3.8 x10^3/uL (4.0-11.0)
== END | disposition home or self-care (01) ==
LOC: ONCLAB 08:55
PROVIDERS: ATTEND Internal Medicine Hematology & Oncology
DX: C18.7 Malignant neoplasm of sigmoid colon (principal)
CPT/HCPCS: 36415; 80053; 85025

== ENCOUNTER → 2020-03-21 | Outpatient (CLI) | payer OTHER ==
[2020-01-04 15:17] VITALS: BP 111/56
[~2020-03-21] MED LIST changes: +CETI10TA24 PO; -CETI10TA74 PO
[2020-03-21 14:22] LABS: BASO % 0 % (0-3); EOS % 1 % (0-3); HEMATOCRIT 34.9 % (36.0-47.0); HEMOGLOBIN 12.2 g/dL (12.0-15.5); LYMPH # 1.3 x10^3/uL (1.0-4.8); LYMPH % 26 % (24-48); MEAN CORPUSCULAR HEMOGLOBIN 36 pg (25-35); MEAN CORPUSCULAR HGB CONC 35 g/dL (31-37); MEAN CORPUSCULAR VOLUME 102 fL (79-100); MONO # 0.3 x10^3/uL (0.0-1.1); MONO % 7 % (0-9); NEUT # 3.2 x10^3/uL (1.8-7.7); NEUT % 67 % (31-73); PLATELET COUNT 186 x10^3/uL (140-400); RED BLOOD COUNT 3.41 x10^6/uL (3.50-5.40); RED CELL DISTRIBUTION WIDTH 14.9 % (11.5-14.5); WHITE BLOOD COUNT 4.9 x10^3/uL (4.0-11.0)
[2020-03-21 14:25] LABS: CALCIUM 8.1 mg/dL (8.5-10.1); CREATININE 1.2 mg/dL (0.6-1.0); POTASSIUM 3.9 mmol/L (3.5-5.1)
[2020-03-21 14:31] LABS: ALBUMIN 3.6 g/dL (3.4-5.0); ALBUMIN/GLOBULIN RATIO 1.1 (1.0-1.7); TOTAL BILIRUBIN 0.7 mg/dL (0.2-1.0); TOTAL PROTEIN 6.9 g/dL (6.4-8.2)
== END | disposition home or self-care (01) ==
LOC: ONCLAB 13:23
PROVIDERS: ATTEND Internal Medicine Hematology & Oncology
DX: C18.7 Malignant neoplasm of sigmoid colon (principal)
CPT/HCPCS: 36415; 80053; 82378; 85025

== ENCOUNTER 2020-03-24 06:45 | Outpatient (CLI) | payer OTHER ==
[2020-03-24] VITALS (12 sets, daily range): BP systolic 100–122; BP diastolic 57–77
[~2020-03-24] VITALS: Ht 172.7 cm; Wt 66.7 kg
[~2020-03-24 06:45] MED LIST changes: -CAPE500T PO; -CETI10TA24 PO; +CETI10TA74 PO; -CITA10TA8 PO; -GABA300C18 PO; -LORA10CA PO; -ONDA4TAB12 PO; -PROC10TA57 PO; -vitamin d3 PO
[2020-03-24] MEDS ORDERED: GELATIN SPONGE SIZE 12-7MM SPONGE. ONE (08:07)
[2020-03-24] MEDS ORDERED: LIDOCAINE WITH 8.4% SOD BICARB 3 ML DISP.SYRIN. ONE (08:07)
[2020-03-24] MEDS ORDERED: fentaNYL PF VIAL 100 MCG/2 ML VIAL ONE (08:13)
[2020-03-24] MEDS ORDERED: MIDAZOLAM HCL/PF 2 MG/2 ML VIAL. ONE (08:13)
[2020-03-24 08:16] LABS: PROTHROMBIN TIME PATIENT 13.4 SEC (11.7-14.0)
[2020-03-24] MEDS ORDERED: ONDA4TAB12 PO (08:16)
[2020-03-24] MEDS ORDERED: CAPE500T PO (08:16)
[2020-03-24] MEDS ORDERED: GABA300C18 PO (08:16)
[2020-03-24] MEDS ORDERED: CITA10TA8 PO (08:16)
[2020-03-24] MEDS ORDERED: vitamin d3 PO (08:16)
[2020-03-24] MEDS ORDERED: LORA10CA PO (08:16)
[2020-03-24] MEDS ORDERED: PROC10TA57 PO (08:16)
[2020-03-24] MEDS ORDERED: LIDOCAINE WITH 8.4% SOD BICARB 3 ML DISP.SYRIN. IJ ONE (08:30)
[2020-03-24] MEDS ORDERED: fentaNYL PF VIAL 100 MCG/2 ML VIAL IV ONE (08:30)
[2020-03-24] MEDS ORDERED: MIDAZOLAM HCL/PF 2 MG/2 ML VIAL. IV ONE (08:30)
[2020-03-24] MEDS ORDERED: GELATIN SPONGE SIZE 12-7MM SPONGE. TP ONE (08:30)
--- NOTE | 2020-03-24 10:55 | NUR ---
Discharge Note: ROMELIA MONTIEL Discharge instructions and discharge home medications reviewed with Patient and spouse,and a copy given. All questions have been answered and understanding verbalized. The following instructions and handouts were given: Moderate Sedation and Liver biopsy. Discontinued lines and drains: left chest port deaccessed and bandaid placed. Patient discharged to home with via personal vehicle.
--- NOTE | 2020-03-24 11:35 | RAD ---
CT-guided biopsy, right hepatic lobe 03/24/2020 INDICATION: Patient is a 45-year-old female with history of colorectal cancer. Recent CT imaging demonstrated an ill-defined mass in the anterior right liver adjacent to the gallbladder fossa. A smaller 4 mm lesion is seen in the dome of the right liver. Imaging characteristics are nonspecific. Biopsy requested by patient's oncologist. 03/24/2020 9:30 AM Procedure: Clinical Indication: LIVER MASS Discussion: The procedure was explained in its entirety to the patient or the patients designated customer account representative by a member of the treatment team, including a discussion of the risks, benefits and commonly accepted alternatives to the procedure, as well as the expected consequences of no therapy whatsoever. Discussion of the risks included, but was not limited to, those that are most frequent and those that are rare but possibly severe or life-threatening, as well as the possibility of unforeseen complications. Given the relative obscurity on prior imaging, specifically discussed with this patient with possible inability to visualize the lesion on noncontrast enhanced CT, or ultrasound. If so, she She elects to continue with a image guided biopsy, based on CT/ultrasound and/or anatomic landmarks. All elements of maximal sterile barrier technique including the use of a cap, mask, sterile gown, sterile gloves, large sterile sheet, appropriate hand hygiene, and 2% chlorhexidine for cutaneous antisepsis (or acceptable alternative antiseptic per current guidelines) were followed for this procedure. 1% lidocaine was administered for local anesthesia. Lesion was in fact nonvisualized with ultrasound and CT. Under intermittent CT guidance a 17-gauge needle was advanced to the targeted area. Core biopsies were obtained. Gelfoam embolization of the biopsy tract was performed as a guiding needle was removed. Manual pressure was held. Repeat imaging demonstrates expected postbiopsy changes without evidence of hemorrhage or other complication. The patient remained hemodynamically stable tolerated the procedure well. The procedures performed under conscious sedation including continuous cardiopulmonary monitoring via dedicated sedation nurse. [id number] sedation time: 20 minutes Impression: CT-guided biopsy, anterior right liver in the area of previously demonstrated lesion
--- NOTE | 2020-03-30 15:07 | PATHOLOGY ---
[facility] Accession Number: [id number] . 01 Material submitted: . liver - LIVER BIOPSY . 01 Clinical history: . HISTORY OF PT4A ADENOCARCINOMA OF THE SIGMOID COLON IN MAY OF 2019. NOW WITH AN ILL-DEFINED MASS IN THE ANTERIOR RIGHT LIVER ADJACENT TO THE GALLBLADDER FOSSA AND A 4 MM LESION IN THE DOME OF THE RIGHT LOBE OF THE LIVER. . 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 - Mild, nonspecific lobular hepatitis. - Minimal steatosis (less than 5%). - Focal Kupffer cell siderosis. - Negative for primary or metastatic neoplasm. - Please see comment. ([facility] 03/30/2020) [facility] 03/30/2020 1416 Local . 02 Comment: The liver biopsy fails to identify a neoplastic process. The hepatic architecture is somewhat altered, showing a subtle nodular appearance to the parenchyma with adjacent areas of hepatic plate atrophy. 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 NRH has been linked to rheumatologic diseases, pro-thrombotic conditions, and also malignant neoplasms. Please correlate clinically. . ([facility] 03/30/2020) . 02 Electronically signed: . Carlene Marsh MD, Pathologist NPI- [id number] . 01 Gross description: . Received in formalin labeled "Indu Contreras, liver biopsy" is a cylindrical core of red-brown soft tissue measuring 1.8 cm in length and 0.1 cm in diameter. The specimen is submitted entirely in cassette A1. [place] [facility] 03/24/2020 1755 Local . 02 Microscopic: . A needle biopsy of the liver is available for review. There is no evidence of primary or metastatic carcinoma. The portal tracts are small and devoid of inflammation. Bile ducts are seen in the portal tracts examined. There does appear to be some focal parenchymal loss, as portal tracts are quite close to one another and close to some terminal hepatic venules. . The hepatic parenchyma shows focal sinusoidal inflammation, which is primarily lymphocytic in nature. There are areas of sinusoidal dilatation and congestion in zone 3 locations. There is focal, very minimal, steatosis (less than 5%). . The trichrome stain fails to identify significant fibrous connective tissue deposition. The reticulin stain shows an intact hepatic reticulin framework pattern. Hepatic plates in some area are irregularly thickened (less than 3 cells in thickness), forming subtle nodular areas. The nodules are flanked by atrophic plates with somewhat collapsed reticulin, suggestive of nodular regenerative hyperplasia. The PAS stain shows glycogen within hepatic nuclei. The PASD stain shows scattered ceroid laden Kupffer cells. The iron stain shows focal Kupffer cell siderosis. ([facility]; 03/30/2020) . 02 Pathologist provided ICD-10: K75.9, K76.0 . 02 CPT . 055716, 075419, 299239, 203951, [id number], [id number] Specimen Comment: A courtesy copy of this report has been sent to [phone] Specimen Comment: [phone], Specimen Comment: Report sent to ,DR CARDONA / DR YAÑEZ Performed at: 01 [facility] [address], [place] [id number] MD Miguel Angel Radford MD Phone: [phone] Performed at: 02 [facility] [address] [place], [place] [id number] MD Maximus Chahal MD Phone: [phone]
== END 2020-03-24 11:01 | disposition home or self-care (01) ==
LOC: INTRAD 06:45
PROVIDERS: ATTEND Internal Medicine Hematology & Oncology
DX: R16.0 Hepatomegaly, not elsewhere classified (principal); Z85.048 Personal history of other malignant neoplasm of rectum, rectosigmoid junction, and anus; Z79.899 Other long term (current) drug therapy; Z79.01 Long term (current) use of anticoagulants; Z87.891 Personal history of nicotine dependence; Z88.8 Allergy status to other drugs, medicaments and biological substances; Z98.890 Other specified postprocedural states
CPT/HCPCS: 36415; 47000; 77012; 85610; 85730; 99152; J2250; J3010; J3490; 88307; 88313

== ENCOUNTER → 2020-04-11 | Outpatient (CLI) | payer OTHER ==
[2020-03-24 10:30] VITALS: BP 106/62
[~2020-04-11] MED LIST changes: +CAPE500T PO; +CITA10TA8 PO; +GABA300C18 PO; +LORA10CA PO; +ONDA4TAB12 PO; +PROC10TA57 PO; +vitamin d3 PO
[2020-04-11 10:54] LABS: BASO % 1 % (0-3); EOS % 1 % (0-3); HEMATOCRIT 35.9 % (36.0-47.0); HEMOGLOBIN 12.5 g/dL (12.0-15.5); LYMPH # 1.4 x10^3/uL (1.0-4.8); LYMPH % 33 % (24-48); MEAN CORPUSCULAR HEMOGLOBIN 36 pg (25-35); MEAN CORPUSCULAR HGB CONC 35 g/dL (31-37); MEAN CORPUSCULAR VOLUME 103 fL (79-100); MONO # 0.3 x10^3/uL (0.0-1.1); MONO % 7 % (0-9); NEUT # 2.6 x10^3/uL (1.8-7.7); NEUT % 60 % (31-73); PLATELET COUNT 186 x10^3/uL (140-400); RED BLOOD COUNT 3.47 x10^6/uL (3.50-5.40); RED CELL DISTRIBUTION WIDTH 17.8 % (11.5-14.5); WHITE BLOOD COUNT 4.3 x10^3/uL (4.0-11.0)
[2020-04-11 11:05] LABS: CALCIUM 8.7 mg/dL (8.5-10.1); CREATININE 0.9 mg/dL (0.6-1.0); GFR 68.3; POTASSIUM 3.8 mmol/L (3.5-5.1)
[2020-04-11 11:10] LABS: ALBUMIN 3.8 g/dL (3.4-5.0); ALBUMIN/GLOBULIN RATIO 1.2 (1.0-1.7); TOTAL BILIRUBIN 1.1 mg/dL (0.2-1.0); TOTAL PROTEIN 6.9 g/dL (6.4-8.2)
== END | disposition home or self-care (01) ==
LOC: ONCLAB 10:35
PROVIDERS: ATTEND Internal Medicine Hematology & Oncology
DX: C18.7 Malignant neoplasm of sigmoid colon (principal)
CPT/HCPCS: 36415; 80053; 82378; 85025

== ENCOUNTER → 2020-05-02 | Outpatient (CLI) | payer OTHER ==
[2020-03-24 10:30] VITALS: BP 106/62
[2020-05-02 10:47] LABS: BASO % 1 % (0-3); EOS # 0.1 x10^3/uL (0.0-0.7); EOS % 1 % (0-3); HEMATOCRIT 36.3 % (36.0-47.0); HEMOGLOBIN 12.7 g/dL (12.0-15.5); LYMPH # 1.2 x10^3/uL (1.0-4.8); LYMPH % 28 % (24-48); MEAN CORPUSCULAR HEMOGLOBIN 37 pg (25-35); MEAN CORPUSCULAR HGB CONC 35 g/dL (31-37); MEAN CORPUSCULAR VOLUME 104 fL (79-100); MONO # 0.3 x10^3/uL (0.0-1.1); MONO % 7 % (0-9); NEUT # 2.8 x10^3/uL (1.8-7.7); NEUT % 64 % (31-73); PLATELET COUNT 190 x10^3/uL (140-400); RED BLOOD COUNT 3.49 x10^6/uL (3.50-5.40); RED CELL DISTRIBUTION WIDTH 19.8 % (11.5-14.5); WHITE BLOOD COUNT 4.4 x10^3/uL (4.0-11.0)
[2020-05-02 11:00] LABS: CALCIUM 8.9 mg/dL (8.5-10.1); CREATININE 0.9 mg/dL (0.6-1.0); GFR 68.3; POTASSIUM 3.8 mmol/L (3.5-5.1)
[2020-05-02 11:05] LABS: ALBUMIN 3.8 g/dL (3.4-5.0); ALBUMIN/GLOBULIN RATIO 1.2 (1.0-1.7)
== END ==
LOC: ONCLAB 08:00
PROVIDERS: ATTEND Internal Medicine Hematology & Oncology
DX: C18.7 Malignant neoplasm of sigmoid colon (principal)
CPT/HCPCS: 36415; 80053; 82378; 85025

== ENCOUNTER → 2020-05-23 | Outpatient (CLI) | payer OTHER ==
[2020-03-24 10:30] VITALS: BP 106/62
[2020-05-23 09:59] LABS: BASO % 1 % (0-3); EOS % 1 % (0-3); HEMATOCRIT 36.7 % (36.0-47.0); HEMOGLOBIN 12.9 g/dL (12.0-15.5); LYMPH # 1.3 x10^3/uL (1.0-4.8); LYMPH % 33 % (24-48); MEAN CORPUSCULAR HEMOGLOBIN 37 pg (25-35); MEAN CORPUSCULAR HGB CONC 35 g/dL (31-37); MEAN CORPUSCULAR VOLUME 106 fL (79-100); MONO # 0.2 x10^3/uL (0.0-1.1); MONO % 6 % (0-9); NEUT # 2.4 x10^3/uL (1.8-7.7); NEUT % 59 % (31-73); PLATELET COUNT 200 x10^3/uL (140-400); RED BLOOD COUNT 3.45 x10^6/uL (3.50-5.40); RED CELL DISTRIBUTION WIDTH 19.8 % (11.5-14.5)
[2020-05-23 10:21] LABS: CALCIUM 8.9 mg/dL (8.5-10.1); GFR 60.5; POTASSIUM 4.3 mmol/L (3.5-5.1)
[2020-05-23 10:26] LABS: ALBUMIN 3.7 g/dL (3.4-5.0); ALBUMIN/GLOBULIN RATIO 1.2 (1.0-1.7); TOTAL PROTEIN 6.7 g/dL (6.4-8.2)
== END ==
LOC: ONCLAB 09:48
PROVIDERS: ATTEND Internal Medicine Hematology & Oncology
DX: C18.7 Malignant neoplasm of sigmoid colon (principal)
CPT/HCPCS: 36415; 80053; 82378; 85025

== ENCOUNTER 2020-05-30 06:11 | Emergency (ER) | payer OTHER ==
[~2020-05-30] VITALS: Ht 172.7 cm; Wt 68.1 kg
[2020-05-30] MEDS ORDERED: PROCHLORPERAZINE 10 MG/2 ML VIAL. IV ONE (06:30)
[2020-05-30] MEDS ORDERED: diphenhydrAMINE 50 MG/ML VIAL IVP ONE (06:30)
[2020-05-30] MEDS ORDERED: MORPHINE SULFATE 4 MG/ML VIAL. IV ONE (06:30)
[2020-05-30] MEDS ORDERED: IV NORMAL SALINE 1000ML BAG 1,000 ML IV ONE (06:30)
--- NOTE | 2020-05-30 06:33 | PHYS DOC ---
Past Medical History Past Medical History: Asthma, Other Additional Past Medical Histor: COLON CANCER Past Surgical History: Other Additional Past Surgical Histo: COLON RESECTION Smoking Status: Former Smoker Alcohol Use: Occasionally Drug Use: None General Adult EDM: Chief Complaint: NAUSEA/VOMITING/DIARRHA HPI: HPI: History obtained from patient. Patient is a 42-year-old female with a history of colon cancer status post resection 1 year ago who presents with chief complaint of vomiting. States she has had multiple sets of nonbloody nonbilious vomiting over the past 2 days. She notes she did try her home Zofran with minimal relief. She states she did not try her home Compazine because she did not think should be able to keep it down. She notes she spoke with her oncologist this morning who encouraged to report to the emergency department. She does receive oral chemotherapy 2 weeks on, 1 week off. She states currently she is supposed be taking her chemotherapy medication but her oncologist told her to hold her medicine yesterday due to her vomiting. She does note diffuse umbilical cramping abdominal discomfort. Denies any changes to her stool caliber or consistency. States she is having normal bowel movements and passing flatus. Denies any blood in the stool. Denies urinary symptoms. Denies syncope. Denies fevers. Denies cough, chest pain, or shortness of breath. States she has had nausea and minimal vomiting in the past with chemotherapy but this is worse than she has ever had before. No other complaints. Review of Systems: Review of Systems: Constitutional: Denies fever or chills. [] Eyes: Denies change in visual acuity. [] HENT: Denies nasal congestion or sore throat. [] Respiratory: Denies cough or shortness of breath. [] Cardiovascular: Denies chest pain or edema. [] GI: Positive for abdominal pain, nausea, vomiting : Denies dysuria. [] Musculoskeletal: Denies back pain or joint pain. [] Integument: Denies rash. [] Neurologic: Denies headache, focal weakness or sensory changes. [] Endocrine: Denies polyuria or polydipsia. [] Lymphatic: Denies swollen glands. [] Psychiatric: Denies depression or anxiety. [] Heart Score: Risk Factors: Risk Factors: DM, Current or recent (<one month) smoker, HTN, HLP, family history of CAD, obesity. Risk Scores: Score 0 - 3: 2.5% MACE over next 6 weeks - Discharge Home Score 4 - 6: 20.3% MACE over next 6 weeks - Admit for Clinical Observation Score 7 - 10: 72.7% MACE over next 6 weeks - Early Invasive Strategies Allergies: Allergies: Allergies Coded Allergies Type Severity Reaction Last Updated Verified oxycodone Allergy Intermediate Unknown 01/07/20 Yes amoxicillin Adverse Reaction Intermediate Nausea and Vomiting 01/07/20 Yes clavulanic acid Adverse Reaction Intermediate Nausea and Vomiting 01/07/20 Yes erythromycin base Adverse Reaction Intermediate Nausea and Vomiting 01/07/20 Yes Physical Exam: PE: Constitutional: Well developed, well nourished, no acute distress, non-toxic appearance. [] HENT: Normocephalic, atraumatic, bilateral external ears normal, oropharynx moist, no oral exudates, nose normal. [] Eyes: PERRLA, EOMI, conjunctiva normal, no discharge. [] Neck: Normal range of motion, no tenderness, supple, no stridor. [] Cardiovascular:Heart rate regular rhythm, no murmur [] Lungs & Thorax: Bilateral breath sounds clear to auscultation [] Abdomen: Midline laparotomy scar noted. Well-healed. My abdominal exam Skin: Warm, dry, no erythema, no rash. [] Back: No tenderness, no CVA tenderness. [] Extremities: No tenderness, no cyanosis, no clubbing, ROM intact, no edema. [] Neurologic: Alert and oriented X 3, normal motor function, normal sensory function, no focal deficits noted. [] Psychologic: Affect normal, judgement normal, mood normal. [] Current Patient Data: Labs: Laboratory Tests Test 05/30/20 06:56 White Blood Count 7.5 x10^3/uL Red Blood Count 3.33 x10^6/uL Hemoglobin 12.5 g/dL Hematocrit 34.7 % Mean Corpuscular Volume 104 fL Mean Corpuscular Hemoglobin 38 pg Mean Corpuscular Hemoglobin Concent 36 g/dL Red Cell Distribution Width 18.1 % Platelet Count 200 x10^3/uL Neutrophils (%) (Auto) 85 % Lymphocytes (%) (Auto) 9 % Monocytes (%) (Auto) 6 % Eosinophils (%) (Auto) 0 % Basophils (%) (Auto) 1 % Neutrophils # (Auto) 6.3 x10^3/uL Lymphocytes # (Auto) 0.7 x10^3/uL Monocytes # (Auto) 0.4 x10^3/uL Eosinophils # (Auto) 0.0 x10^3/uL Basophils # (Auto) 0.0 x10^3/uL Sodium Level 138 mmol/L Potassium Level 3.4 mmol/L Chloride Level 101 mmol/L Carbon Dioxide Level 26 mmol/L Anion Gap 11 Blood Urea Nitrogen 15 mg/dL Creatinine 0.8 mg/dL Estimated GFR (Cockcroft-Gault) 78.3 BUN/Creatinine Ratio 19 Glucose Level 125 mg/dL Lactic Acid Level 1.1 mmol/L Calcium Level 8.9 mg/dL Magnesium Level 2.2 mg/dL Total Bilirubin 1.5 mg/dL Aspartate Amino Transf (AST/SGOT) 21 U/L Alanine Aminotransferase (ALT/SGPT) 14 U/L Alkaline Phosphatase 43 U/L Total Protein 7.0 g/dL Albumin 3.8 g/dL Albumin/Globulin Ratio 1.2 Lipase 67 U/L Serum Test, Qualitative Negative Current Medications Medications (Trade) Dose Ordered Sig/Alysia Route PRN Reason Start Time Stop Time Status Last Admin Dose Admin Sodium Chloride 1,000 ml @ 1,000 mls/hr 1X ONCE IV 05/30/20 06:30 05/30/20 07:29 DC 05/30/20 07:04 Prochlorperazine Edisylate (Compazine) 10 mg 1X ONCE IV 05/30/20 06:30 05/30/20 06:33 DC 05/30/20 07:58 Diphenhydramine HCl (Benadryl) 50 mg 1X ONCE IVP 05/30/20 06:30 05/30/20 06:33 DC 05/30/20 07:58 Morphine Sulfate (Morphine Sulfate) 4 mg 1X ONCE IV 05/30/20 06:30 05/30/20 06:33 DC 05/30/20 07:57 Iohexol (Omnipaque 300 Mg/ml) 75 ml 1X ONCE IV 05/30/20 07:00 05/30/20 07:01 DC 05/30/20 07:00 Info (CONTRAST GIVEN -- Rx MONITORING) 1 each PRN DAILY PRN MC SEE COMMENTS 05/30/20 07:00 06/01/20 06:59 Sodium Chloride (NORMAL SALINE FLUSH for STERILE FIELD) 10 ml STK-MED ONCE .ROUTE 05/30/20 06:49 05/30/20 06:50 DC Vital Signs: Vital Signs Date Time Temp Pulse Resp B/P (MAP) Pulse Ox O2 Delivery O2 Flow Rate FiO2 05/30/20 07:57 99 Room Air 05/30/20 06:20 97.0 66 20 141/61 (87) 97 Room Air 97.0 EKG: EKG: [] Radiology/Procedures: Radiology/Procedures: [facility] [address] [place] [address] IMAGING REPORT Signed PATIENT: ROMELIA MONTIEL LACCOUNT: [id number] : 1975 LOCATION: ER AGE: 45 SEX: F EXAM STATUS: REG ER ORD. PHYSICIAN: ANDERS WHITTAKER DO REASON: lower abdominal pain with vomiting. hx colon CA PROCEDURE: CT ABD PELV W/ IV CONTRST ONLY CT ABD PELV W/ IV CONTRST ONLY History: lower abdominal pain with vomiting. hx colon CA Comparison: CT chest abdomen and pelvis 06/16/2020 Technique: After administration of intravenous contrast, helical CT of the abdomen and pelvis was performed from the lung bases through the ischial tuberosities. Coronal and sagittal reconstructions were obtained. 75 mL of Omnipaque 300 were used. One or more of the following dose reduction techniques were utilized: Automated exposure control (AEC), Adjustment of mA and/or kV according to patient size, Use of iterative reconstruction technique such as ASiR, CT scan done according to ALARA and image gently/image wisely Abdomen Findings: Stable small bilateral pulmonary nodules. Moderate abdominal and pelvic free fluid with density of approximately 23 Hounsfield units. Increased size of left adnexal heterogeneous mass measuring 10.0 x 6.8 x 7.4 cm (AP by TV by CC), previously 4.6 x 4.5 x 6.3 cm when measured in the same fashion. The liver, gallbladder, pancreas, and bilateral adrenal glands are normal. Mildly enlarged spleen. Symmetric renal enhancement. There is no focal renal mass. There is no hydronephrosis. The visualized loops of small bowel are normal. Rectosigmoid anastomosis. There is no evidence of bowel obstruction. Appendix is normal. There is no mesenteric or retroperitoneal adenopathy. The abdominal aorta is normal in caliber. Pelvis Findings: Urinary bladder is decompressed. Bilateral Essure tubal closure devices. Uterus is present. There is no pelvic or inguinal adenopathy. There is no acute bony abnormality. IMPRESSION: 1. Increased size of left adnexal mass measuring up to 10 cm, previously 6.3 cm. Moderate abdominal and pelvic fluid with increased density. Findings could relate to primary or metastatic adnexal malignancy, with malignant ascites versus hemoperitoneum. Although patient has tubal closure devices, ruptured ectopic with hemoperitoneum could have a similar appearance and should be considered. Correlate with hCG. 2. Stable small bilateral pulmonary nodules consistent with metastatic disease. Electronically signed by: Noa Montana MD (05/30/2020 8:19 AM) [id number] DICTATED and SIGNED BY: NOA MONTANA MD DATE: 05/30/20 0819 [] Course & Med Decision Making: Course & Med Decision Making Pertinent Labs and Imaging studies reviewed. (See chart for details) [] Patient is a 45-year-old female with a history of colon cancer current receiving oral chemotherapy who presents with chief complaint of nausea and vomi ting over the past 2 days. Initial vital signs unremarkable. Physical exam noted above. CT imaging was obtained and does show nonspecific fluid in the abdomen pelvis. Slight margin of the left adrenal mass. Lab for analysis grossly unremarkable. No signs of neutropenia. On repeat examination her abdomen is benign. She has tolerated p.o. and states she feels much better. I did speak with her oncologist who felt discharge home with close follow-up was appropriate. I do agree with his assessment. I did notify the patient of the CT imaging findings. She does state that she has full prescriptions Zofran and Compazine at home that she does take for nausea. Strict return precautions were discussed and understood. Instructed follow-up with her oncologist in the next 2 to 3 days. Stable for discharge home. I provided verbal discharge instructions regarding their emergency department diagnosis. If you had any diagnostic studies ( Labs or Xray's, CAT scan, Ultrasound ) have your PCP (Primary Care Physician) review them with you since there may be results that require further follow up or investigation. Prognosis, expected clinical course, and return precautions were reviewed. I answered the patients questions and instructed them to return if any new or worsening symptoms develop. The patient expressed understanding of the instructions and reported that all of their questions had been answered. Kvng Disclaimer: Kvng Disclaimer: This electronic medical record was generated, in whole or in part, using a voice recognition dictation system. Departure Departure Impression: Primary Impression: Colon cancer Qualified Codes: C18.9 - Malignant neoplasm of colon, unspecified Additional Impression: Nausea & vomiting Qualified Codes: R11.2 - Nausea with vomiting, unspecified Disposition: 01 DC HOME SELF CARE/HOMELESS Condition: STABLE Referrals: LATESHA CARDONA MD (PCP) BHARATH DANG MD Patient Instructions: Cancer of the Colon, Treatment by Resection, Care After Additional Instructions: Please follow-up with your oncologist in the next 2 to 3 days. ANDERS WHITTAKER DO May 30, 2020 06:33
[2020-05-30] MEDS ORDERED: 0.9 % SOD CHL for STERILE FIELD 10 ML DISP.SYRIN. ONE (06:49)
[2020-05-30] MEDS ORDERED: IOHEXOL 300 MG/ML 100ML VIAL. IV ONE (07:00)
[2020-05-30] MEDS ORDERED: CONTRAST GIVEN. MC PRN (07:00)
[2020-05-30 07:11] LABS: BASO % 1 % (0-3); EOS % 0 % (0-3); HEMATOCRIT 34.7 % (36.0-47.0); HEMOGLOBIN 12.5 g/dL (12.0-15.5); LYMPH # 0.7 x10^3/uL (1.0-4.8); LYMPH % 9 % (24-48); MEAN CORPUSCULAR HEMOGLOBIN 38 pg (25-35); MEAN CORPUSCULAR HGB CONC 36 g/dL (31-37); MEAN CORPUSCULAR VOLUME 104 fL (79-100); MONO # 0.4 x10^3/uL (0.0-1.1); MONO % 6 % (0-9); NEUT # 6.3 x10^3/uL (1.8-7.7); NEUT % 85 % (31-73); PLATELET COUNT 200 x10^3/uL (140-400); RED BLOOD COUNT 3.33 x10^6/uL (3.50-5.40); RED CELL DISTRIBUTION WIDTH 18.1 % (11.5-14.5); WHITE BLOOD COUNT 7.5 x10^3/uL (4.0-11.0)
[2020-05-30 07:31] LABS: PREG TEST PT QUAL NEGATIVE (NEG)
[2020-05-30 07:32] LABS: CALCIUM 8.9 mg/dL (8.5-10.1); CREATININE 0.8 mg/dL (0.6-1.0); GFR 78.3; POTASSIUM 3.4 mmol/L (3.5-5.1)
[2020-05-30 07:37] LABS: ALBUMIN 3.8 g/dL (3.4-5.0); ALBUMIN/GLOBULIN RATIO 1.2 (1.0-1.7); MAGNESIUM 2.2 mg/dL (1.8-2.4); TOTAL BILIRUBIN 1.5 mg/dL (0.2-1.0)
--- NOTE | 2020-05-30 08:22 | RAD ---
CT ABD PELV W/ IV CONTRST ONLY History: lower abdominal pain with vomiting. hx colon CA Comparison: CT chest abdomen and pelvis 06/16/2020 Technique: After administration of intravenous contrast, helical CT of the abdomen and pelvis was performed from the lung bases through the ischial tuberosities. Coronal and sagittal reconstructions were obtained. 75 mL of Omnipaque 300 were used. One or more of the following dose reduction techniques were utilized: Automated exposure control (AEC), Adjustment of mA and/or kV according to patient size, Use of iterative reconstruction technique such as ASiR, CT scan done according to ALARA and image gently/image wisely Abdomen Findings: Stable small bilateral pulmonary nodules. Moderate abdominal and pelvic free fluid with density of approximately 23 Hounsfield units. Increased size of left adnexal heterogeneous mass measuring 10.0 x 6.8 x 7.4 cm (AP by TV by CC), previously 4.6 x 4.5 x 6.3 cm when measured in the same fashion. The liver, gallbladder, pancreas, and bilateral adrenal glands are normal. Mildly enlarged spleen. Symmetric renal enhancement. There is no focal renal mass. There is no hydronephrosis. The visualized loops of small bowel are normal. Rectosigmoid anastomosis. There is no evidence of bowel obstruction. Appendix is normal. There is no mesenteric or retroperitoneal adenopathy. The abdominal aorta is normal in caliber. Pelvis Findings: Urinary bladder is decompressed. Bilateral Essure tubal closure devices. Uterus is present. There is no pelvic or inguinal adenopathy. There is no acute bony abnormality. IMPRESSION: 1. Increased size of left adnexal mass measuring up to 10 cm, previously 6.3 cm. Moderate abdominal and pelvic fluid with increased density. Findings could relate to primary or metastatic adnexal malignancy, with malignant ascites versus hemoperitoneum. Although patient has tubal closure devices, ruptured ectopic with hemoperitoneum could have a similar appearance and should be considered. Correlate with hCG. 2. Stable small bilateral pulmonary nodules consistent with metastatic disease. Electronically signed by: Leandro Montana MD (05/30/2020 8:19 AM) [id number]
[2020-05-30 09:48] LABS: BILIRUBIN,URINE SMALL (NEG); CLARITY,URINE CLEAR; NITRITE,URINE NEGATIVE (NEG); PROTEIN,URINE 30 mg/dL (NEG-TRACE)
[2020-05-30 09:54] LABS: COLOR,URINE YELLOW
[2020-05-30 09:57] LABS: BACTERIA,URINE FEW /HPF (0-FEW)
[2020-05-30 10:24] VITALS: BP 105/57
[2020-05-30] MEDS ORDERED: HEPARIN PF 500 UNIT/5 ML DISP.SYRIN. IVP ONE ×2 (10:32→10:45)
== END 2020-05-30 10:40 | disposition home or self-care (01) ==
LOC: ER 06:11
DX: C18.9 Malignant neoplasm of colon, unspecified (principal); R11.2 Nausea with vomiting, unspecified; J45.909 Unspecified asthma, uncomplicated; Z87.891 Personal history of nicotine dependence; Z98.890 Other specified postprocedural states; Z88.5 Allergy status to narcotic agent; Z88.1 Allergy status to other antibiotic agents; Z88.8 Allergy status to other drugs, medicaments and biological substances
CPT/HCPCS: 36415; 74177; 80053; 81001; 83605; 83690; 83735; 84703; 85025; 96361; 96374; 96375; 99285; J0780; J1200; J1642; J2270; J7030; Q9967

== ENCOUNTER → 2020-06-02 | Outpatient (CLI) | payer OTHER ==
[2020-05-30 10:24] VITALS: BP 105/57
[2020-06-02 10:18] LABS: CREATININE 0.9 mg/dL (0.6-1.0); GFR 68.3; POTASSIUM 3.2 mmol/L (3.5-5.1)
[2020-06-02 10:24] LABS: ALBUMIN/GLOBULIN RATIO 1.4 (1.0-1.7); TOTAL BILIRUBIN 1.4 mg/dL (0.2-1.0); TOTAL PROTEIN 6.8 g/dL (6.4-8.2)
[2020-06-02 10:27] LABS: BASO % 1 % (0-3); EOS % 1 % (0-3); HEMATOCRIT 34.7 % (36.0-47.0); HEMOGLOBIN 12.2 g/dL (12.0-15.5); LYMPH # 1.3 x10^3/uL (1.0-4.8); LYMPH % 28 % (24-48); MEAN CORPUSCULAR HEMOGLOBIN 36 pg (25-35); MEAN CORPUSCULAR HGB CONC 35 g/dL (31-37); MEAN CORPUSCULAR VOLUME 104 fL (79-100); MONO # 0.4 x10^3/uL (0.0-1.1); MONO % 9 % (0-9); NEUT # 2.9 x10^3/uL (1.8-7.7); NEUT % 62 % (31-73); PLATELET COUNT 224 x10^3/uL (140-400); RED BLOOD COUNT 3.35 x10^6/uL (3.50-5.40); RED CELL DISTRIBUTION WIDTH 17.5 % (11.5-14.5); WHITE BLOOD COUNT 4.6 x10^3/uL (4.0-11.0)
== END ==
LOC: ONCLAB 09:52
PROVIDERS: ATTEND Internal Medicine Hematology & Oncology
DX: C18.7 Malignant neoplasm of sigmoid colon (principal)
CPT/HCPCS: 36415; 80053; 85025

== ENCOUNTER → 2020-06-13 | Outpatient (CLI) | payer OTHER ==
[2020-05-30 10:24] VITALS: BP 105/57
[~2020-06-13] MED LIST changes: +HYDR-3164 PO
[2020-06-13 09:55] LABS: BASO % 1 % (0-3); EOS % 0 % (0-3); HEMATOCRIT 36.7 % (36.0-47.0); HEMOGLOBIN 12.6 g/dL (12.0-15.5); LYMPH # 0.8 x10^3/uL (1.0-4.8); LYMPH % 21 % (24-48); MEAN CORPUSCULAR HEMOGLOBIN 37 pg (25-35); MEAN CORPUSCULAR HGB CONC 34 g/dL (31-37); MEAN CORPUSCULAR VOLUME 107 fL (79-100); MONO # 0.3 x10^3/uL (0.0-1.1); MONO % 7 % (0-9); NEUT # 2.8 x10^3/uL (1.8-7.7); NEUT % 71 % (31-73); PLATELET COUNT 251 x10^3/uL (140-400); RED BLOOD COUNT 3.44 x10^6/uL (3.50-5.40); RED CELL DISTRIBUTION WIDTH 16.5 % (11.5-14.5)
[2020-06-13 10:05] LABS: CALCIUM 8.4 mg/dL (8.5-10.1); CREATININE 0.9 mg/dL (0.6-1.0); GFR 68.3; POTASSIUM 4.5 mmol/L (3.5-5.1)
[2020-06-13 10:09] LABS: ALBUMIN 3.6 g/dL (3.4-5.0); ALBUMIN/GLOBULIN RATIO 1.2 (1.0-1.7); TOTAL BILIRUBIN 0.9 mg/dL (0.2-1.0); TOTAL PROTEIN 6.6 g/dL (6.4-8.2)
== END ==
LOC: ONCLAB 09:36
PROVIDERS: ATTEND Internal Medicine Hematology & Oncology
DX: C18.7 Malignant neoplasm of sigmoid colon (principal)
CPT/HCPCS: 36415; 80053; 82378; 85025

== ENCOUNTER 2020-06-17 09:23 | Emergency (ER) | payer OTHER ==
[~2020-06-17] VITALS: Ht 167.6 cm; Wt 67.0 kg
[~2020-06-17 09:23] MED LIST changes: -HYDR-3164 PO
--- NOTE | 2020-06-17 09:52 | PHYS DOC ---
Past Medical History Past Medical History: Asthma, Other Additional Past Medical Histor: COLON CANCER,OVARIAN MASS Past Surgical History: Other Additional Past Surgical Histo: COLON RESECTION Smoking Status: Former Smoker Alcohol Use: Occasionally Drug Use: None General Adult EDM: Chief Complaint: ABDOMINAL PAIN HPI: HPI: History gained from patient. Patient is a 42-year-old female with a history of colon cancer with resection and a left adnexal mass recently discovered who presents with a complaint of abdominal pain. She states she has had intermittent abdominal pain over the past several weeks. She does follow with oncologist Dr. Rivera regarding this nondescript left adnexal mass. She was told when she presented to the emergency department May 30 that the size of the mass has increased by 5 cm. She states that she has been trying to obtain follow-up with BIOLOG[employer]ICAL [employer]ER Dr. Torre but has been unsuccessful. She tried calling them yesterday. She knows she is had intermittent vaginal bleeding over the past few days. Does note small clot passage. Denies lightheadedness or syncope. States she is had vaginal bleeding several weeks ago as well. She states she presents today at the encouragement of her oncologist who felt that this may need to be managed surgically sooner rather than later. States pain is aching in nature. Does report associated nausea. Reports normal bowel movements. She states that pathology has not been performed on this mass today. Unclear etiology. No other complaints. Review of Systems: Review of Systems: Constitutional: Denies fever or chills. [] Eyes: Denies change in visual acuity. [] HENT: Denies nasal congestion or sore throat. [] Respiratory: Denies cough or shortness of breath. [] Cardiovascular: Denies chest pain or edema. [] GI: Positive for abdominal pain and nausea : Denies dysuria. [] Musculoskeletal: Denies back pain or joint pain. [] Integument: Denies rash. [] Neurologic: Denies headache, focal weakness or sensory changes. [] Endocrine: Denies polyuria or polydipsia. [] Lymphatic: Denies swollen glands. [] Psychiatric: Denies depression or anxiety. [] Heart Score: Risk Factors: Risk Factors: DM, Current or recent (<one month) smoker, HTN, HLP, family history of CAD, obesity. Risk Scores: Score 0 - 3: 2.5% MACE over next 6 weeks - Discharge Home Score 4 - 6: 20.3% MACE over next 6 weeks - Admit for Clinical Observation Score 7 - 10: 72.7% MACE over next 6 weeks - Early Invasive Strategies Allergies: Allergies: Allergies Coded Allergies Type Severity Reaction Last Updated Verified oxycodone Allergy Intermediate Unknown 01/07/20 Yes amoxicillin Adverse Reaction Intermediate Nausea and Vomiting 01/07/20 Yes clavulanic acid Adverse Reaction Intermediate Nausea and Vomiting 01/07/20 Yes erythromycin base Adverse Reaction Intermediate Nausea and Vomiting 01/07/20 Yes Physical Exam: PE: Constitutional: Well developed, well nourished, no acute distress, non-toxic appearance. [] HENT: Normocephalic, atraumatic, bilateral external ears normal, oropharynx mois t, no oral exudates, nose normal. [] Eyes: PERRLA, EOMI, conjunctiva normal, no discharge. [] Neck: Normal range of motion, no tenderness, supple, no stridor. [] Cardiovascular:Heart rate regular rhythm, no murmur [] Lungs & Thorax: Bilateral breath sounds clear to auscultation [] Abdomen: Mildly distended abdomen. Localized tenderness in left lower quadrant. Palpable mass noted. No involuntary guarding rigidity appreciated. Skin: Warm, dry, no erythema, no rash. [] Back: No tenderness, no CVA tenderness. [] Extremities: No tenderness, no cyanosis, no clubbing, ROM intact, no edema. [] Neurologic: Alert and oriented X 3, normal motor function, normal sensory function, no focal deficits noted. [] Psychologic: Affect normal, judgement normal, mood normal. [] Current Patient Data: Labs: Laboratory Tests Test 06/17/20 09:32 06/17/20 09:56 06/17/20 12:51 Urine Collection Type Unknown Urine Color Straw Urine Clarity Hazy Urine pH 6.0 Urine Specific [place] >=1.030 Urine Protein 100 mg/dL Urine Glucose (UA) Negative mg/dL Urine Ketones (Stick) >160 mg/dL Urine Blood Large Urine Nitrite Negative Urine Bilirubin Moderate Urine Urobilinogen Dipstick 1.0 mg/dL Urine Leukocyte Esterase Negative Urine RBC 11-20 /HPF Urine WBC Rare /HPF Urine Squamous Epithelial Cells Few /LPF Urine Bacteria Few /HPF Urine Mucus Marked /LPF White Blood Count 5.3 x10^3/uL Red Blood Count 3.30 x10^6/uL Hemoglobin 12.0 g/dL Hematocrit 34.3 % Mean Corpuscular Volume 104 fL Mean Corpuscular Hemoglobin 37 pg Mean Corpuscular Hemoglobin Concent 35 g/dL Red Cell Distribution Width 15.7 % Platelet Count 224 x10^3/uL Neutrophils (%) (Auto) 79 % Lymphocytes (%) (Auto) 13 % Monocytes (%) (Auto) 7 % Eosinophils (%) (Auto) 0 % Basophils (%) (Auto) 1 % Neutrophils # (Auto) 4.2 x10^3/uL Lymphocytes # (Auto) 0.7 x10^3/uL Monocytes # (Auto) 0.4 x10^3/uL Eosinophils # (Auto) 0.0 x10^3/uL Basophils # (Auto) 0.0 x10^3/uL Sodium Level 135 mmol/L Potassium Level 3.5 mmol/L Chloride Level 99 mmol/L Carbon Dioxide Level 25 mmol/L Anion Gap 11 Blood Urea Nitrogen 10 mg/dL Creatinine 0.7 mg/dL Estimated GFR (Cockcroft-Gault) 91.3 BUN/Creatinine Ratio 14 Glucose Level 93 mg/dL Calcium Level 8.3 mg/dL Total Bilirubin 1.1 mg/dL Aspartate Amino Transf (AST/SGOT) 17 U/L Alanine Aminotransferase (ALT/SGPT) 13 U/L Alkaline Phosphatase 49 U/L Total Protein 6.6 g/dL Albumin 3.6 g/dL Albumin/Globulin Ratio 1.2 Lipase 85 U/L Bedside Urine HCG, Qualitative Hcg negative Current Medications Medications (Trade) Dose Ordered Sig/Alysia Route PRN Reason Start Time Stop Time Status Last Admin Dose Admin Morphine Sulfate (Morphine Sulfate) 4 mg 1X ONCE IV/SQ 06/17/20 10:00 06/17/20 10:01 DC 06/17/20 10:21 Ondansetron HCl (Zofran) 4 mg 1X ONCE IVP 06/17/20 10:00 06/17/20 10:01 DC 06/17/20 10:21 Vital Signs: Vital Signs Date Time Temp Pulse Resp B/P (MAP) Pulse Ox O2 Delivery O2 Flow Rate FiO2 06/17/20 11:07 70 25 109/60 (76) 97 Room Air 06/17/20 10:51 16 98 Room Air 06/17/20 10:37 66 13 110/54 (72) 94 Room Air 06/17/20 10:21 17 97 Room Air 06/17/20 10:07 64 15 109/59 (76) 96 Room Air 06/17/20 09:37 14 120/65 (83) Room Air 06/17/20 09:30 98.7 76 17 116/59 (78) 98 Room Air 98.7 EKG: EKG: [] Radiology/Procedures: Radiology/Procedures: [][facility] [address] [place] [address] IMAGING REPORT Signed PATIENT: ROMELIA MONTIEL LACCOUNT: [id number] : 1975 LOCATION: ER AGE: 45 SEX: F EXAM STATUS: REG ER ORD. PHYSICIAN: ANDERS WHITTAKER DO REASON: LLQ pain. hx L adnexal mass PROCEDURE: PELVIS COMPLETE Pelvic ultrasound 06/17/2020. Reason for exam: Left-sided pain. History of a mass. Correlation is made with a CT of 05/30/2020. FINDINGS: Uterus is normal in configuration. The endometrium appears normal with thickness of 6 mm. Neither ovary could be constantly identified. There is a complex mass posteriorly and toward the left corresponding to the CT. This measures up to about 8.9 x 8.5 x 7.8 cm. There appears to be both cystic and solid components. There is also some free fluid. IMPRESSION: Pelvic mass and free fluid, grossly similar to appearance on CT. Electronically signed by: Gigi Clemons Jr., MD (06/17/2020 1:01 PM) [id number] DICTATED and SIGNED BY: GIGI CLEMONS Jr, MD DATE: 06/17/20 [id number] 0 Course & Med Decision Making: Course & Med Decision Making Pertinent Labs and Imaging studies reviewed. (See chart for details) [] Patient is a 45-year-old female who presents with complaint of acute on chronic left lower quadrant abdominal discomfort. Labs today unremarkable. Ultrasound imaging today does reveal a 9 x 9 x 9 cm left adnexal mass. Patient symptoms were well controlled in the emergency department. Extensive chart review was performed. On May 30 she was diagnosed with nonspecific mass in the left adnexa measuring approximate 10 cm x 6 cm. She was seen at [facility] approximate 1 week ago and was noted that the mass had rapidly expanded to approximately 15 cm. She was evaluated urgently by [employer] specialist Dr. Torre and colorectal surgeon Dr. Sin. Outpatient cancers labs were obtained and are suspicious for ovarian cancer. I did have extensive conversation with Dr. Torre who evaluated the patient earlier this week. She states that herself and Dr. Sin feel that this surgical management is outside of the scope. They feel the patient may require ureteral stents and encouraged her to see gynecologic oncologic surgical evaluation at either [facility]. I did have lengthy discussion the patient regarding results of labs and imaging. She states she was unaware that she needed to seek care with a different specialist at a different facility. On repeat examination her abdomen remains benign. She has tolerated p.o. States her pain is resolved. I did discuss the possibility of transfer to another facility versus outpatient follow-up. Given the patient's feeling much better she states she would like to follow-up outpatient. She will be given referrals to gynecology oncologic specialist. Strict return precautions were discussed and understood. Patient is comfortable with this plan. Stable for discharge home. Dragon Disclaimer: Dragon Disclaimer: This electronic medical record was generated, in whole or in part, using a voice recognition dictation system. Departure Departure Impression: Primary Impression: Adnexal mass Additional Impression: Abdominal pain Qualified Codes: R10.32 - Left lower quadrant pain Disposition: 01 DC HOME SELF CARE/HOMELESS Condition: STABLE Referrals: LATESHA CARDONA MD (PCP) Patient Instructions: Ovarian Cancer Additional Instructions: [facility] [address] [place] [address] Office Contact: [facility] [address], [address], [address] at [phone] Discharge Abdominal Pain Re-Check Precautions: I'm unsure of the specific cause of your abdominal pain. However, at this point I feel that you are low risk for a life threatening emergency and that discharge from the Emergency Department is safe. There is a very small possibility that you are just too early in your clinical course for our physical exam/labs/imaging to ascertain whether or not you have an emergent condition that could potentially cause permanent disability or be life threatening. As such, it is very important that you follow up with your primary doctor or return to the Emergency Department in 12-24 hours for re-assessment and further evaluation if clinically indicated. If you develop new or worsening symptoms then you should return to the Emergency Department immediately. Home Care Instructions: Abdominal Pain Many things may cause abdominal pain. Your ER visit might not show the exact reason you are having pain. In some cases, additional time is needed to determine if the cause is serious. Therefore you may be told to go home and watch for any changes or worsening in your condition. Before that, we may not know if you need more testing, or if hospitalization or surgery is necessary. If its not something serious, the pain may go away without treatment or get better with simple things like avoiding certain foods or medications. In the ER, your doctor asks you questions, examines you and in some cases, may order tests. These help doctors decide if the pain is from something serious. Tests are not always done and may not provide a definite answer. There can still be a problem, even with normal test results. Abdominal pain may be caused by something serious (like appendicitis), which is not obvious right away. Because of this, another checkup is needed to make sure you are OK. It is VERY IMPORTANT to follow up for a repeat exam, especially if you have any symptoms that are not going away or are getting worse. We recommend that you RETURN TO THE EMERGENCY ROOM IN 8-12 HOURS to be rechecked. If you cannot, you may follow up with your primary care doctor or clinic. It is important that you follow all of the instructions below. RETURN TO THE EMERGENCY ROOM IMMEDIATELY IF: The pain does not go away or gets worse. You have a fever. You keep throwing up and cannot keep anything down. You pass bloody or black stools. You develop new symptoms. HOME CARE INSTRUCTIONS Come back to the ER (or see your doctor) in 8-12 hours. DO NOT take laxatives unless directed by your doctor. Avoid the use of alcohol Take pain medicine only as directed by your doctor. Only take [id number] or prescription medicine as directed by your doctor. Try a clear liquid diet (broth, tea, jello, water) for the next 12-24 hours. Slowly move to a bland diet as tolerated. Do not eat greasy, fatty or spicy foods. Once you start getting better, go back to a normal, healthy diet, slowly over a few days. DISCHARGE PT INSTRUCTIONS: YOU HAVE BEEN EVALUATED FOR ABDOMINAL PAIN. HOWEVER, WE ARE UNABLE TO PROVIDE A DEFINITE CAUSE OF YOUR SYMPTOMS. EVEN THOUGH YOUR TESTS MAY HAVE BEEN NORMAL, YOU STILL COULD HAVE A SERIOUS CAUSE FOR YOUR ABDOMINAL PAIN, INCLUDING APPENDICITIS. THE BEST TEST TO DETERMINE IF YOU HAVE A SERIOUS CAUSE IS RE-EXAMINATION OVER TIME. WE USED TO ADMIT PATIENTS TO THE HOSPITAL FOR THIS, BUT CAN NOW ALLOW YOU TO GO HOME, & RETURN TO OUR ER THE NEXT DAY FOR RE- EXAMINATION. THUS, WE WOULD LIKE YOU TO RETURN TO OUR ER TOMORROW FOR YOUR RE- EVALUATION. (IF YOUR SYMPTOMS HAVE GONE AWAY, THEN YOU DO NOT NEED TO RETURN.) IF YOUR SYMPTOMS GET WORSE BETWEEN NOW & THEN, YOU SHOULD RETURN IMMEDIATELY & NOT WAIT UNTIL TOMORROW. SYMPTOMS TO LOOK FOR WORSENING PAIN, HIGH FEVER, PERSISTENT VOMITING [NOT CONTROLLED BY MEDICINE], AND/OR OVERALL WORSENING OF YOUR CONDITION. Scripts Ondansetron Hcl (ZOFRAN) 4 Mg Tablet 1 TAB PO TID PRN PRN for NAUSEA, #9 TAB Prov: ANDERS WHITTAKER DO 06/17/20 Hydrocodone/Apap 5-325 (NORCO 5-325 TABLET) 1 Each Tablet 1-2 EACH PO PRN Q6HRS PRN for PAIN, #10 TAB as needed for pain Prov: ANDERS WHITTAKER DO 06/17/20 ANDERS WHITTAKER DO Jun 17, 2020 09:52
[2020-06-17] MEDS ORDERED: ONDANSETRON PF 4 MG/2 ML VIAL. IVP ONE (10:00)
[2020-06-17] MEDS ORDERED: MORPHINE SULFATE 4 MG/ML VIAL. IV/SQ ONE (10:00)
[2020-06-17 10:05] LABS: BASO % 1 % (0-3); EOS % 0 % (0-3); HEMATOCRIT 34.3 % (36.0-47.0); LYMPH # 0.7 x10^3/uL (1.0-4.8); LYMPH % 13 % (24-48); MEAN CORPUSCULAR HEMOGLOBIN 37 pg (25-35); MEAN CORPUSCULAR HGB CONC 35 g/dL (31-37); MEAN CORPUSCULAR VOLUME 104 fL (79-100); MONO # 0.4 x10^3/uL (0.0-1.1); MONO % 7 % (0-9); NEUT # 4.2 x10^3/uL (1.8-7.7); NEUT % 79 % (31-73); PLATELET COUNT 224 x10^3/uL (140-400); RED CELL DISTRIBUTION WIDTH 15.7 % (11.5-14.5); WHITE BLOOD COUNT 5.3 x10^3/uL (4.0-11.0)
[2020-06-17 10:07] LABS: COLOR,URINE STRAW
[2020-06-17 10:08] LABS: BILIRUBIN,URINE MODERATE (NEG); CLARITY,URINE HAZY; NITRITE,URINE NEGATIVE (NEG); PROTEIN,URINE 100 mg/dL (NEG-TRACE)
[2020-06-17 10:10] LABS: BACTERIA,URINE FEW /HPF (0-FEW); WBC,URINE RARE /HPF (0-4)
[2020-06-17 10:15] LABS: CALCIUM 8.3 mg/dL (8.5-10.1); CREATININE 0.7 mg/dL (0.6-1.0); GFR 91.3; POTASSIUM 3.5 mmol/L (3.5-5.1)
[2020-06-17 10:22] LABS: ALBUMIN 3.6 g/dL (3.4-5.0); ALBUMIN/GLOBULIN RATIO 1.2 (1.0-1.7); TOTAL BILIRUBIN 1.1 mg/dL (0.2-1.0); TOTAL PROTEIN 6.6 g/dL (6.4-8.2)
--- NOTE | 2020-06-17 13:04 | RAD ---
Pelvic ultrasound 06/17/2020. Reason for exam: Left-sided pain. History of a mass. Correlation is made with a CT of 05/30/2020. FINDINGS: Uterus is normal in configuration. The endometrium appears normal with thickness of 6 mm. Neither ovary could be constantly identified. There is a complex mass posteriorly and toward the left corresponding to the CT. This measures up to about 8.9 x 8.5 x 7.8 cm. There appears to be both cystic and solid components. There is also some free fluid. IMPRESSION: Pelvic mass and free fluid, grossly similar to appearance on CT. Electronically signed by: Diomedes Clemons Jr., MD (06/17/2020 1:01 PM) [id number]
[2020-06-17] MEDS ORDERED: ONDA4TAB7 PO (13:53)
[2020-06-17] MEDS ORDERED: HYDR-3164 PO (13:53)
[2020-06-17 14:07] VITALS: BP 115/66
== END 2020-06-17 14:34 | disposition home or self-care (01) ==
LOC: ER 09:23
DX: R19.09 Other intra-abdominal and pelvic swelling, mass and lump (principal); R10.32 Left lower quadrant pain; J45.909 Unspecified asthma, uncomplicated; Z87.891 Personal history of nicotine dependence; Z90.49 Acquired absence of other specified parts of digestive tract; Z88.1 Allergy status to other antibiotic agents; Z88.5 Allergy status to narcotic agent; Z88.8 Allergy status to other drugs, medicaments and biological substances
CPT/HCPCS: 36415; 76856; 80053; 81001; 81025; 83690; 85025; 96374; 96375; 99285; J2270; J2405

== ENCOUNTER → 2020-07-04 | Outpatient (CLI) | payer OTHER ==
[2020-06-17 14:07] VITALS: BP 115/66
[~2020-07-04] MED LIST changes: +HYDR-3164 PO
[2020-07-04 08:29] LABS: BASO % 1 % (0-3); EOS % 1 % (0-3); HEMATOCRIT 33.9 % (36.0-47.0); HEMOGLOBIN 11.7 g/dL (12.0-15.5); LYMPH # 1.2 x10^3/uL (1.0-4.8); LYMPH % 27 % (24-48); MEAN CORPUSCULAR HEMOGLOBIN 35 pg (25-35); MEAN CORPUSCULAR HGB CONC 34 g/dL (31-37); MEAN CORPUSCULAR VOLUME 100 fL (79-100); MONO # 0.4 x10^3/uL (0.0-1.1); MONO % 9 % (0-9); NEUT # 2.7 x10^3/uL (1.8-7.7); NEUT % 63 % (31-73); PLATELET COUNT 272 x10^3/uL (140-400); RED BLOOD COUNT 3.38 x10^6/uL (3.50-5.40); RED CELL DISTRIBUTION WIDTH 13.8 % (11.5-14.5); WHITE BLOOD COUNT 4.4 x10^3/uL (4.0-11.0)
[2020-07-04 08:39] LABS: CALCIUM 8.9 mg/dL (8.5-10.1); CREATININE 0.7 mg/dL (0.6-1.0); GFR 91.3; POTASSIUM 4.3 mmol/L (3.5-5.1)
[2020-07-04 08:49] LABS: ALBUMIN 3.4 g/dL (3.4-5.0); ALBUMIN/GLOBULIN RATIO 1.1 (1.0-1.7); TOTAL BILIRUBIN 0.6 mg/dL (0.2-1.0); TOTAL PROTEIN 6.5 g/dL (6.4-8.2)
== END ==
LOC: ONCLAB 08:18
PROVIDERS: ATTEND Internal Medicine Hematology & Oncology
DX: C18.7 Malignant neoplasm of sigmoid colon (principal)
CPT/HCPCS: 36415; 80053; 82378; 85025

== ENCOUNTER → 2020-08-07 | Outpatient (CLI) | payer OTHER ==
[~2020-08-07] MED LIST changes: +FAMO40TA4 PO
[2020-08-07 16:06] LABS: BASO % 1 % (0-3); EOS # 0.1 x10^3/uL (0.0-0.7); EOS % 3 % (0-3); HEMATOCRIT 38.2 % (36.0-47.0); HEMOGLOBIN 12.7 g/dL (12.0-15.5); LYMPH # 1.6 x10^3/uL (1.0-4.8); LYMPH % 35 % (24-48); MEAN CORPUSCULAR HEMOGLOBIN 32 pg (25-35); MEAN CORPUSCULAR HGB CONC 33 g/dL (31-37); MEAN CORPUSCULAR VOLUME 96 fL (79-100); MONO # 0.3 x10^3/uL (0.0-1.1); MONO % 6 % (0-9); NEUT # 2.6 x10^3/uL (1.8-7.7); NEUT % 56 % (31-73); PLATELET COUNT 200 x10^3/uL (140-400); RED CELL DISTRIBUTION WIDTH 13.9 % (11.5-14.5); WHITE BLOOD COUNT 4.6 x10^3/uL (4.0-11.0)
[2020-08-07 16:14] LABS: CALCIUM 9.5 mg/dL (8.5-10.1); CREATININE 0.9 mg/dL (0.6-1.0); GFR 68.3; POTASSIUM 4.3 mmol/L (3.5-5.1)
[2020-08-07 16:20] LABS: ALBUMIN 4.1 g/dL (3.4-5.0); ALBUMIN/GLOBULIN RATIO 1.3 (1.0-1.7); TOTAL BILIRUBIN 0.6 mg/dL (0.2-1.0); TOTAL PROTEIN 7.3 g/dL (6.4-8.2)
== END ==
LOC: LAB 14:21
PROVIDERS: ATTEND Internal Medicine Hematology & Oncology
DX: C18.7 Malignant neoplasm of sigmoid colon (principal)
CPT/HCPCS: 36415; 80053; 82378; 85025

== ENCOUNTER → 2020-08-15 | Outpatient (CLI) | payer OTHER ==
[~2020-08-15] MED LIST changes: +IOHEXOL 240 MG/ML 50ML VIAL. PO ONE; +IOHEXOL 300 MG/ML 100ML VIAL. IV ONE
--- NOTE | 2020-08-15 16:37 | RAD ---
CT chest M pelvis with contrast dated 08/15/2020. Comparison made to 05/30/2020. CLINICAL INDICATION: Follow-up colon cancer. TECHNIQUE: Contiguous axial imaging of the chest abdomen pelvis performed after the administration of 75 cc Omni paque 300. One or more of the following individualized dose reduction techniques were utilized for this examinat ion: 1. Automated exposure control 2. Adjustment of the mA and/or kV according to patient size 3. Use of iterative reconstruction technique. FINDINGS: Heart size is within normal limits. No pericardial effusion. There are some nonpathologically enlarge d right paratracheal and subcarinal lymph nodes. No hilar or axillary adenopathy. Thyroid gland is un remarkable. Central airways are patent. There are multiple noncalcified pulmonary nodules scattered throughout nicole th lungs. A nodule within the right lower lobe anteriorly on 41 measures 6 mm versus 4 mm previously. Nodule in the left lower lobe medially on image 43 measures 8 mm versus 7 mm previously. Nodule in t he right lower lobe on image 48 measures 8 mm versus 7 mm previously. Multiple additional nodules katia aterally are similar to slightly increased in size. No consolidation or pleural effusion. No pneumoth orax. Liver, spleen, pancreas, adrenal glands and gallbladder are unremarkable. Kidneys are symmetric in si ze without hydronephrosis. Partially opacified GI tract normal in caliber and contour. The appendix is somewhat prominent measur ing 7 mm diameter but is unchanged in appearance from prior study. No inflammatory changes in the mes entery. No ascites or lymphadenopathy. There is evidence of prior rectosigmoid colon resection. No ad enopathy or ascites. Images of pelvis show interval resection of large left adnexal mass. Uterus and ovaries are not clear ly visualized. No free fluid. No pelvic lymphadenopathy. Bone windows show no acute findings. Multilevel spondylosis. IMPRESSION: 1. Multiple noncalcified pulmonary nodules, consistent with metastatic disease. Findings are similar to slightly increased from prior study. 2. Interval resection of large left pelvic mass. No recurrent mass or lymphadenopathy. 3. Status post rectosigmoid colon resection, also stable. Electronically signed by: Aldo Cowan MD (08/15/2020 4:35 PM) [id number]
== END ==
LOC: CT 09:31
PROVIDERS: ATTEND Internal Medicine Hematology & Oncology
DX: C18.7 Malignant neoplasm of sigmoid colon (principal); R91.1 Solitary pulmonary nodule
CPT/HCPCS: 71260; 74177; Q9966; Q9967

== ENCOUNTER → 2020-08-22 | Outpatient (CLI) | payer OTHER ==
[~2020-08-22] MED LIST changes: -FAMO40TA4 PO; -IOHEXOL 240 MG/ML 50ML VIAL. PO ONE; -IOHEXOL 300 MG/ML 100ML VIAL. IV ONE
[2020-08-22 11:23] LABS: HEMATOCRIT 36.8 % (36.0-47.0); HEMOGLOBIN 12.4 g/dL (12.0-15.5); MEAN CORPUSCULAR HEMOGLOBIN 32 pg (25-35); MEAN CORPUSCULAR HGB CONC 34 g/dL (31-37); MEAN CORPUSCULAR VOLUME 95 fL (79-100); PLATELET COUNT 201 x10^3/uL (140-400); RED BLOOD COUNT 3.88 x10^6/uL (3.50-5.40); RED CELL DISTRIBUTION WIDTH 13.7 % (11.5-14.5); WHITE BLOOD COUNT 3.7 x10^3/uL (4.0-11.0)
[2020-08-22 11:24] LABS: BASO % 1 % (0-3); EOS # 0.1 x10^3/uL (0.0-0.7); EOS % 2 % (0-3); LYMPH # 1.5 x10^3/uL (1.0-4.8); LYMPH % 40 % (24-48); MONO # 0.3 x10^3/uL (0.0-1.1); MONO % 7 % (0-9); NEUT # 1.9 x10^3/uL (1.8-7.7); NEUT % 50 % (31-73)
[2020-08-22 11:35] LABS: CALCIUM 9.2 mg/dL (8.5-10.1); CREATININE 0.8 mg/dL (0.6-1.0); GFR 78.3; POTASSIUM 4.1 mmol/L (3.5-5.1)
[2020-08-22 11:41] LABS: ALBUMIN 3.8 g/dL (3.4-5.0); ALBUMIN/GLOBULIN RATIO 1.2 (1.0-1.7); TOTAL BILIRUBIN 0.6 mg/dL (0.2-1.0)
== END ==
LOC: ONCLAB 10:57
PROVIDERS: ATTEND Internal Medicine Hematology & Oncology
DX: C18.7 Malignant neoplasm of sigmoid colon (principal); D69.59 Other secondary thrombocytopenia; J45.909 Unspecified asthma, uncomplicated; R91.8 Other nonspecific abnormal finding of lung field; D70.2 Other drug-induced agranulocytosis; G64 Other disorders of peripheral nervous system
CPT/HCPCS: 36415; 80053; 82378; 85025

== ENCOUNTER → 2020-10-17 | Outpatient (CLI) | payer OTHER ==
[~2020-10-17] MED LIST changes: +IOHEXOL 240 MG/ML 50ML VIAL. PO ONE; +IOHEXOL 300 MG/ML 100ML VIAL. IV ONE
--- NOTE | 2020-10-17 11:50 | KCIC ---
CT of the chest, abdomen, and pelvis 10/17/2020 INDICATION: Restaging, colon cancer. Abdominal pain. Bloating. COMPARISON STUDY: CT of the chest abdomen and pelvis August 15, 2030 TECHNIQUE: Multidetector CT imaging of the chest, abdomen, and pelvis performed following the adminis tration of IV contrast. FINDINGS: Heart size is normal. No pericardial effusion is identified. No pathologically enlarged med iastinal adenopathy is identified. No pneumothorax or pleural effusion is seen. There are innumerable small noncalcified pulmonary nodules consistent with metastasis. Multiple of these nodules have mini negra increased in size in the interim since comparison exam. Reference nodule can be seen in the rig ht middle lobe on axial image 48 measuring 8 mm on today's exam, and 6 mm on exam from August 15 21. Other nodules are grossly stable in size. Solid viscera of the abdomen are unremarkable in appear ance. Bladder is grossly unremarkable. No bowel obstruction is seen. Distal colonic resection noted. No abnormal abdominal or pelvic lymphadenopathy is appreciated. No evidence of acute osseous abnormal ity is identified. IMPRESSION: 1.Innumerable subcentimeter pulmonary nodules, consistent with metastatic disease, some of which have mildly increased in size in the interim. Otherwise stable appearance of the chest 2. Stable appearance of the abdomen and pelvis. No evidence of intra-abdominal progression of disease or intra-abdominal metastatic disease is identified CT DOSING PQRS STATEMENT: One or more of the following individualized dose reduction techniques were utilized for this examinat ion: 1. Automated exposure control 2. Adjustment of the mA and/or kV according to patient size 3. Use of iterative reconstruction technique Electronically signed by: Nate Michaud MD (10/17/2020 11:47 AM) [id number]
== END ==
LOC: KCIC CT 08:40
PROVIDERS: ATTEND Internal Medicine Hematology & Oncology
DX: C18.7 Malignant neoplasm of sigmoid colon (principal); R91.1 Solitary pulmonary nodule
CPT/HCPCS: 71260; 74177; Q9966; Q9967

== ENCOUNTER 2020-11-15 13:37 | Emergency (ER) | payer OTHER ==
[~2020-11-15] VITALS: Ht 172.7 cm; Wt 66.8 kg
[~2020-11-15 13:37] MED LIST changes: -IOHEXOL 240 MG/ML 50ML VIAL. PO ONE; -IOHEXOL 300 MG/ML 100ML VIAL. IV ONE
[2020-11-15] MEDS ORDERED: fentaNYL PF VIAL 100 MCG/2 ML VIAL IVP ONE (15:15)
[2020-11-15 15:17] LABS: BILIRUBIN,URINE NEGATIVE (NEG); CLARITY,URINE CLEAR; COLOR,URINE YELLOW; NITRITE,URINE NEGATIVE (NEG); PROTEIN,URINE NEGATIVE (NEG-TRACE); UROBILINOGEN,URINE 0.2 mg/dL (0.2 mg/dL)
[2020-11-15 15:18] LABS: BASO # 0.1 x10^3/uL (0.0-0.2); BASO % 1 % (0-3); EOS % 1 % (0-3); HEMATOCRIT 34.7 % (36.0-47.0); LYMPH # 1.6 x10^3/uL (1.0-4.8); LYMPH % 35 % (24-48); MEAN CORPUSCULAR HEMOGLOBIN 34 pg (25-35); MEAN CORPUSCULAR HGB CONC 35 g/dL (31-37); MEAN CORPUSCULAR VOLUME 99 fL (79-100); MONO # 0.3 x10^3/uL (0.0-1.1); MONO % 7 % (0-9); NEUT # 2.5 x10^3/uL (1.8-7.7); NEUT % 56 % (31-73); PLATELET COUNT 185 x10^3/uL (140-400); RED CELL DISTRIBUTION WIDTH 17.8 % (11.5-14.5); WHITE BLOOD COUNT 4.5 x10^3/uL (4.0-11.0)
[2020-11-15 15:25] LABS: BACTERIA,URINE FEW /HPF (0-FEW); RBC,URINE 0 /HPF (0-2); WBC,URINE 0 /HPF (0-4)
[2020-11-15 15:26] LABS: CALCIUM 9.3 mg/dL (8.5-10.1); CREATININE 0.8 mg/dL (0.6-1.0); GFR 78.3; POTASSIUM 3.9 mmol/L (3.5-5.1)
[2020-11-15 15:27] LABS: PROTHROMBIN TIME PATIENT 13.2 SEC (11.7-14.0)
--- NOTE | 2020-11-15 15:28 | PHYS DOC ---
Past Medical History Past Medical History: Asthma, Other Additional Past Medical Histor: COLON CANCER,OVARIAN MASS Past Surgical History: Other Additional Past Surgical Histo: COLON RESECTION Smoking Status: Former Smoker Alcohol Use: Occasionally Drug Use: None General Adult EDM: Chief Complaint: RECTAL BLEED HPI: HPI: Patient is a 45 year old female who presented to ER due to abdominal pain with rectal bleeding. Patient has history of colon cancer, she is under chemo treatment at this time. Her symptoms started on Friday, the pain is more se patricia now. Patient denies any cough or fever, no trouble breathing, no chest pain. Patient said she had painful bowel movement, then noted blood when she wiped. She is not on blood thinner. Review of Systems: Review of Systems: Constitutional: Denies fever or chills. [] Eyes: Denies change in visual acuity. [] HENT: Denies nasal congestion or sore throat. [] Respiratory: Denies cough or shortness of breath. [] Cardiovascular: Denies chest pain or edema. [] GI: Positive for abdominal pain, bloody stool. : Denies dysuria. [] Musculoskeletal: Denies back pain or joint pain. [] Integument: Denies rash. [] Neurologic: Denies headache, focal weakness or sensory changes. [] Endocrine: Denies polyuria or polydipsia. [] Lymphatic: Denies swollen glands. [] Psychiatric: Denies depression or anxiety. [] Heart Score: C/O Chest Pain: N/A Risk Factors: Risk Factors: DM, Current or recent (<one month) smoker, HTN, HLP, family history of CAD, obesity. Risk Scores: Score 0 - 3: 2.5% MACE over next 6 weeks - Discharge Home Score 4 - 6: 20.3% MACE over next 6 weeks - Admit for Clinical Observation Score 7 - 10: 72.7% MACE over next 6 weeks - Early Invasive Strategies Current Medications: Current Medications Medications (Trade) Dose Ordered Sig/Alysia Start Time Stop Time Status Last Admin Dose Admin Fentanyl Citrate (Fentanyl 2ml Vial) 50 mcg 1X ONCE 11/15/20 15:15 11/15/20 15:16 DC 11/15/20 15:20 50 MCG Allergies: Allergies: Allergies Coded Allergies Type Severity Reaction Last Updated Verified oxycodone Allergy Intermediate Unknown 01/07/20 Yes amoxicillin Adverse Reaction Intermediate Nausea and Vomiting 01/07/20 Yes clavulanic acid Adverse Reaction Intermediate Nausea and Vomiting 01/07/20 Yes erythromycin base Adverse Reaction Intermediate Nausea and Vomiting 01/07/20 Yes Physical Exam: PE: Constitutional: Well developed, well nourished, no acute distress, non-toxic appearance. [] HENT: Normocephalic, atraumatic, bilateral external ears normal, oropharynx moist, no oral exudates, nose normal. [] Eyes: PERRLA, EOMI, conjunctiva normal, no discharge. [] Neck: Normal range of motion, no tenderness, supple, no stridor. [] Cardiovascular:Heart rate regular rhythm, no murmur [] Lungs & Thorax: Bilateral breath sounds clear to auscultation [] Abdomen: Bowel sounds normal, soft, there is tenderness to palpation in lower abdominal area., No rebound, no guarding. Skin: Warm, dry, no erythema, no rash. [] Back: No tenderness, no CVA tenderness. [] Extremities: No tenderness, no cyanosis, no clubbing, ROM intact, no edema. [] Neurologic: Alert and oriented X 3, normal motor function, normal sensory function, no focal deficits noted. [] Psychologic: Affect normal, judgement normal, mood normal. [] Current Patient Data: Labs: Laboratory Tests Test 11/15/20 14:17 11/15/20 14:59 POC Urine HCG, Qualitative Hcg negative (Negative) White Blood Count 4.5 x10^3/uL (4.0-11.0) Red Blood Count 3.50 x10^6/uL (3.50-5.40) Hemoglobin 12.0 g/dL (12.0-15.5) Hematocrit 34.7 % (36.0-47.0) L Mean Corpuscular Volume 99 fL (79-100) Mean Corpuscular Hemoglobin 34 pg (25-35) Mean Corpuscular Hemoglobin Concent 35 g/dL (31-37) Red Cell Distribution Width 17.8 % (11.5-14.5) H Platelet Count 185 x10^3/uL (140-400) Neutrophils (%) (Auto) 56 % (31-73) Lymphocytes (%) (Auto) 35 % (24-48) Monocytes (%) (Auto) 7 % (0-9) Eosinophils (%) (Auto) 1 % (0-3) Basophils (%) (Auto) 1 % (0-3) Neutrophils # (Auto) 2.5 x10^3/uL (1.8-7.7) Lymphocytes # (Auto) 1.6 x10^3/uL (1.0-4.8) Monocytes # (Auto) 0.3 x10^3/uL (0.0-1.1) Eosinophils # (Auto) 0.0 x10^3/uL (0.0-0.7) Basophils # (Auto) 0.1 x10^3/uL (0.0-0.2) Laboratory Tests 11/15/20 14:59 Vital Signs: Vital Signs Date Time Temp Pulse Resp B/P (MAP) Pulse Ox O2 Delivery O2 Flow Rate FiO2 11/15/20 15:23 64 16 100/58 (72 91 Room Air EKG: EKG: [] Radiology/Procedures: Radiology/Procedures: [][facility] [address] [place] [address] IMAGING REPORT Signed PATIENT: ROMELIA MONTIEL LACCOUNT: [id number] : 1975 LOCATION: ER AGE: 45 SEX: F EXAM STATUS: REG ER ORD. PHYSICIAN: ENEDINA GARDINER DO REASON: abdominal pain, rectal bleeding PROCEDURE: CT ABD PELV W/ IV CONTRST ONLY Exam: CT of abdomen and pelvis with contrast INDICATION: Abdominal pain, rectal bleeding TECHNIQUE: Sequential axial images through the abdomen and pelvis obtained following the administration of 75 mL of Omni 300 IV contrast. Sagittal and coronal reformatted images were reconstructed from the axial data and reviewed. Comparisons: 10/17/2020 FINDINGS: Heart size is normal. No pericardial effusion. There are numerous pulmonary nodules noted at the lung bases, largest measuring 1 cm in the right lower lobe. Liver, spleen, pancreas, gallbladder and adrenals are unremarkable. No perinephric inflammation or hydronephrosis. No renal or ureteral calculi are identified. Bladder is distended and appears thin-walled. Uterus is absent. No abnormal adnexal mass. Postoperative changes noted at the sigmoid colon. Large amount stool is noted in the remainder of the colon. Small bowel is unremarkable. Appendix is not identified. No free intra-abdominal air or fluid. No obstruction. Abdominal aorta has a normal course and caliber. Abdominal vasculature is patent. No enlarged intra-abdominal lymph nodes are identified. No suspicious osseous lesions or acute fractures. IMPRESSION: 1. Redemonstration of innumerable pulmonary nodules at the lung bases not significantly changed when compared to the prior CT in September. 2. Postoperative changes noted at the sigmoid colon. 3. Large amount stool noted in the remainder of the colon, correlate for constipation. Exposure: One or more of the following in the visualized dose reduction techniques were utilized for this examination: 1. Automated exposure control 2. Adjustment of the MA and/or KV according to patient size 3. Use of iterative of reconstructive technique Electronically signed by: Ludwig Ruiz MD (11/15/2020 4:30 PM) [facility] DICTATED and SIGNED BY: LUDWIG RUIZ MD DATE: 11/15/20 [id number] 0 Course & Med Decision Making: Course & Med Decision Making Pertinent Labs and Imaging studies reviewed. (See chart for details) Patient is a 45-year-old female with history of colon cancer under chemo treatment at this time, presented to ER due to abdominal pain with rectal bleeding. CT scan her abdomen pelvic show large amount of stool in her colon, hemoglobin was normal. Patient is most likely had rectal bleeding due to constipation. Patient says she feels much better now, would like to go home. She says she will come back if her symptoms get worse. Dragon Disclaimer: Dragon Disclaimer: This electronic medical record was generated, in whole or in part, using a voice recognition dictation system. Departure Departure Impression: Primary Impression: Abdominal pain Additional Impressions: Rectal bleeding Constipation Disposition: HOME / SELF CARE / HOMELESS Condition: STABLE Referrals: LATESHA CARDONA MD (PCP) follow up with your doctor this week Patient Instructions: Abdominal Pain, Constipation, Adult, Rectal Bleeding Additional Instructions: Thank you for visiting our Emergency Department. We appreciate you trusting us with your care. If any additional problems come up don't hesitate to return to visit us. Please follow up with your primary care provider so they can plan additional care if needed and know about the problem that you had. If symptoms worsen come back to the Emergency Department. Any concerning symptoms that start such as chest pain, shortness of air, weakness or numbness on one side of the body, running high fevers or any other concerning symptoms return to the ER. ENEDINA GARDINER DO Nov 15, 2020 15:28
[2020-11-15 15:33] LABS: ALBUMIN 4.2 g/dL (3.4-5.0); ALBUMIN/GLOBULIN RATIO 1.6 (1.0-1.7); TOTAL BILIRUBIN 0.6 mg/dL (0.2-1.0); TOTAL PROTEIN 6.8 g/dL (6.4-8.2)
[2020-11-15] MEDS ORDERED: CONTRAST GIVEN. MC PRN (16:15)
[2020-11-15] MEDS ORDERED: IOHEXOL 350 MG/ML 100 ML VIAL. IV ONE (16:15)
--- NOTE | 2020-11-15 16:33 | RAD ---
Exam: CT of abdomen and pelvis with contrast INDICATION: Abdominal pain, rectal bleeding TECHNIQUE: Sequential axial images through the abdomen and pelvis obtained following the administrati on of 75 mL of Omni 300 IV contrast. Sagittal and coronal reformatted images were reconstructed from the axial data and reviewed. Comparisons: 10/17/2020 FINDINGS: Heart size is normal. No pericardial effusion. There are numerous pulmonary nodules noted at the lung bases, largest measuring 1 cm in the right lower lobe. Liver, spleen, pancreas, gallbladder and adrenals are unremarkable. No perinephric inflammation or hydronephrosis. No renal or ureteral calculi are identified. Bladder is distended and appears thin-walled. Uterus is absent. No abnormal adnexal mass. Postoperative changes noted at the sigmoid colon. Large amount stool is noted in the remainder of the colon. Small bowel is unremarkable. Appendix is not identified. No free intra-abdominal air or fluid . No obstruction. Abdominal aorta has a normal course and caliber. Abdominal vasculature is patent. No enlarged intra-abdominal lymph nodes are identified. No suspicious osseous lesions or acute fractures. IMPRESSION: 1. Redemonstration of innumerable pulmonary nodules at the lung bases not significantly changed when compared to the prior CT in September. 2. Postoperative changes noted at the sigmoid colon. 3. Large amount stool noted in the remainder of the colon, correlate for constipation. Exposure: One or more of the following in the visualized dose reduction techniques were utilized for this examination: 1. Automated exposure control 2. Adjustment of the MA and/or KV according to patient size 3. Use of iterative of reconstructive technique Electronically signed by: Ludwig Dow MD (11/15/2020 4:30 PM) [facility]
[2020-11-15] MEDS ORDERED: HEPARIN PF 500 UNIT/5 ML DISP.SYRIN. IVP ONE (18:00)
[2020-11-15 18:08] VITALS: BP 109/56
== END 2020-11-15 18:20 | disposition home or self-care (01) ==
LOC: ER 13:37
DX: R10.30 Lower abdominal pain, unspecified (principal); K62.5 Hemorrhage of anus and rectum; K59.00 Constipation, unspecified; J45.909 Unspecified asthma, uncomplicated; Z87.891 Personal history of nicotine dependence; Z88.1 Allergy status to other antibiotic agents; Z88.5 Allergy status to narcotic agent; Z88.8 Allergy status to other drugs, medicaments and biological substances
CPT/HCPCS: 36415; 74177; 80053; 81001; 81025; 85025; 85610; 85730; 96374; 96375; 99285; J1642; J3010; Q9967

== ENCOUNTER → 2020-11-29 | Day surgery (SDC) | payer OTHER ==
[~2020-11-29] MED LIST changes: +FAMO40TA4 PO; +IV RINGERS,LACTATED 1000ML 1,000 ML IV SCH; +LIDOCAINE 2% PF 5 ML VIAL. ONE; +ONDANSETRON PF 4 MG/2 ML VIAL. IVP ONE; +PROCHLORPERAZINE 10 MG/2 ML VIAL. IVP PRN; +PROPOFOL 10 MG/ML (20ML) VIAL. IV ONE; +fentaNYL PF VIAL 100 MCG/2 ML VIAL IVP PRN
[2020-11-29 08:13] VITALS: BP 123/68
== END | disposition home or self-care (01) ==
LOC: ENDOS 05:56
PROVIDERS: ATTEND Internal Medicine Gastroenterology
DX: Z08 Encounter for follow-up examination after completed treatment for malignant neoplasm (principal); K64.0 First degree hemorrhoids; R10.13 Epigastric pain; R11.0 Nausea; K29.50 Unspecified chronic gastritis without bleeding; K21.9 Gastro-esophageal reflux disease without esophagitis; J45.909 Unspecified asthma, uncomplicated; Z85.038 Personal history of other malignant neoplasm of large intestine; Z98.0 Intestinal bypass and anastomosis status; Z20.822 Contact with and (suspected) exposure to COVID-19; Z90.710 Acquired absence of both cervix and uterus; Z98.51 Tubal ligation status; Z98.890 Other specified postprocedural states; Z79.899 Other long term (current) drug therapy; Z87.891 Personal history of nicotine dependence; Z72.89 Other problems related to lifestyle; Z88.1 Allergy status to other antibiotic agents; Z88.8 Allergy status to other drugs, medicaments and biological substances
CPT/HCPCS: 43235; 45378; 87426; J2405; J2704

== ENCOUNTER → 2020-12-01 | Outpatient (CLI) | payer OTHER ==
[2020-11-29 08:13] VITALS: BP 123/68
[~2020-12-01] MED LIST changes: -IV RINGERS,LACTATED 1000ML 1,000 ML IV SCH; -LIDOCAINE 2% PF 5 ML VIAL. ONE; -ONDANSETRON PF 4 MG/2 ML VIAL. IVP ONE; -PROCHLORPERAZINE 10 MG/2 ML VIAL. IVP PRN; -PROPOFOL 10 MG/ML (20ML) VIAL. IV ONE; -fentaNYL PF VIAL 100 MCG/2 ML VIAL IVP PRN
[2020-12-01 10:56] LABS: BASO # 0.1 x10^3/uL (0.0-0.2); BASO % 1 % (0-3); EOS % 0 % (0-3); HEMATOCRIT 39.6 % (36.0-47.0); HEMOGLOBIN 13.5 g/dL (12.0-15.5); LYMPH # 1.8 x10^3/uL (1.0-4.8); LYMPH % 31 % (24-48); MEAN CORPUSCULAR HEMOGLOBIN 34 pg (25-35); MEAN CORPUSCULAR HGB CONC 34 g/dL (31-37); MEAN CORPUSCULAR VOLUME 98 fL (79-100); MONO # 0.5 x10^3/uL (0.0-1.1); MONO % 8 % (0-9); NEUT # 3.4 x10^3/uL (1.8-7.7); NEUT % 60 % (31-73); PLATELET COUNT 248 x10^3/uL (140-400); RED BLOOD COUNT 4.02 x10^6/uL (3.50-5.40); RED CELL DISTRIBUTION WIDTH 15.4 % (11.5-14.5); WHITE BLOOD COUNT 5.7 x10^3/uL (4.0-11.0)
[2020-12-01 10:59] LABS: CREATININE 0.9 mg/dL (0.6-1.0); GFR 68.3; POTASSIUM 3.7 mmol/L (3.5-5.1)
[2020-12-01 11:06] LABS: ALBUMIN 4.8 g/dL (3.4-5.0); ALBUMIN/GLOBULIN RATIO 1.7 (1.0-1.7); TOTAL PROTEIN 7.6 g/dL (6.4-8.2)
== END ==
LOC: ONCLAB 10:36
PROVIDERS: ATTEND Internal Medicine Hematology & Oncology
DX: C18.7 Malignant neoplasm of sigmoid colon (principal)
CPT/HCPCS: 36415; 80053; 82378; 85025

== ENCOUNTER → 2020-12-18 | Outpatient (CLI) | payer OTHER ==
[2020-11-29 08:13] VITALS: BP 123/68
[~2020-12-18] MED LIST changes: +IOHEXOL 240 MG/ML 50ML VIAL. PO ONE; +IOHEXOL 300 MG/ML 100ML VIAL. IV ONE
--- NOTE | 2020-12-18 12:30 | RAD ---
EXAM: CT OF THE CHEST, ABDOMEN AND PELVIS WITH CONTRAST. HISTORY: Adenocarcinoma of sigmoid colon. TECHNIQUE: Computed tomography of the chest, abdomen and pelvis was performed after the intravenous a dministration of iodinated contrast. One or more of the following individualized dose reduction techn iques were utilized for this examination: 1. Automated exposure control. 2. Adjustment of the mA and/or kV according to patient size. 3. Use of iterative reconstruction technique. COMPARISON: 10/17/2020. FINDINGS: Bone windows reveal no suspicious lesions. A left suprahilar lymph node has increased in size and measures 1.9 x 1.3 cm. There is no pleural or pericardial effusion. The heart is not enlarged. A left-sided port catheter has its tip in the superi or cavoatrial junction. Multiple bilateral pulmonary nodules are consistent with metastatic disease. One posterior to the lef t hilum in the left lower lobe measures 1.6 x 1.1 cm and is slightly decreased from 1.8 x 1.2 cm. Oth ers have increased. One in the right lower lobe on image 55 measures 10 x 8 mm as compared with 8 x 6 mm previously. Overall, most nodules appear slightly increased. The liver, pancreas, gallbladder, adrenal glands, spleen and kidneys are unremarkable. There are no p athologically enlarged lymph nodes. The uterus is surgically absent. There is no small bowel obstruction. There are no pathologically enl arged lymph nodes. There is diastases of the rectus muscles. There is a small full-thickness hernia j ust to the right of midline containing only fat. IMPRESSION: 1. Some pulmonary nodules have decreased in size, but overall, the majority appears slightly increase d since 10/17/2020. 2. One mediastinal lymph node has increased in size consistent with metastatic involvement. Electronically signed by: Magen Camacho MD (12/18/2020 12:27 PM) [facility]
== END ==
LOC: CT 08:32
PROVIDERS: ATTEND Internal Medicine Hematology & Oncology
DX: C18.7 Malignant neoplasm of sigmoid colon (principal); R91.8 Other nonspecific abnormal finding of lung field; Z88.1 Allergy status to other antibiotic agents
CPT/HCPCS: 71260; 74177; Q9966

== ENCOUNTER → 2020-12-21 | Outpatient (CLI) | payer OTHER ==
[2020-11-29 08:13] VITALS: BP 123/68
[~2020-12-21] MED LIST changes: -IOHEXOL 240 MG/ML 50ML VIAL. PO ONE; -IOHEXOL 300 MG/ML 100ML VIAL. IV ONE
[2020-12-21 11:17] LABS: BASO # 0.1 x10^3/uL (0.0-0.2); BASO % 1 % (0-3); EOS # 0.1 x10^3/uL (0.0-0.7); EOS % 1 % (0-3); HEMATOCRIT 39.8 % (36.0-47.0); HEMOGLOBIN 13.9 g/dL (12.0-15.5); LYMPH # 1.4 x10^3/uL (1.0-4.8); LYMPH % 22 % (24-48); MEAN CORPUSCULAR HEMOGLOBIN 34 pg (25-35); MEAN CORPUSCULAR HGB CONC 35 g/dL (31-37); MEAN CORPUSCULAR VOLUME 97 fL (79-100); MONO # 0.4 x10^3/uL (0.0-1.1); MONO % 7 % (0-9); NEUT # 4.5 x10^3/uL (1.8-7.7); NEUT % 70 % (31-73); PLATELET COUNT 245 x10^3/uL (140-400); RED BLOOD COUNT 4.09 x10^6/uL (3.50-5.40); RED CELL DISTRIBUTION WIDTH 14.2 % (11.5-14.5); WHITE BLOOD COUNT 6.4 x10^3/uL (4.0-11.0)
[2020-12-21 11:24] LABS: CALCIUM 9.1 mg/dL (8.5-10.1); CREATININE 0.9 mg/dL (0.6-1.0); GFR 68.3
[2020-12-21 11:30] LABS: ALBUMIN 4.4 g/dL (3.4-5.0); ALBUMIN/GLOBULIN RATIO 1.5 (1.0-1.7); TOTAL PROTEIN 7.4 g/dL (6.4-8.2)
== END ==
LOC: ONCLAB 10:44
PROVIDERS: ATTEND Internal Medicine Hematology & Oncology
DX: C18.7 Malignant neoplasm of sigmoid colon (principal)
CPT/HCPCS: 36415; 80053; 82378; 85025

== ENCOUNTER → 2021-01-01 | Outpatient (CLI) | payer OTHER ==
[2020-11-29 08:13] VITALS: BP 123/68
[~2021-01-01] MED LIST changes: +IOHEXOL 240 MG/ML 50ML VIAL. PO ONE; +IOHEXOL 300 MG/ML 100ML VIAL. IV ONE
--- NOTE | 2021-01-01 11:29 | RAD ---
EXAM: CT ABDOMEN/PELVIS WITH CONTRAST. HISTORY: Colon cancer, abdominal pain. TECHNIQUE: Computed tomography of the abdomen and pelvis was performed after the intravenous administ ration of iodinated contrast. One or more of the following individualized dose reduction techniques w ere utilized for this examination: 1. Automated exposure control. 2. Adjustment of the mA and/or kV according to patient size. 3. Use of iterative reconstruction technique. COMPARISON: 12/18/2020. FINDINGS: Lung windows through the visualized portions of the bases reveal multiple bilateral pulmona ry nodules consistent with metastatic disease. These measure up to 12 mm on the right and are unchang ed over the short interval. Bone windows reveal no suspicious lesions. Central canal stenosis appears moderate to severe at L4-5. The liver appears normal without suspicious lesions. A focus of hypoattenuation along the falciform l igament is likely a normal variant perfusion related phenomenon. The spleen, gallbladder, pancreas, a drenal glands and kidneys are unremarkable. There are no pathologically enlarged lymph nodes. An anastomotic suture line is noted along the rectosigmoid. There are no pathologically enlarged lymp h nodes. The appendix is not inflamed. There is no small bowel obstruction. No inflammatory changes a re identified. IMPRESSION: 1. Metastatic disease throughout the lung bases is not clearly changed over the short interval. 2. No cause for abdominal pain is identified. Electronically signed by: Magen Camacho MD (01/01/2021 11:26 AM) [id number]
== END ==
LOC: CT 09:29
PROVIDERS: ATTEND Internal Medicine Hematology & Oncology
DX: C18.7 Malignant neoplasm of sigmoid colon (principal)
CPT/HCPCS: 74177; Q9966; Q9967

== ENCOUNTER → 2021-01-01 | Outpatient (CLI) | payer OTHER ==
[2020-11-29 08:13] VITALS: BP 123/68
[~2021-01-01] MED LIST changes: -IOHEXOL 240 MG/ML 50ML VIAL. PO ONE; -IOHEXOL 300 MG/ML 100ML VIAL. IV ONE
[2021-01-01 08:50] LABS: BASO # 0.1 x10^3/uL (0.0-0.2); BASO % 1 % (0-3); EOS % 0 % (0-3); HEMATOCRIT 39.7 % (36.0-47.0); HEMOGLOBIN 13.8 g/dL (12.0-15.5); LYMPH # 0.9 x10^3/uL (1.0-4.8); LYMPH % 9 % (24-48); MEAN CORPUSCULAR HEMOGLOBIN 33 pg (25-35); MEAN CORPUSCULAR HGB CONC 35 g/dL (31-37); MEAN CORPUSCULAR VOLUME 95 fL (79-100); MONO # 0.3 x10^3/uL (0.0-1.1); MONO % 3 % (0-9); NEUT # 8.1 x10^3/uL (1.8-7.7); NEUT % 87 % (31-73); PLATELET COUNT 316 x10^3/uL (140-400); RED BLOOD COUNT 4.17 x10^6/uL (3.50-5.40); RED CELL DISTRIBUTION WIDTH 13.3 % (11.5-14.5); WHITE BLOOD COUNT 9.3 x10^3/uL (4.0-11.0)
[2021-01-01 09:06] LABS: CALCIUM 9.5 mg/dL (8.5-10.1); CREATININE 0.9 mg/dL (0.6-1.0); GFR 68.3; POTASSIUM 3.6 mmol/L (3.5-5.1)
[2021-01-01 09:13] LABS: ALBUMIN 4.4 g/dL (3.4-5.0); ALBUMIN/GLOBULIN RATIO 1.4 (1.0-1.7); TOTAL BILIRUBIN 0.8 mg/dL (0.2-1.0); TOTAL PROTEIN 7.6 g/dL (6.4-8.2)
[2021-01-01 11:06] LABS: % LYMPHS 11 % (24-48); % MONOS 2 % (0-10); % SEGS 87 % (35-66); PLT ESTIMATE ADEQUATE (ADEQUATE)
[2021-01-02 09:37] LABS: AMYLASE 125 U/L (25-115); LIPASE 257 U/L (73-393)
== END ==
LOC: ONCLAB 08:27
PROVIDERS: ATTEND Internal Medicine Hematology & Oncology
DX: C18.7 Malignant neoplasm of sigmoid colon (principal)
CPT/HCPCS: 36415; 80053; 82150; 82378; 83690; 85007; 85025

== ENCOUNTER → 2021-01-08 | Outpatient (CLI) | payer OTHER ==
[2020-11-29 08:13] VITALS: BP 123/68
[2021-01-08 09:20] LABS: BASO % 1 % (0-3); EOS # 0.1 x10^3/uL (0.0-0.7); EOS % 1 % (0-3); HEMATOCRIT 37.1 % (36.0-47.0); HEMOGLOBIN 12.6 g/dL (12.0-15.5); LYMPH # 1.1 x10^3/uL (1.0-4.8); LYMPH % 18 % (24-48); MEAN CORPUSCULAR HEMOGLOBIN 33 pg (25-35); MEAN CORPUSCULAR HGB CONC 34 g/dL (31-37); MEAN CORPUSCULAR VOLUME 98 fL (79-100); MONO # 0.5 x10^3/uL (0.0-1.1); MONO % 8 % (0-9); NEUT # 4.5 x10^3/uL (1.8-7.7); NEUT % 73 % (31-73); PLATELET COUNT 214 x10^3/uL (140-400); RED BLOOD COUNT 3.79 x10^6/uL (3.50-5.40); RED CELL DISTRIBUTION WIDTH 13.6 % (11.5-14.5); WHITE BLOOD COUNT 6.2 x10^3/uL (4.0-11.0)
[2021-01-08 09:32] LABS: CALCIUM 8.5 mg/dL (8.5-10.1); CREATININE 0.9 mg/dL (0.6-1.0); GFR 68.3; POTASSIUM 4.3 mmol/L (3.5-5.1)
[2021-01-08 09:35] LABS: CREATININE,RANDOM URINE < 13.0 mg/dL (Not Establ.)
[2021-01-08 09:38] LABS: ALBUMIN 3.8 g/dL (3.4-5.0); ALBUMIN/GLOBULIN RATIO 1.4 (1.0-1.7); TOTAL BILIRUBIN 0.5 mg/dL (0.2-1.0); TOTAL PROTEIN 6.5 g/dL (6.4-8.2)
== END ==
LOC: ONCLAB 08:46
PROVIDERS: ATTEND Internal Medicine Hematology & Oncology
DX: C18.7 Malignant neoplasm of sigmoid colon (principal)
CPT/HCPCS: 36415; 80053; 82378; 82570; 84156; 85025

== ENCOUNTER → 2021-01-15 | Outpatient (CLI) | payer OTHER ==
[2020-11-29 08:13] VITALS: BP 123/68
[2021-01-15 08:30] LABS: BASO % 0 % (0-3); EOS # 0.1 x10^3/uL (0.0-0.7); EOS % 4 % (0-3); HEMATOCRIT 39.2 % (36.0-47.0); HEMOGLOBIN 13.3 g/dL (12.0-15.5); LYMPH # 1.2 x10^3/uL (1.0-4.8); LYMPH % 36 % (24-48); MEAN CORPUSCULAR HEMOGLOBIN 33 pg (25-35); MEAN CORPUSCULAR HGB CONC 34 g/dL (31-37); MEAN CORPUSCULAR VOLUME 96 fL (79-100); MONO # 0.1 x10^3/uL (0.0-1.1); MONO % 4 % (0-9); NEUT # 1.8 x10^3/uL (1.8-7.7); NEUT % 56 % (31-73); PLATELET COUNT 177 x10^3/uL (140-400); RED BLOOD COUNT 4.07 x10^6/uL (3.50-5.40); WHITE BLOOD COUNT 3.2 x10^3/uL (4.0-11.0)
[2021-01-15 08:31] LABS: CALCIUM 8.9 mg/dL (8.5-10.1); CREATININE 0.9 mg/dL (0.6-1.0); POTASSIUM 4.4 mmol/L (3.5-5.1)
[2021-01-15 08:36] LABS: ALBUMIN/GLOBULIN RATIO 1.4 (1.0-1.7); TOTAL BILIRUBIN 0.4 mg/dL (0.2-1.0); TOTAL PROTEIN 6.9 g/dL (6.4-8.2)
== END ==
LOC: ONCLAB 08:04
PROVIDERS: ATTEND Internal Medicine Hematology & Oncology
DX: C18.7 Malignant neoplasm of sigmoid colon (principal)
CPT/HCPCS: 36415; 80053; 85025

== ENCOUNTER → 2021-01-22 | Outpatient (CLI) | payer OTHER ==
[2020-11-29 08:13] VITALS: BP 123/68
[2021-01-22 09:17] LABS: BASO % 1 % (0-3); EOS # 0.1 x10^3/uL (0.0-0.7); EOS % 3 % (0-3); HEMATOCRIT 36.3 % (36.0-47.0); HEMOGLOBIN 12.4 g/dL (12.0-15.5); LYMPH # 1.5 x10^3/uL (1.0-4.8); LYMPH % 57 % (24-48); MEAN CORPUSCULAR HEMOGLOBIN 33 pg (25-35); MEAN CORPUSCULAR HGB CONC 34 g/dL (31-37); MEAN CORPUSCULAR VOLUME 96 fL (79-100); MONO # 0.3 x10^3/uL (0.0-1.1); MONO % 13 % (0-9); NEUT # 0.7 x10^3/uL (1.8-7.7); NEUT % 27 % (31-73); PLATELET COUNT 231 x10^3/uL (140-400); RED CELL DISTRIBUTION WIDTH 13.5 % (11.5-14.5); WHITE BLOOD COUNT 2.6 x10^3/uL (4.0-11.0)
[2021-01-22 09:26] LABS: CALCIUM 8.6 mg/dL (8.5-10.1); CREATININE 0.8 mg/dL (0.6-1.0); GFR 77.9
[2021-01-22 09:33] LABS: ALBUMIN 3.9 g/dL (3.4-5.0); ALBUMIN/GLOBULIN RATIO 1.4 (1.0-1.7); TOTAL BILIRUBIN 0.6 mg/dL (0.2-1.0); TOTAL PROTEIN 6.7 g/dL (6.4-8.2)
[2021-01-22 12:13] LABS: CREATININE,RANDOM URINE 96.1 mg/dL (Not Establ.)
== END ==
LOC: ONCLAB 08:33
PROVIDERS: ATTEND Physician Assistant
DX: C18.7 Malignant neoplasm of sigmoid colon (principal)
CPT/HCPCS: 36415; 80053; 82378; 82570; 84156; 85025

== ENCOUNTER → 2021-01-30 | Outpatient (CLI) | payer OTHER ==
[2020-11-29 08:13] VITALS: BP 123/68
[~2021-01-30] MED LIST changes: +PANT20TA2 PO
[2021-01-30 08:59] LABS: BASO % 1 % (0-3); EOS % 1 % (0-3); HEMATOCRIT 41.4 % (36.0-47.0); HEMOGLOBIN 13.9 g/dL (12.0-15.5); LYMPH # 1.6 x10^3/uL (1.0-4.8); LYMPH % 27 % (24-48); MEAN CORPUSCULAR HEMOGLOBIN 32 pg (25-35); MEAN CORPUSCULAR HGB CONC 34 g/dL (31-37); MEAN CORPUSCULAR VOLUME 96 fL (79-100); MONO # 0.4 x10^3/uL (0.0-1.1); MONO % 6 % (0-9); NEUT # 3.9 x10^3/uL (1.8-7.7); NEUT % 66 % (31-73); PLATELET COUNT 196 x10^3/uL (140-400); RED BLOOD COUNT 4.31 x10^6/uL (3.50-5.40); RED CELL DISTRIBUTION WIDTH 13.8 % (11.5-14.5); WHITE BLOOD COUNT 5.9 x10^3/uL (4.0-11.0)
[2021-01-30 09:08] LABS: CALCIUM 9.1 mg/dL (8.5-10.1); CREATININE 0.8 mg/dL (0.6-1.0); GFR 77.9; POTASSIUM 3.7 mmol/L (3.5-5.1)
[2021-01-30 09:15] LABS: ALBUMIN/GLOBULIN RATIO 1.4 (1.0-1.7); TOTAL BILIRUBIN 0.6 mg/dL (0.2-1.0); TOTAL PROTEIN 6.9 g/dL (6.4-8.2)
[2021-01-30 09:27] LABS: CREATININE,RANDOM URINE 50.3 mg/dL (Not Establ.)
[2021-01-30 09:36] LABS: % BANDS 2 % (0-9); % EOS 1 % (0-5); % LYMPHS 30 % (24-48); % MONOS 9 % (0-10); % SEGS 58 % (35-66)
[2021-01-30 09:39] LABS: PLT ESTIMATE ADEQUATE (ADEQUATE)
== END ==
LOC: ONCLAB 08:17
PROVIDERS: ATTEND Internal Medicine Hematology & Oncology
DX: C18.7 Malignant neoplasm of sigmoid colon (principal)
CPT/HCPCS: 36415; 80053; 82378; 82570; 84156; 85007; 85025

== ENCOUNTER → 2021-02-12 | Outpatient (CLI) | payer OTHER ==
[2020-11-29 08:13] VITALS: BP 123/68
[~2021-02-12] MED LIST changes: -PANT20TA2 PO
[2021-02-12 08:49] LABS: BASO % 1 % (0-3); EOS # 0.1 x10^3/uL (0.0-0.7); EOS % 4 % (0-3); HEMATOCRIT 38.4 % (36.0-47.0); LYMPH # 1.5 x10^3/uL (1.0-4.8); LYMPH % 55 % (24-48); MEAN CORPUSCULAR HEMOGLOBIN 32 pg (25-35); MEAN CORPUSCULAR HGB CONC 34 g/dL (31-37); MEAN CORPUSCULAR VOLUME 95 fL (79-100); MONO # 0.2 x10^3/uL (0.0-1.1); MONO % 8 % (0-9); NEUT # 0.9 x10^3/uL (1.8-7.7); NEUT % 32 % (31-73); PLATELET COUNT 198 x10^3/uL (140-400); RED BLOOD COUNT 4.05 x10^6/uL (3.50-5.40); WHITE BLOOD COUNT 2.7 x10^3/uL (4.0-11.0)
[2021-02-12 08:55] LABS: CALCIUM 8.8 mg/dL (8.5-10.1); CREATININE 0.8 mg/dL (0.6-1.0); GFR 77.9; POTASSIUM 4.2 mmol/L (3.5-5.1)
[2021-02-12 09:01] LABS: ALBUMIN 3.7 g/dL (3.4-5.0); ALBUMIN/GLOBULIN RATIO 1.2 (1.0-1.7); TOTAL BILIRUBIN 0.4 mg/dL (0.2-1.0); TOTAL PROTEIN 6.7 g/dL (6.4-8.2)
[2021-02-12 09:44] LABS: % EOS 3 % (0-5); % LYMPHS 65 % (24-48); % MONOS 2 % (0-10); % SEGS 30 % (35-66); ANISOCYTOSIS SLIGHT; OVALOCYTES OCC; PLT ESTIMATE ADEQUATE (ADEQUATE)
== END ==
LOC: ONCLAB 08:15
PROVIDERS: ATTEND Physician Assistant
DX: C18.7 Malignant neoplasm of sigmoid colon (principal)
CPT/HCPCS: 36415; 80053; 82378; 82570; 84156; 85007; 85025

== ENCOUNTER → 2021-02-19 | Outpatient (CLI) | payer OTHER ==
[2020-11-29 08:13] VITALS: BP 123/68
[2021-02-19 08:39] LABS: BASO # 0.1 x10^3/uL (0.0-0.2); BASO % 1 % (0-3); EOS # 0.1 x10^3/uL (0.0-0.7); EOS % 1 % (0-3); HEMATOCRIT 40.4 % (36.0-47.0); HEMOGLOBIN 13.5 g/dL (12.0-15.5); LYMPH # 1.8 x10^3/uL (1.0-4.8); LYMPH % 18 % (24-48); MEAN CORPUSCULAR HEMOGLOBIN 32 pg (25-35); MEAN CORPUSCULAR HGB CONC 33 g/dL (31-37); MEAN CORPUSCULAR VOLUME 96 fL (79-100); MONO # 0.4 x10^3/uL (0.0-1.1); MONO % 4 % (0-9); NEUT # 7.7 x10^3/uL (1.8-7.7); NEUT % 76 % (31-73); PLATELET COUNT 187 x10^3/uL (140-400); RED BLOOD COUNT 4.21 x10^6/uL (3.50-5.40); RED CELL DISTRIBUTION WIDTH 15.2 % (11.5-14.5)
[2021-02-19 08:45] LABS: CALCIUM 9.2 mg/dL (8.5-10.1); GFR 60.2; POTASSIUM 4.2 mmol/L (3.5-5.1)
[2021-02-19 08:52] LABS: ALBUMIN 3.8 g/dL (3.4-5.0); ALBUMIN/GLOBULIN RATIO 1.3 (1.0-1.7); TOTAL BILIRUBIN 0.3 mg/dL (0.2-1.0); TOTAL PROTEIN 6.7 g/dL (6.4-8.2)
[2021-02-19 11:17] LABS: % BANDS 19 % (0-9); % EOS 1 % (0-5); % LYMPHS 22 % (24-48); % METAS 4 % (0-0); % MONOS 2 % (0-10); % SEGS 52 % (35-66); PLT ESTIMATE ADEQUATE (ADEQUATE)
== END ==
LOC: ONCLAB 08:24
PROVIDERS: ATTEND Physician Assistant
DX: C18.7 Malignant neoplasm of sigmoid colon (principal)
CPT/HCPCS: 36415; 80053; 82378; 82570; 84156; 85007; 85025

== ENCOUNTER → 2021-03-01 | Outpatient (CLI) | payer OTHER ==
[2020-11-29 08:13] VITALS: BP 123/68
[2021-03-01 08:50] LABS: BASO % 0 % (0-3); EOS % 0 % (0-3); HEMATOCRIT 36.9 % (36.0-47.0); HEMOGLOBIN 12.8 g/dL (12.0-15.5); LYMPH # 0.5 x10^3/uL (1.0-4.8); LYMPH % 15 % (24-48); MEAN CORPUSCULAR HEMOGLOBIN 32 pg (25-35); MEAN CORPUSCULAR HGB CONC 35 g/dL (31-37); MEAN CORPUSCULAR VOLUME 91 fL (79-100); MONO # 0.2 x10^3/uL (0.0-1.1); MONO % 6 % (0-9); NEUT # 2.6 x10^3/uL (1.8-7.7); NEUT % 79 % (31-73); PLATELET COUNT 197 x10^3/uL (140-400); RED BLOOD COUNT 4.04 x10^6/uL (3.50-5.40); RED CELL DISTRIBUTION WIDTH 14.5 % (11.5-14.5); WHITE BLOOD COUNT 3.4 x10^3/uL (4.0-11.0)
[2021-03-01 09:00] LABS: CALCIUM 9.4 mg/dL (8.5-10.1); CREATININE 0.7 mg/dL (0.6-1.0); GFR 90.9; POTASSIUM 3.7 mmol/L (3.5-5.1)
[2021-03-01 09:06] LABS: ALBUMIN 4.3 g/dL (3.4-5.0); ALBUMIN/GLOBULIN RATIO 1.3 (1.0-1.7); TOTAL BILIRUBIN 0.7 mg/dL (0.2-1.0); TOTAL PROTEIN 7.5 g/dL (6.4-8.2)
== END ==
LOC: ONCLAB 08:32
PROVIDERS: ATTEND Internal Medicine Hematology & Oncology
DX: C18.7 Malignant neoplasm of sigmoid colon (principal)
CPT/HCPCS: 36415; 80053; 85025

== ENCOUNTER → 2021-03-20 | Outpatient (CLI) | payer OTHER ==
[2020-11-29 08:13] VITALS: BP 123/68
[2021-03-20 09:25] LABS: CALCIUM 8.8 mg/dL (8.5-10.1); CREATININE 0.8 mg/dL (0.6-1.0); GFR 77.9; POTASSIUM 4.2 mmol/L (3.5-5.1)
[2021-03-20 09:40] LABS: ALBUMIN 3.4 g/dL (3.4-5.0); ALBUMIN/GLOBULIN RATIO 1.2 (1.0-1.7); TOTAL BILIRUBIN 0.3 mg/dL (0.2-1.0); TOTAL PROTEIN 6.3 g/dL (6.4-8.2)
[2021-03-20 09:41] LABS: BASO % 0 % (0-3); EOS % 0 % (0-3); HEMOGLOBIN 12.1 g/dL (12.0-15.5); LYMPH # 1.3 x10^3/uL (1.0-4.8); LYMPH % 18 % (24-48); MEAN CORPUSCULAR HEMOGLOBIN 32 pg (25-35); MEAN CORPUSCULAR HGB CONC 34 g/dL (31-37); MEAN CORPUSCULAR VOLUME 95 fL (79-100); MONO # 0.2 x10^3/uL (0.0-1.1); MONO % 3 % (0-9); NEUT # 5.5 x10^3/uL (1.8-7.7); NEUT % 78 % (31-73); PLATELET COUNT 121 x10^3/uL (140-400); RED BLOOD COUNT 3.79 x10^6/uL (3.50-5.40); RED CELL DISTRIBUTION WIDTH 16.7 % (11.5-14.5); WHITE BLOOD COUNT 7.1 x10^3/uL (4.0-11.0)
== END ==
LOC: ONCLAB 08:46
PROVIDERS: ATTEND Internal Medicine Hematology & Oncology
DX: C18.7 Malignant neoplasm of sigmoid colon (principal)
CPT/HCPCS: 36415; 80053; 82378; 85025

== ENCOUNTER → 2021-04-03 | Outpatient (CLI) | payer OTHER ==
[2020-11-29 08:13] VITALS: BP 123/68
[~2021-04-03] MED LIST changes: +PANT20TA2 PO
[2021-04-03 09:49] LABS: BASO % 1 % (0-3); EOS % 1 % (0-3); HEMATOCRIT 34.7 % (36.0-47.0); HEMOGLOBIN 11.6 g/dL (12.0-15.5); LYMPH # 0.8 x10^3/uL (1.0-4.8); LYMPH % 21 % (24-48); MEAN CORPUSCULAR HEMOGLOBIN 32 pg (25-35); MEAN CORPUSCULAR HGB CONC 34 g/dL (31-37); MEAN CORPUSCULAR VOLUME 96 fL (79-100); MONO # 0.4 x10^3/uL (0.0-1.1); MONO % 11 % (0-9); NEUT # 2.4 x10^3/uL (1.8-7.7); NEUT % 66 % (31-73); PLATELET COUNT 191 x10^3/uL (140-400); RED BLOOD COUNT 3.63 x10^6/uL (3.50-5.40); RED CELL DISTRIBUTION WIDTH 17.3 % (11.5-14.5); WHITE BLOOD COUNT 3.7 x10^3/uL (4.0-11.0)
[2021-04-03 09:56] LABS: CALCIUM 8.8 mg/dL (8.5-10.1); CREATININE 0.9 mg/dL (0.6-1.0); POTASSIUM 3.8 mmol/L (3.5-5.1)
[2021-04-03 10:02] LABS: ALBUMIN 3.5 g/dL (3.4-5.0); ALBUMIN/GLOBULIN RATIO 1.2 (1.0-1.7); TOTAL BILIRUBIN 0.5 mg/dL (0.2-1.0); TOTAL PROTEIN 6.5 g/dL (6.4-8.2)
[2021-04-03 11:40] LABS: CREATININE,RANDOM URINE 66.9 mg/dL (Not Establ.)
== END ==
LOC: ONCLAB 09:12
PROVIDERS: ATTEND Internal Medicine Hematology & Oncology
DX: C18.7 Malignant neoplasm of sigmoid colon (principal)
CPT/HCPCS: 36415; 80053; 82378; 82570; 84156; 85025

== ENCOUNTER 2021-04-04 07:01 | Outpatient (CLI) | payer OTHER ==
[~2021-04-04] VITALS: Ht 172.7 cm; Wt 63.2 kg
[~2021-04-04 07:01] MED LIST changes: -PANT20TA2 PO
[2021-04-04 07:36] VITALS: BP 90/59
[2021-04-04] MEDS ORDERED: IOHEXOL 240 MG/ML 50ML VIAL. ONE (07:52)
[2021-04-04] MEDS ORDERED: PANT20TA2 PO (07:55)
--- NOTE | 2021-04-04 08:40 | NUR ---
Pt here for port check, accessed without difficulty, good blood return. Dr Michaud checked with contrast bolus. Portacath left accessed for patient to go to complete chemo treatment. MAR COTA
[2021-04-04] MEDS ORDERED: IOHEXOL 240 MG/ML 50ML VIAL. IV ONE (08:45)
--- NOTE | 2021-04-04 08:56 | NUR ---
Pt port in good working order. Port accessed per Dr. Michaud and access left in. VSS. Pt denies any pain, discomfort, or SOB. Cancer center called; and Pt. wheeled over to medical building for treatment.
--- NOTE | 2021-04-04 13:31 | RAD ---
Fluoroscopic evaluation, left subclavian vein port 04/04/2021 INDICATION: Port malfunction Discussion: Consent: The procedure was explained in its entirety to the patient or the patients designated repres entative by a member of the treatment team, including a discussion of the risks, benefits and commonl y accepted alternatives to the procedure, as well as the expected consequences of no therapy whatsoev er. Discussion of the risks included, but was not limited to, those that are most frequent and thos e that are rare but possibly severe or life-threatening, as well as the possibility of unforeseen com plications. The port was accessed using sterile barrier technique. Fluoroscopic inspection demonstrates left subc lavian catheter terminates expected region of the cavoatrial junction. Contrast was administered to t he port without evidence of extravasation, leak, or fracture. Contrast flows freely from the catheter and into the right atrium without evidence of fibrin sheath or other abnormality. Total fluoroscopy time: 0.3 minutes Dose area product 7 Everett centimeter squared IMPRESSION: Normal fluoroscopic appearance and function of a left subclavian port. The port was left accessed for treatment, scheduled same day. Sterile dressings were applied. Electronically signed by: Nate Michaud MD (04/04/2021 1:29 PM) [id number]
== END 2021-04-04 09:10 | disposition home or self-care (01) ==
LOC: INTRAD 07:01
PROVIDERS: ATTEND Physician Assistant
DX: T82.598A Other mechanical complication of other cardiac and vascular devices and implants, initial encounter (principal); C18.9 Malignant neoplasm of colon, unspecified; J45.909 Unspecified asthma, uncomplicated; K21.9 Gastro-esophageal reflux disease without esophagitis; Z92.21 Personal history of antineoplastic chemotherapy; Z90.710 Acquired absence of both cervix and uterus; Z98.51 Tubal ligation status; Z98.890 Other specified postprocedural states; Z87.891 Personal history of nicotine dependence; Z88.1 Allergy status to other antibiotic agents; Z88.8 Allergy status to other drugs, medicaments and biological substances; Z20.822 Contact with and (suspected) exposure to COVID-19; Y83.8 Other surgical procedures as the cause of abnormal reaction of the patient, or of later complication, without mention of misadventure at the time of the procedure
CPT/HCPCS: 36598; 87426; Q9966; 75827

== ENCOUNTER → 2021-04-17 | Outpatient (CLI) | payer OTHER ==
[2021-04-04 07:36] VITALS: BP 90/59
[~2021-04-17] MED LIST changes: +PANT20TA2 PO
== END ==
LOC: ONCLAB 10:10
PROVIDERS: ATTEND Physician Assistant
DX: C18.7 Malignant neoplasm of sigmoid colon (principal)
CPT/HCPCS: 82570; 84156

== ENCOUNTER → 2021-05-29 | Outpatient (CLI) | payer OTHER ==
[2021-05-29 09:38] LABS: BASO % 1 % (0-3); EOS % 1 % (0-3); HEMATOCRIT 36.2 % (36.0-47.0); HEMOGLOBIN 11.8 g/dL (12.0-15.5); LYMPH % 27 % (24-48); MEAN CORPUSCULAR HEMOGLOBIN 31 pg (25-35); MEAN CORPUSCULAR HGB CONC 33 g/dL (31-37); MEAN CORPUSCULAR VOLUME 93 fL (79-100); MONO # 0.4 x10^3/uL (0.0-1.1); MONO % 11 % (0-9); NEUT # 2.3 x10^3/uL (1.8-7.7); NEUT % 60 % (31-73); PLATELET COUNT 194 x10^3/uL (140-400); RED BLOOD COUNT 3.88 x10^6/uL (3.50-5.40); RED CELL DISTRIBUTION WIDTH 16.4 % (11.5-14.5); WHITE BLOOD COUNT 3.8 x10^3/uL (4.0-11.0)
[2021-05-29 09:45] LABS: CALCIUM 8.5 mg/dL (8.5-10.1); CREATININE 0.9 mg/dL (0.6-1.0); POTASSIUM 4.3 mmol/L (3.5-5.1)
[2021-05-29 09:51] LABS: ALBUMIN 3.6 g/dL (3.4-5.0); ALBUMIN/GLOBULIN RATIO 1.2 (1.0-1.7); TOTAL BILIRUBIN 0.5 mg/dL (0.2-1.0); TOTAL PROTEIN 6.7 g/dL (6.4-8.2)
== END ==
LOC: ONCLAB 09:12
PROVIDERS: ATTEND Physician Assistant
DX: C18.7 Malignant neoplasm of sigmoid colon (principal)
CPT/HCPCS: 36415; 80053; 82378; 82570; 84156; 85025

== ENCOUNTER → 2021-06-12 | Outpatient (CLI) | payer OTHER ==
[2021-06-12 10:13] LABS: BASO % 1 % (0-3); EOS % 1 % (0-3); HEMATOCRIT 35.9 % (36.0-47.0); HEMOGLOBIN 11.9 g/dL (12.0-15.5); LYMPH # 1.2 x10^3/uL (1.0-4.8); LYMPH % 32 % (24-48); MEAN CORPUSCULAR HEMOGLOBIN 30 pg (25-35); MEAN CORPUSCULAR HGB CONC 33 g/dL (31-37); MEAN CORPUSCULAR VOLUME 91 fL (79-100); MONO # 0.4 x10^3/uL (0.0-1.1); MONO % 10 % (0-9); NEUT # 2.2 x10^3/uL (1.8-7.7); NEUT % 56 % (31-73); PLATELET COUNT 191 x10^3/uL (140-400); RED BLOOD COUNT 3.95 x10^6/uL (3.50-5.40); RED CELL DISTRIBUTION WIDTH 16.5 % (11.5-14.5); WHITE BLOOD COUNT 3.8 x10^3/uL (4.0-11.0)
[2021-06-12 10:35] LABS: CALCIUM 8.7 mg/dL (8.5-10.1); GFR 60.2; POTASSIUM 4.3 mmol/L (3.5-5.1)
[2021-06-12 10:36] LABS: CREATININE,RANDOM URINE 23.1 mg/dL (Not Establ.)
[2021-06-12 10:42] LABS: ALBUMIN 3.4 g/dL (3.4-5.0); ALBUMIN/GLOBULIN RATIO 1.1 (1.0-1.7); TOTAL BILIRUBIN 0.5 mg/dL (0.2-1.0); TOTAL PROTEIN 6.4 g/dL (6.4-8.2)
== END ==
LOC: ONCLAB 09:58
PROVIDERS: ATTEND Physician Assistant
DX: C18.7 Malignant neoplasm of sigmoid colon (principal)
CPT/HCPCS: 36415; 80053; 82378; 82570; 84156; 85025

== ENCOUNTER → 2021-06-26 | Outpatient (CLI) | payer OTHER ==
[2021-06-26 09:26] LABS: BASO % 1 % (0-3); EOS # 0.1 x10^3/uL (0.0-0.7); EOS % 2 % (0-3); HEMATOCRIT 38.3 % (36.0-47.0); HEMOGLOBIN 12.4 g/dL (12.0-15.5); LYMPH # 1.5 x10^3/uL (1.0-4.8); LYMPH % 29 % (24-48); MEAN CORPUSCULAR HEMOGLOBIN 30 pg (25-35); MEAN CORPUSCULAR HGB CONC 33 g/dL (31-37); MEAN CORPUSCULAR VOLUME 92 fL (79-100); MONO # 0.6 x10^3/uL (0.0-1.1); MONO % 11 % (0-9); NEUT # 2.9 x10^3/uL (1.8-7.7); NEUT % 57 % (31-73); PLATELET COUNT 209 x10^3/uL (140-400); RED BLOOD COUNT 4.15 x10^6/uL (3.50-5.40); WHITE BLOOD COUNT 5.1 x10^3/uL (4.0-11.0)
[2021-06-26 10:07] LABS: CALCIUM 8.8 mg/dL (8.5-10.1); GFR 60.2; POTASSIUM 3.9 mmol/L (3.5-5.1)
[2021-06-26 10:12] LABS: ALBUMIN 3.3 g/dL (3.4-5.0); TOTAL BILIRUBIN 0.5 mg/dL (0.2-1.0); TOTAL PROTEIN 6.5 g/dL (6.4-8.2)
== END ==
LOC: ONCLAB 09:11
PROVIDERS: ATTEND Internal Medicine Hematology & Oncology
DX: C18.7 Malignant neoplasm of sigmoid colon (principal)
CPT/HCPCS: 36415; 80053; 82378; 85025

== ENCOUNTER → 2021-06-29 | Outpatient (CLI) | payer OTHER ==
--- NOTE | 2021-06-29 09:57 | KCIC ---
MR LUMBAR SPINE [id number] 06/29/2021 8:30 AM INDICATION: Metastatic lung cancer. Chronic low back pain. COMPARISON: None available. TECHNIQUE: Multiplanar, multisequence MR imaging of the lumbar sinus performed without contrast. FINDINGS: There is 4 mm retrolisthesis of L4 on L5. Vertebral body heights are maintained. Marrow signal intens ity is normal in all sequences with exception of mild Modic type I endplate degenerative changes asym metric to the right at L4-L5. There is moderate disc height loss at L4-L5 and mild disc height loss L 5-S1 with associated disc desiccation. Conus medullaris terminates at L1-L2. Distal spinal cord signa l intensity is normal in all sequences. No lytic or blastic osseous lesion is identified. Abdominal a pietro is normal in caliber. No suspicious retroperitoneal abnormality is identified. Visualized portio ns of the sacrum appear intact. L2-L3: Disc is normal in configuration. No significant facet arthropathy. No neuroforaminal or spinal canal stenosis. L3-L4: Disc is normal in configuration. Mild to moderate facet arthropathy ligamentum flavum infoldin g. Mild bilateral neural foraminal stenosis. Mild spinal canal stenosis. Mild narrowing of the left l ateral recess. L4-L5: There is a circumferential disc bulge with right foraminal disc protrusion. Moderate facet art hropathy ligamentum flavum infolding. Severe right and moderate left neuroforaminal stenosis. Moderat e spinal canal stenosis. There is right lateral recess stenosis. L5-S1: There is a circumferential disc bulge asymmetric to the right. Moderate facet arthropathy. Mod erate to severe right and moderate left neuroforaminal stenosis. There is left lateral recess stenosi s secondary to anterior projecting osteophyte arising from the left L5-S1 facet. Mild spinal canal st enosis. IMPRESSION: Moderate degenerative changes of lumbar spine as described in detail above. Electronically signed by: Melina Borja MD (06/29/2021 9:54 AM) [id number]
== END ==
LOC: KCIC MRI 08:23
PROVIDERS: ATTEND Internal Medicine Hematology & Oncology
DX: C78.00 Secondary malignant neoplasm of unspecified lung (principal); M47.817 Spondylosis without myelopathy or radiculopathy, lumbosacral region; M54.50 Low back pain, unspecified; G89.29 Other chronic pain; M25.78 Osteophyte, vertebrae; M48.061 Spinal stenosis, lumbar region without neurogenic claudication
CPT/HCPCS: 72148

== ENCOUNTER → 2021-07-03 | Outpatient (CLI) | payer OTHER ==
[2021-07-03 10:17] LABS: BASO % 1 % (0-3); EOS % 0 % (0-3); HEMOGLOBIN 13.1 g/dL (12.0-15.5); LYMPH # 1.8 x10^3/uL (1.0-4.8); LYMPH % 36 % (24-48); MEAN CORPUSCULAR HEMOGLOBIN 30 pg (25-35); MEAN CORPUSCULAR HGB CONC 34 g/dL (31-37); MEAN CORPUSCULAR VOLUME 89 fL (79-100); MONO # 0.3 x10^3/uL (0.0-1.1); MONO % 5 % (0-9); NEUT # 2.9 x10^3/uL (1.8-7.7); NEUT % 58 % (31-73); PLATELET COUNT 221 x10^3/uL (140-400); RED BLOOD COUNT 4.36 x10^6/uL (3.50-5.40); RED CELL DISTRIBUTION WIDTH 16.6 % (11.5-14.5); WHITE BLOOD COUNT 5.1 x10^3/uL (4.0-11.0)
[2021-07-03 10:29] LABS: CALCIUM 8.8 mg/dL (8.5-10.1); GFR 60.2; POTASSIUM 3.1 mmol/L (3.5-5.1)
[2021-07-03 10:35] LABS: ALBUMIN 3.8 g/dL (3.4-5.0); ALBUMIN/GLOBULIN RATIO 1.2 (1.0-1.7); TOTAL BILIRUBIN 0.7 mg/dL (0.2-1.0); TOTAL PROTEIN 6.9 g/dL (6.4-8.2)
== END ==
LOC: ONCLAB 09:44
PROVIDERS: ATTEND Internal Medicine Hematology & Oncology
DX: C18.7 Malignant neoplasm of sigmoid colon (principal)
CPT/HCPCS: 36415; 80053; 85025

== ENCOUNTER → 2021-07-10 | Outpatient (CLI) | payer OTHER ==
[2021-07-10 09:55] LABS: BASO % 1 % (0-3); EOS # 0.1 x10^3/uL (0.0-0.7); EOS % 2 % (0-3); HEMATOCRIT 37.6 % (36.0-47.0); HEMOGLOBIN 12.4 g/dL (12.0-15.5); LYMPH # 1.4 x10^3/uL (1.0-4.8); LYMPH % 36 % (24-48); MEAN CORPUSCULAR HEMOGLOBIN 30 pg (25-35); MEAN CORPUSCULAR HGB CONC 33 g/dL (31-37); MEAN CORPUSCULAR VOLUME 90 fL (79-100); MONO # 0.4 x10^3/uL (0.0-1.1); MONO % 12 % (0-9); NEUT # 1.9 x10^3/uL (1.8-7.7); NEUT % 51 % (31-73); PLATELET COUNT 223 x10^3/uL (140-400); RED BLOOD COUNT 4.19 x10^6/uL (3.50-5.40); RED CELL DISTRIBUTION WIDTH 16.7 % (11.5-14.5); WHITE BLOOD COUNT 3.8 x10^3/uL (4.0-11.0)
[2021-07-10 10:07] LABS: CALCIUM 8.5 mg/dL (8.5-10.1); CREATININE 0.8 mg/dL (0.6-1.0); GFR 77.9; POTASSIUM 3.7 mmol/L (3.5-5.1)
[2021-07-10 10:12] LABS: ALBUMIN 3.3 g/dL (3.4-5.0); ALBUMIN/GLOBULIN RATIO 0.9 (1.0-1.7); TOTAL BILIRUBIN 0.5 mg/dL (0.2-1.0); TOTAL PROTEIN 6.9 g/dL (6.4-8.2)
[2021-07-10 10:54] LABS: CREATININE,RANDOM URINE 195.6 mg/dL (Not Establ.)
== END ==
LOC: ONCLAB 09:44
PROVIDERS: ATTEND Internal Medicine Hematology & Oncology
DX: C18.7 Malignant neoplasm of sigmoid colon (principal)
CPT/HCPCS: 36415; 80053; 82378; 82570; 84156; 85025

== ENCOUNTER → 2021-08-07 | Outpatient (CLI) | payer OTHER ==
[2021-08-07 11:16] LABS: BASO % 1 % (0-3); EOS % 0 % (0-3); HEMATOCRIT 36.4 % (36.0-47.0); HEMOGLOBIN 11.9 g/dL (12.0-15.5); LYMPH # 1.3 x10^3/uL (1.0-4.8); LYMPH % 19 % (24-48); MEAN CORPUSCULAR HEMOGLOBIN 29 pg (25-35); MEAN CORPUSCULAR HGB CONC 33 g/dL (31-37); MEAN CORPUSCULAR VOLUME 87 fL (79-100); MONO # 0.3 x10^3/uL (0.0-1.1); MONO % 5 % (0-9); NEUT # 5.5 x10^3/uL (1.8-7.7); NEUT % 76 % (31-73); PLATELET COUNT 267 x10^3/uL (140-400); RED BLOOD COUNT 4.18 x10^6/uL (3.50-5.40); RED CELL DISTRIBUTION WIDTH 17.7 % (11.5-14.5); WHITE BLOOD COUNT 7.3 x10^3/uL (4.0-11.0)
[2021-08-07 11:21] LABS: CALCIUM 8.5 mg/dL (8.5-10.1); CREATININE 0.8 mg/dL (0.6-1.0); GFR 77.9; POTASSIUM 3.6 mmol/L (3.5-5.1)
[2021-08-07 11:27] LABS: ALBUMIN 2.9 g/dL (3.4-5.0); ALBUMIN/GLOBULIN RATIO 0.7 (1.0-1.7); TOTAL BILIRUBIN 0.4 mg/dL (0.2-1.0); TOTAL PROTEIN 7.2 g/dL (6.4-8.2)
== END ==
LOC: ONCLAB 10:48
PROVIDERS: ATTEND Internal Medicine Hematology & Oncology
DX: C18.7 Malignant neoplasm of sigmoid colon (principal)
CPT/HCPCS: 36415; 80053; 82378; 85025

== ENCOUNTER → 2021-08-14 | Outpatient (CLI) | payer OTHER ==
[2021-08-14 11:01] LABS: CREATININE,RANDOM URINE 93.2 mg/dL (Not Establ.)
== END ==
LOC: ONCLAB 08:41
PROVIDERS: ATTEND Internal Medicine Hematology & Oncology
DX: C18.7 Malignant neoplasm of sigmoid colon (principal)
CPT/HCPCS: 82570; 84156

== ENCOUNTER → 2021-08-28 | Outpatient (CLI) | payer OTHER ==
[2021-08-28 09:53] LABS: BASO % 1 % (0-3); EOS # 0.2 x10^3/uL (0.0-0.7); EOS % 4 % (0-3); HEMOGLOBIN 11.2 g/dL (12.0-15.5); LYMPH # 1.4 x10^3/uL (1.0-4.8); LYMPH % 26 % (24-48); MEAN CORPUSCULAR HEMOGLOBIN 29 pg (25-35); MEAN CORPUSCULAR HGB CONC 33 g/dL (31-37); MEAN CORPUSCULAR VOLUME 87 fL (79-100); MONO # 0.4 x10^3/uL (0.0-1.1); MONO % 8 % (0-9); NEUT # 3.2 x10^3/uL (1.8-7.7); NEUT % 62 % (31-73); PLATELET COUNT 237 x10^3/uL (140-400); RED BLOOD COUNT 3.91 x10^6/uL (3.50-5.40); RED CELL DISTRIBUTION WIDTH 17.2 % (11.5-14.5); WHITE BLOOD COUNT 5.3 x10^3/uL (4.0-11.0)
[2021-08-28 10:10] LABS: CREATININE,RANDOM URINE 55.7 mg/dL (Not Establ.)
[2021-08-28 10:11] LABS: CALCIUM 8.8 mg/dL (8.5-10.1); CREATININE 0.9 mg/dL (0.6-1.0); POTASSIUM 3.8 mmol/L (3.5-5.1)
[2021-08-28 10:17] LABS: ALBUMIN 3.3 g/dL (3.4-5.0); ALBUMIN/GLOBULIN RATIO 0.8 (1.0-1.7); TOTAL BILIRUBIN 0.4 mg/dL (0.2-1.0); TOTAL PROTEIN 7.3 g/dL (6.4-8.2)
== END ==
LOC: ONCLAB 09:24
PROVIDERS: ATTEND Internal Medicine Hematology & Oncology
DX: C18.7 Malignant neoplasm of sigmoid colon (principal)
CPT/HCPCS: 36415; 80053; 82570; 84156; 85025

== ENCOUNTER → 2021-09-11 | Outpatient (CLI) | payer OTHER ==
[2021-09-11 09:29] LABS: BASO # 0.1 x10^3/uL (0.0-0.2); BASO % 1 % (0-3); EOS % 0 % (0-3); HEMATOCRIT 37.4 % (36.0-47.0); HEMOGLOBIN 11.8 g/dL (12.0-15.5); LYMPH % 29 % (24-48); MEAN CORPUSCULAR HEMOGLOBIN 28 pg (25-35); MEAN CORPUSCULAR HGB CONC 32 g/dL (31-37); MEAN CORPUSCULAR VOLUME 88 fL (79-100); MONO # 0.5 x10^3/uL (0.0-1.1); MONO % 8 % (0-9); NEUT # 4.1 x10^3/uL (1.8-7.7); NEUT % 61 % (31-73); PLATELET COUNT 241 x10^3/uL (140-400); RED BLOOD COUNT 4.23 x10^6/uL (3.50-5.40); RED CELL DISTRIBUTION WIDTH 17.6 % (11.5-14.5); WHITE BLOOD COUNT 6.7 x10^3/uL (4.0-11.0)
[2021-09-11 09:43] LABS: CALCIUM 8.3 mg/dL (8.5-10.1); CREATININE 0.9 mg/dL (0.6-1.0); POTASSIUM 3.3 mmol/L (3.5-5.1)
[2021-09-11 09:50] LABS: ALBUMIN 3.2 g/dL (3.4-5.0); TOTAL BILIRUBIN 0.4 mg/dL (0.2-1.0); TOTAL PROTEIN 6.4 g/dL (6.4-8.2)
[2021-09-11 10:39] LABS: CREATININE,RANDOM URINE 213.8 mg/dL (Not Establ.)
== END ==
LOC: ONCLAB 09:08
PROVIDERS: ATTEND Internal Medicine Hematology & Oncology
DX: C18.7 Malignant neoplasm of sigmoid colon (principal)
CPT/HCPCS: 36415; 80053; 82570; 84156; 85025

== ENCOUNTER → 2021-09-25 | Outpatient (CLI) | payer OTHER ==
[2021-09-25 09:34] LABS: BASO % 1 % (0-3); EOS % 1 % (0-3); HEMATOCRIT 35.1 % (36.0-47.0); HEMOGLOBIN 11.3 g/dL (12.0-15.5); LYMPH # 1.4 x10^3/uL (1.0-4.8); LYMPH % 45 % (24-48); MEAN CORPUSCULAR HEMOGLOBIN 28 pg (25-35); MEAN CORPUSCULAR HGB CONC 32 g/dL (31-37); MEAN CORPUSCULAR VOLUME 86 fL (79-100); MONO # 0.4 x10^3/uL (0.0-1.1); MONO % 12 % (0-9); NEUT # 1.3 x10^3/uL (1.8-7.7); NEUT % 42 % (31-73); PLATELET COUNT 148 x10^3/uL (140-400); RED BLOOD COUNT 4.07 x10^6/uL (3.50-5.40); RED CELL DISTRIBUTION WIDTH 18.5 % (11.5-14.5)
[2021-09-25 09:52] LABS: CALCIUM 8.3 mg/dL (8.5-10.1); CREATININE 0.9 mg/dL (0.6-1.0); POTASSIUM 4.3 mmol/L (3.5-5.1)
[2021-09-25 09:59] LABS: ALBUMIN 3.3 g/dL (3.4-5.0); TOTAL BILIRUBIN 0.4 mg/dL (0.2-1.0); TOTAL PROTEIN 6.5 g/dL (6.4-8.2)
== END ==
LOC: ONCLAB 09:15
PROVIDERS: ATTEND Internal Medicine Hematology & Oncology
DX: C18.7 Malignant neoplasm of sigmoid colon (principal)
CPT/HCPCS: 36415; 80053; 82570; 84156; 85025

== ENCOUNTER → 2021-10-02 | Outpatient (CLI) | payer OTHER ==
[2021-10-02 10:04] LABS: BASO % 1 % (0-3); EOS # 0.1 x10^3/uL (0.0-0.7); EOS % 2 % (0-3); HEMATOCRIT 36.2 % (36.0-47.0); HEMOGLOBIN 11.5 g/dL (12.0-15.5); LYMPH # 1.5 x10^3/uL (1.0-4.8); LYMPH % 37 % (24-48); MEAN CORPUSCULAR HEMOGLOBIN 28 pg (25-35); MEAN CORPUSCULAR HGB CONC 32 g/dL (31-37); MEAN CORPUSCULAR VOLUME 89 fL (79-100); MONO # 0.4 x10^3/uL (0.0-1.1); MONO % 9 % (0-9); NEUT % 51 % (31-73); PLATELET COUNT 224 x10^3/uL (140-400); RED BLOOD COUNT 4.08 x10^6/uL (3.50-5.40); RED CELL DISTRIBUTION WIDTH 18.5 % (11.5-14.5); WHITE BLOOD COUNT 3.9 x10^3/uL (4.0-11.0)
[2021-10-02 10:16] LABS: CREATININE 0.9 mg/dL (0.6-1.0); POTASSIUM 3.8 mmol/L (3.5-5.1)
[2021-10-02 10:17] LABS: ALBUMIN 3.6 g/dL (3.4-5.0); ALBUMIN/GLOBULIN RATIO 1.1 (1.0-1.7); TOTAL BILIRUBIN 0.4 mg/dL (0.2-1.0)
== END ==
LOC: ONCLAB 09:35
PROVIDERS: ATTEND Internal Medicine Hematology & Oncology
DX: C18.7 Malignant neoplasm of sigmoid colon (principal)
CPT/HCPCS: 36415; 80053; 82378; 85025

== ENCOUNTER → 2021-10-08 | Outpatient (CLI) | payer MEDICAID ==
[~2021-10-08] MED LIST changes: +CONTRAST GIVEN. MC PRN; +IOHEXOL 240 MG/ML 50ML VIAL. PO ONE; +IOHEXOL 300 MG/ML 100ML VIAL. IV ONE
--- NOTE | 2021-10-08 12:04 | RAD ---
EXAM: Chest, abdomen and pelvis CT with intravenous contrast. HISTORY: Colon cancer. TECHNIQUE: Computed tomographic images of the chest, abdomen and pelvis were obtained following the a dministration of intravenous contrast. Multiplanar reformatting was performed. *One or more of the following individualized dose reduction techniques were utilized for this examina tion: 1. Automated exposure control. 2. Adjustment of the mA and/or kV according to patient size. 3. Use of iterative reconstruction technique. COMPARISON: 01/01/2021. FINDINGS: Chest: The heart is normal in size. The aorta is normal in caliber. There is a left chest w all port catheter in expected position. There is no evidence of mediastinal, hilar or axillary lympha denopathy. There are innumerable bilateral pulmonary metastases. The majority of these lesions are st able to minimally increased in size compared to the prior exam. The largest lesion measures 1.7 cm within the medial superior segment of the left lower lobe, previou sly measuring 1.3 cm. There has been decrease in a previously demonstrated enlarged aortopulmonary wi ndow lymph node, measuring 1.2 cm compared to a prior measurement of 1.7 cm. There is no acute or lottie picious osseous finding. There are few lucent lesions likely due to osseous hemangiomas. No hepatic lesion is seen. The gallbladder, pancreas and adrenal glands are unremarkable. The spleen is upper normal in size. The kidneys are unremarkable. The cecum is positioned within the midline pel vis. There is no appendicitis. There is a large amount of colonic stool. There is no evidence of rey l obstruction. There is focal narrowing of the distal sigmoid colon likely due to peristalsis. There is a rectal surgical anastomosis with adjacent clip or suture material and stranding. There is no con vincing locally recurrent disease or local lymphadenopathy. The aorta is normal in caliber. There is a ventral abdominal wall hernia containing fat and loops of bowel. There is no evidence of bowel incarceration. There is no acute or suspicious osseous finding. There is degenerative change primarily at L4-L5 and L5-S1. IMPRESSION: 1. Innumerable pulmonary metastases, the majority of which are stable or minimally increased compared to the prior exam. The largest lesion measures 1.7 cm within the left lower lobe. 2. Significant decrease in an enlarged aortopulmonary window lymph node. There is no additional lymph adenopathy. 3. Rectal surgical anastomosis with adjacent suture material and stranding, stable in appearance. No locally recurrent or residual malignancy is seen. 4. Large amount of colonic stool. Correlate for constipation. 5. Ventral abdominal wall hernia containing fat and loops of bowel. Electronically signed by: Betsy Suggs MD (10/08/2021 12:02 PM) [id number]
== END ==
LOC: CT 10:23
PROVIDERS: ATTEND Internal Medicine Hematology & Oncology
DX: C78.02 Secondary malignant neoplasm of left lung (principal); C78.01 Secondary malignant neoplasm of right lung; C18.7 Malignant neoplasm of sigmoid colon; K43.9 Ventral hernia without obstruction or gangrene; K62.89 Other specified diseases of anus and rectum; R59.0 Localized enlarged lymph nodes; K56.41 Fecal impaction; M47.817 Spondylosis without myelopathy or radiculopathy, lumbosacral region
CPT/HCPCS: 71260; 74177; Q9966; Q9967

== ENCOUNTER → 2021-10-16 | Outpatient (CLI) | payer MEDICAID ==
[~2021-10-16] MED LIST changes: -CONTRAST GIVEN. MC PRN; -IOHEXOL 240 MG/ML 50ML VIAL. PO ONE; -IOHEXOL 300 MG/ML 100ML VIAL. IV ONE
[2021-10-16 10:09] LABS: CALCIUM 9.2 mg/dL (8.5-10.1); CREATININE 0.9 mg/dL (0.6-1.0)
[2021-10-16 10:14] LABS: ALBUMIN 3.5 g/dL (3.4-5.0); ALBUMIN/GLOBULIN RATIO 1.1 (1.0-1.7); BASO % 1 % (0-3); EOS % 1 % (0-3); HEMATOCRIT 35.1 % (36.0-47.0); HEMOGLOBIN 11.3 g/dL (12.0-15.5); LYMPH # 1.3 x10^3/uL (1.0-4.8); LYMPH % 35 % (24-48); MEAN CORPUSCULAR HEMOGLOBIN 29 pg (25-35); MEAN CORPUSCULAR HGB CONC 32 g/dL (31-37); MEAN CORPUSCULAR VOLUME 88 fL (79-100); MONO # 0.4 x10^3/uL (0.0-1.1); MONO % 10 % (0-9); NEUT % 53 % (31-73); PLATELET COUNT 209 x10^3/uL (140-400); RED BLOOD COUNT 3.99 x10^6/uL (3.50-5.40); RED CELL DISTRIBUTION WIDTH 19.3 % (11.5-14.5); TOTAL BILIRUBIN 0.4 mg/dL (0.2-1.0); TOTAL PROTEIN 6.8 g/dL (6.4-8.2); WHITE BLOOD COUNT 3.7 x10^3/uL (4.0-11.0)
[2021-10-16 13:08] LABS: CREATININE,RANDOM URINE 168.7 mg/dL (Not Establ.)
== END ==
LOC: ONCLAB 09:34
PROVIDERS: ATTEND Internal Medicine Hematology & Oncology
DX: C18.7 Malignant neoplasm of sigmoid colon (principal)
CPT/HCPCS: 36415; 80053; 82378; 82570; 84156; 85025

== ENCOUNTER → 2021-10-30 | Outpatient (CLI) | payer MEDICAID ==
[2021-10-30 11:04] LABS: BASO % 1 % (0-3); EOS % 1 % (0-3); HEMOGLOBIN 11.6 g/dL (12.0-15.5); LYMPH # 1.2 x10^3/uL (1.0-4.8); LYMPH % 33 % (24-48); MEAN CORPUSCULAR HEMOGLOBIN 28 pg (25-35); MEAN CORPUSCULAR HGB CONC 32 g/dL (31-37); MEAN CORPUSCULAR VOLUME 87 fL (79-100); MONO # 0.4 x10^3/uL (0.0-1.1); MONO % 11 % (0-9); NEUT % 54 % (31-73); PLATELET COUNT 244 x10^3/uL (140-400); RED BLOOD COUNT 4.14 x10^6/uL (3.50-5.40); RED CELL DISTRIBUTION WIDTH 19.1 % (11.5-14.5); WHITE BLOOD COUNT 3.7 x10^3/uL (4.0-11.0)
[2021-10-30 11:07] LABS: CREATININE,RANDOM URINE 150.5 mg/dL (Not Establ.)
[2021-10-30 11:10] LABS: GFR 60.2; POTASSIUM 4.3 mmol/L (3.5-5.1)
[2021-10-30 11:17] LABS: ALBUMIN 3.4 g/dL (3.4-5.0); ALBUMIN/GLOBULIN RATIO 0.9 (1.0-1.7); TOTAL BILIRUBIN 0.5 mg/dL (0.2-1.0); TOTAL PROTEIN 7.1 g/dL (6.4-8.2)
== END ==
LOC: ONCLAB 09:56
PROVIDERS: ATTEND Internal Medicine Hematology & Oncology
DX: C18.7 Malignant neoplasm of sigmoid colon (principal)
CPT/HCPCS: 36415; 80053; 82570; 84156; 85025

== ENCOUNTER → 2021-11-13 | Outpatient (CLI) | payer MEDICAID ==
[2021-11-13 10:50] LABS: BASO % 1 % (0-3); EOS # 0.1 x10^3/uL (0.0-0.7); EOS % 2 % (0-3); HEMOGLOBIN 10.8 g/dL (12.0-15.5); LYMPH # 1.1 x10^3/uL (1.0-4.8); LYMPH % 36 % (24-48); MEAN CORPUSCULAR HEMOGLOBIN 28 pg (25-35); MEAN CORPUSCULAR HGB CONC 32 g/dL (31-37); MEAN CORPUSCULAR VOLUME 88 fL (79-100); MONO # 0.3 x10^3/uL (0.0-1.1); MONO % 11 % (0-9); NEUT # 1.6 x10^3/uL (1.8-7.7); NEUT % 50 % (31-73); PLATELET COUNT 207 x10^3/uL (140-400); RED BLOOD COUNT 3.87 x10^6/uL (3.50-5.40); RED CELL DISTRIBUTION WIDTH 19.5 % (11.5-14.5); WHITE BLOOD COUNT 3.1 x10^3/uL (4.0-11.0)
[2021-11-13 11:05] LABS: CREATININE,RANDOM URINE 27.2 mg/dL (Not Establ.)
[2021-11-13 11:12] LABS: CALCIUM 9.2 mg/dL (8.5-10.1); CREATININE 0.8 mg/dL (0.6-1.0); GFR 77.9
[2021-11-13 11:15] LABS: ALBUMIN 3.1 g/dL (3.4-5.0); ALBUMIN/GLOBULIN RATIO 0.9 (1.0-1.7); TOTAL BILIRUBIN 0.4 mg/dL (0.2-1.0); TOTAL PROTEIN 6.6 g/dL (6.4-8.2)
== END ==
LOC: ONCLAB 09:52
PROVIDERS: ATTEND Physician Assistant
DX: C18.7 Malignant neoplasm of sigmoid colon (principal)
CPT/HCPCS: 36415; 80053; 82378; 82570; 84156; 85025

== ENCOUNTER 2021-11-22 07:26 | Outpatient (CLI) | payer MEDICAID ==
[~2021-11-22] VITALS: Ht 172.7 cm; Wt 77.3 kg
[2021-11-22 07:45] VITALS: BP 111/72
[2021-11-22] MEDS ORDERED: DULO60CA7 PO (07:52)
[2021-11-22] MEDS ORDERED: ALPR0.5T6 PO (07:52)
[2021-11-22] MEDS ORDERED: MONT10TA49 PO (07:52)
[2021-11-22] MEDS ORDERED: DEXA4TAB PO (07:52)
[2021-11-22] MEDS ORDERED: IOHEXOL 240 MG/ML 50ML VIAL. ONE (08:07)
[2021-11-22] MEDS ORDERED: IOHEXOL 240 MG/ML 50ML VIAL. IV ONE (08:15)
[2021-11-22] MEDS ORDERED: HEPARIN PF 500 UNIT/5 ML DISP.SYRIN. IVP ONE ×2 (08:18→08:30)
[2021-11-22] MEDS ORDERED: CONTRAST GIVEN. MC PRN (08:30)
--- NOTE | 2021-11-23 13:13 | RAD ---
Fluoroscopic evaluation, left subclavian port 11/23/2021 INDICATION: Port malfunction, all aspirated flush FINDINGS: Fluoroscopic evaluation of the patient's left subclavian port performed. No evidence of fra cture or leakage is identified. Catheter tip terminates in the region of the cavoatrial junction. No overt kinking is seen. The fibrin sheath is noted around distal aspect of the catheter. The port was flushed but not aspirate. Findings were discussed the patient. Various options were discussed includi ng administration of thrombolytics, fibrin sheath stripping, and port replacement. Sterile dressings were applied. No immediate complications were identified. Fluoroscopy time 0.2 minutes Dose area product 4 juan daniel centimeters squared Impression: Fibrin sheath around the distal aspect of the port. Various options were discussed includ ing administration of thrombolytics, fibrin sheath stripping, and port replacement. She would like to discuss options with her oncologist and return for further evaluation treatment as needed. Electronically signed by: Nate Michaud MD (11/23/2021 1:11 PM) [id number]
== END 2021-11-22 08:35 | disposition home or self-care (01) ==
LOC: INTRAD 07:26
PROVIDERS: ATTEND Internal Medicine Hematology & Oncology
DX: T82.598A Other mechanical complication of other cardiac and vascular devices and implants, initial encounter (principal); C18.7 Malignant neoplasm of sigmoid colon; J45.909 Unspecified asthma, uncomplicated; K21.9 Gastro-esophageal reflux disease without esophagitis; Z90.710 Acquired absence of both cervix and uterus; Z98.51 Tubal ligation status; Z98.890 Other specified postprocedural states; Z87.891 Personal history of nicotine dependence; Z72.89 Other problems related to lifestyle; Z79.899 Other long term (current) drug therapy; Z88.1 Allergy status to other antibiotic agents; Z88.8 Allergy status to other drugs, medicaments and biological substances; X58.XXXA Exposure to other specified factors, initial encounter; Y93.89 Activity, other specified; Y92.89 Other specified places as the place of occurrence of the external cause; Y99.8 Other external cause status
CPT/HCPCS: 36598; J1642; Q9966

== ENCOUNTER → 2021-11-27 | Outpatient (CLI) | payer MEDICAID ==
[2021-11-22 07:45] VITALS: BP 111/72
[~2021-11-27] MED LIST changes: +ALPR0.5T6 PO; +DEXA4TAB PO; +DULO60CA7 PO; +MONT10TA49 PO
[2021-11-27 09:41] LABS: BASO % 1 % (0-3); EOS % 1 % (0-3); HEMATOCRIT 36.3 % (36.0-47.0); HEMOGLOBIN 11.6 g/dL (12.0-15.5); LYMPH # 1.1 x10^3/uL (1.0-4.8); LYMPH % 32 % (24-48); MEAN CORPUSCULAR HEMOGLOBIN 28 pg (25-35); MEAN CORPUSCULAR HGB CONC 32 g/dL (31-37); MEAN CORPUSCULAR VOLUME 89 fL (79-100); MONO # 0.3 x10^3/uL (0.0-1.1); MONO % 10 % (0-9); NEUT # 1.9 x10^3/uL (1.8-7.7); NEUT % 57 % (31-73); PLATELET COUNT 235 x10^3/uL (140-400); RED BLOOD COUNT 4.08 x10^6/uL (3.50-5.40); RED CELL DISTRIBUTION WIDTH 19.8 % (11.5-14.5); WHITE BLOOD COUNT 3.4 x10^3/uL (4.0-11.0)
[2021-11-27 09:54] LABS: CALCIUM 9.1 mg/dL (8.5-10.1); GFR 60.2; POTASSIUM 4.6 mmol/L (3.5-5.1)
[2021-11-27 10:00] LABS: ALBUMIN 3.4 g/dL (3.4-5.0); ALBUMIN/GLOBULIN RATIO 0.9 (1.0-1.7); TOTAL BILIRUBIN 0.5 mg/dL (0.2-1.0); TOTAL PROTEIN 7.1 g/dL (6.4-8.2)
== END ==
LOC: ONCLAB 09:13
PROVIDERS: ATTEND Internal Medicine Hematology & Oncology
DX: C18.7 Malignant neoplasm of sigmoid colon (principal)
CPT/HCPCS: 36415; 80053; 82378; 85025

== ENCOUNTER 2021-12-06 08:21 | Outpatient (CLI) | payer MEDICAID ==
[~2021-12-06] VITALS: Ht 172.7 cm; Wt 80.9 kg
[2021-12-06] MEDS ORDERED: BUDE10.2 IH (09:01)
[2021-12-06] MEDS ORDERED: OLAN5TAB67 PO (09:01)
[2021-12-06] MEDS ORDERED: ALBU2.5V8 IH (09:01)
[2021-12-06] MEDS ORDERED: [UNRECOGNIZED DRUG - OTHER] IV (09:01)
[2021-12-06 09:03] VITALS: BP 111/73
[2021-12-06] MEDS ORDERED: LIDOCAINE 2%/EPI 1:100,000 20 ML VIAL. ONE (10:34)
[2021-12-06] MEDS ORDERED: MIDAZOLAM HCL/PF 2 MG/2 ML VIAL. ONE ×2 (10:43→11:42)
[2021-12-06] MEDS ORDERED: fentaNYL PF VIAL 100 MCG/2 ML VIAL ONE ×2 (10:43→11:42)
[2021-12-06] MEDS ORDERED: FLUMAZENIL 0.5 MG/5 ML VIAL. IV ONE (10:44)
[2021-12-06] MEDS ORDERED: VANCOMYCIN 1 GM in IV NORMAL SALINE 250ML 250 ML IV ONE (11:00)
[2021-12-06] MEDS ORDERED: MIDAZOLAM HCL/PF 2 MG/2 ML VIAL. IV ONE ×2 (11:15→11:45)
[2021-12-06] MEDS ORDERED: LIDOCAINE 1%/EPI 1:100,000 20 ML VIAL. ONE (11:15)
[2021-12-06] MEDS ORDERED: fentaNYL PF VIAL 100 MCG/2 ML VIAL IV ONE ×2 (11:15→11:45)
[2021-12-06] MEDS ORDERED: LIDOCAINE 2%/EPI 1:100,000 20 ML VIAL. IJ ONE (11:15)
[2021-12-06] MEDS ORDERED: LIDOCAINE 1%/EPI 1:100,000 20 ML VIAL. INJ ONE (11:45)
[2021-12-06] MEDS ORDERED: HEPARIN PF 500 UNIT/5 ML DISP.SYRIN. IVP ONE ×2 (11:59→12:00)
[2021-12-06 12:13] VITALS: BP 143/67
[2021-12-06 12:21] VITALS: BP 120/68
[2021-12-06 12:36] VITALS: BP 114/64
[2021-12-06 12:50] VITALS: BP 123/69
[2021-12-06 13:10] VITALS: BP 125/66
--- NOTE | 2021-12-06 13:12 | RAD ---
PROCEDURE: REMOVAL OF A TUNNELED CENTRAL VENOUS CATHETER with a PORT with fluoroscopy guidance (71003, [id number]) Moderate sedation (add CPT) HISTORY: Left subclavian port not working, does not aspirate. Flouroscopy-Radiation exposure: Kerma Air Product (in mGycm2): 0.1 Contrast: None. SEDATION: Under physician supervision, Versed and fentanyl were administered intravenously for moder ate sedation. Pulse oximetry, heart rate, and BP were continuously monitored by a dedicated qualifie d nurse. The physician spent 29 minutes of [id number] sedation time with the patient. Current history and physical and other medical records are reviewed prior to the procedure. ESTIMATED BLOOD LOSS: Less than 30 mL. COMPLICATIONS: None. Procedure: After maximal sterile barrier technique preparation and draping, 1% lidocaine was utilized for local anesthesia. The skin at the level of the chest wall port was sterilely prepped, draped, and infiltrated with lido asad. Initially examination with fluoroscopy is performed to evaluate for possibility port or catheter comp lication requiring modification of the removal technique. After making a short transverse incision, the port reservoir was freed using a combination of sharp a nd blunt dissection. The catheter was then removed. The deep tissues were approximated using 2-0 Vi cryl and incision closed using Dermabond. After removal fluoroscopy evaluation to confirm complete the removal without remnant is performed. FINDINGS: Fluoroscopy evaluation demonstrate normal appearance of the catheter with no fracture or pinching. Th e port pocket showed no evidence of infection. Fluoroscopy evaluation after removal confirms complet e removal. IMPRESSION: Successful removal of the tunneled left subclavian jugular port. Electronically signed by: Carlos Ta MD (12/06/2021 1:10 PM) [id number]
--- NOTE | 2021-12-06 13:14 | RAD ---
PROCEDURE: Infusion port placement with ultrasound and fluoroscopy guidance.(98190, [id number], [id number]) Moderate sedation (add CPT) INDICATION: 46 years Female with previously placed the port on the left side to that stopped workin g and aspirating. The left-sided port was removed a port on the right side will be placed, colon canc er. Flouroscopy-Radiation exposure: Kerma Air Product (in mGycm2): 1 Contrast: None. SEDATION: Under physician supervision, Versed and fentanyl were administered intravenously for moder ate sedation. Pulse oximetry, heart rate, and BP were continuously monitored by a dedicated qualifie d nurse. The physician spent 50 minutes of [id number] sedation time with the patient. Current history and physical and other medical records are reviewed prior to the procedure. OTHER MEDICATIONS: Vancomycin 1 g IV. PROCEDURE: After maximal sterile barrier technique preparation and draping, 1% lidocaine was utilized for local anesthesia. Ultrasound examination of the right internal jugular vein was performed and demonstrates patency of the vessel. This is deemed suitable for access. Ultrasound guidance is utilized for access into thi s vessel and corresponding ultrasound image was saved in the record. This was performed utilizing a micropuncture kit with a micropuncture sheath advanced into the SVC. A pocket site at the right chest wall is is infiltrated with local anesthesia . Then a 4 cm transvers e skin incision was made and subcutaneous pocket created with blunt dissection to accommodate the por t reservoir. The pocket was copiously irrigated and hemostasis obtained. After additional local anesthesia, tunnel ing of the port catheter is performed into the venous puncture site. Then over a guidewire an introducer sheath was placed into the superior vena cava. The port catheter was then advanced through the peel-away sheath, positioned under fluoroscopy with the distal tip in the cavoatrial junction. At this point the port fixed into the reservoir was flushed with saline and demonstrated adequate david w and packed with Hep-Lock solution. The subcutaneous pocket was then closed 3.0 Vicryl absorbable sweeney ture. Sterile dressing was applied. No immediate complications. IMPRESSION: Successful right IJV infusion Power port placement. Electronically signed by: Carlos Ta MD (12/06/2021 1:12 PM) [id number]
[2021-12-07] MEDS ORDERED: VANCOMYCIN 1 GM in IV NORMAL SALINE 250ML 250 ML IV PRN (06:00)
== END 2021-12-06 13:38 | disposition home or self-care (01) ==
LOC: INTRAD 08:21
PROVIDERS: ATTEND Internal Medicine Hematology & Oncology
DX: Z45.2 Encounter for adjustment and management of vascular access device (principal); J45.909 Unspecified asthma, uncomplicated; K21.9 Gastro-esophageal reflux disease without esophagitis; Z90.710 Acquired absence of both cervix and uterus; Z98.51 Tubal ligation status; Z98.890 Other specified postprocedural states; Z79.899 Other long term (current) drug therapy; Z87.891 Personal history of nicotine dependence; Z72.89 Other problems related to lifestyle; Z88.1 Allergy status to other antibiotic agents; Z88.8 Allergy status to other drugs, medicaments and biological substances
CPT/HCPCS: 36561; 36590; 76937; 77001; 99152; 99153; C1788; C1892; J1642; J2250; J3010; J3370; J3490; J7050; J7030

== ENCOUNTER → 2021-12-11 | Outpatient (CLI) | payer MEDICAID ==
[2021-12-06 13:10] VITALS: BP 125/66
[~2021-12-11] MED LIST changes: +ALBU2.5V8 IH; +OLAN5TAB67 PO; +[UNRECOGNIZED DRUG - OTHER] IV
[2021-12-11 09:35] LABS: BASO % 0 % (0-3); EOS # 0.1 x10^3/uL (0.0-0.7); EOS % 2 % (0-3); LYMPH # 1.3 x10^3/uL (1.0-4.8); LYMPH % 23 % (24-48); MEAN CORPUSCULAR HEMOGLOBIN 29 pg (25-35); MEAN CORPUSCULAR HGB CONC 32 g/dL (31-37); MEAN CORPUSCULAR VOLUME 90 fL (79-100); MONO # 0.5 x10^3/uL (0.0-1.1); MONO % 8 % (0-9); NEUT # 3.9 x10^3/uL (1.8-7.7); NEUT % 67 % (31-73); PLATELET COUNT 207 x10^3/uL (140-400); RED BLOOD COUNT 3.79 x10^6/uL (3.50-5.40); RED CELL DISTRIBUTION WIDTH 18.9 % (11.5-14.5); WHITE BLOOD COUNT 5.8 x10^3/uL (4.0-11.0)
[2021-12-11 09:50] LABS: GFR 60.2; POTASSIUM 3.8 mmol/L (3.5-5.1)
[2021-12-11 09:56] LABS: ALBUMIN 3.1 g/dL (3.4-5.0); ALBUMIN/GLOBULIN RATIO 0.9 (1.0-1.7); TOTAL BILIRUBIN 0.4 mg/dL (0.2-1.0); TOTAL PROTEIN 6.6 g/dL (6.4-8.2)
[2021-12-11 22:08] LABS: UR PROTEIN RD 10.6 mg/dL (Not Estab.)
== END ==
LOC: ONCLAB 09:01
PROVIDERS: ATTEND Internal Medicine Hematology & Oncology
DX: C18.7 Malignant neoplasm of sigmoid colon (principal)
CPT/HCPCS: 36415; 80053; 82378; 82570; 84156; 85025

== ENCOUNTER → 2021-12-25 | Outpatient (CLI) | payer MEDICAID ==
[2021-12-06 13:10] VITALS: BP 125/66
[2021-12-25 10:19] LABS: BASO % 1 % (0-3); EOS # 0.1 x10^3/uL (0.0-0.7); EOS % 2 % (0-3); HEMATOCRIT 33.5 % (36.0-47.0); LYMPH # 1.2 x10^3/uL (1.0-4.8); LYMPH % 27 % (24-48); MEAN CORPUSCULAR HEMOGLOBIN 29 pg (25-35); MEAN CORPUSCULAR HGB CONC 33 g/dL (31-37); MEAN CORPUSCULAR VOLUME 89 fL (79-100); MONO # 0.4 x10^3/uL (0.0-1.1); MONO % 10 % (0-9); NEUT # 2.7 x10^3/uL (1.8-7.7); NEUT % 61 % (31-73); PLATELET COUNT 198 x10^3/uL (140-400); RED BLOOD COUNT 3.77 x10^6/uL (3.50-5.40); RED CELL DISTRIBUTION WIDTH 17.8 % (11.5-14.5); WHITE BLOOD COUNT 4.5 x10^3/uL (4.0-11.0)
[2021-12-25 10:42] LABS: CALCIUM 8.8 mg/dL (8.5-10.1); CREATININE 0.9 mg/dL (0.6-1.0); POTASSIUM 3.8 mmol/L (3.5-5.1)
[2021-12-25 10:47] LABS: ALBUMIN 3.1 g/dL (3.4-5.0); ALBUMIN/GLOBULIN RATIO 0.9 (1.0-1.7); TOTAL BILIRUBIN 0.5 mg/dL (0.2-1.0); TOTAL PROTEIN 6.4 g/dL (6.4-8.2)
[2021-12-25 11:33] LABS: BACTERIA,URINE 0 /HPF (0-FEW); RBC,URINE 0 /HPF (0-2); WBC,URINE 0 /HPF (0-4)
== END ==
LOC: ONCLAB 09:54
PROVIDERS: ATTEND Internal Medicine Hematology & Oncology
DX: C18.7 Malignant neoplasm of sigmoid colon (principal)
CPT/HCPCS: 36415; 80053; 81001; 82378; 85025